=== PATIENT | male | born 1930 | race Caucasian/White ===

== ENCOUNTER → 2016-05-22 | Outpatient (CLI) | payer MEDICARE, OTHER ==
--- NOTE | 2016-05-22 13:07 | US ---
EXAMINATION TYPE: US kidneys/renal and bladder DATE OF EXAM: 05/22/2016 12:48 PM COMPARISON: 06/19/15 CLINICAL HISTORY: R31.9 Hematuria. Trauma and surgery to left kidney at age 18 per patient EXAM MEASUREMENTS: Right Kidney: 10.1 x 4.7 x 4.8 cm Left Kidney: 8.9 x 6.7 x 4.4 cm Post Void Residual Volume: 0.2 mL Findings: Right Kidney: couple of cortical cysts noted with larger at upper pole = 1.3 x 1.1 x 1.2cm; lower josafat e microcalcification is noted Left Kidney: possible hyperechoic scar area, oval shaped, noted upper medial cortex 2.0 x 1.4 x 0.8cm Bladder: not fully distended Bilateral Jets seen: yes Normal Post Void Residual: Yes IMPRESSION: 1. Right-sided renal cortical cysts and microcalcification. 2. Probable scarring left kidney.
== END | disposition home or self-care (01) ==
LOC: RADUSWWP 12:02
PROVIDERS: ATTEND Family Medicine
DX: N28.1 Cyst of kidney, acquired (principal); N28.89 Other specified disorders of kidney and ureter
CPT/HCPCS: 76770

== ENCOUNTER → 2016-06-14 | Outpatient (CLI) | payer MEDICARE, OTHER ==
--- NOTE | 2016-06-14 11:28 | MR ---
MR brain without contrast HISTORY: Dizzy, I 63.9, I 48.91, R25.1 Multiplanar multisequence imaging obtained through the brain. No comparisons There is no restricted diffusion. Cortical atrophy is likely age-related. There is no hemorrhage or h ydrocephalus. Periventricular white matter shows hyperintensity in confluent and scattered focal area s on inversion recovery and T2-weighted sequences. There are normal flow voids present. The orbits sh ow a symmetric appearance. Mild inflammatory change present within the maxillary sinus, ethmoid air c ells, some distortion of the turbinates on the left is noted, this may be congenital or represent old trauma and could be better evaluated with CT. Cerebellopontine angles, corpus callosum, pituitary, c ervical medullary junction are normal. IMPRESSION: Age-related changes of atrophy and probable chronic small vessel ischemia, sinus disease and additional findings above.
== END | disposition home or self-care (01) ==
LOC: RADMRIMAIN 07:00
PROVIDERS: ATTEND Psychiatry & Neurology Neurology
DX: G31.1 Senile degeneration of brain, not elsewhere classified (principal)
CPT/HCPCS: 70551

== ENCOUNTER 2016-07-15 10:51 | Inpatient (IN) | payer MEDICARE, OTHER ==
[2016-07-15] MEDS ORDERED: ASPIRIN 81 MG CHEW PO STA (11:23)
[2016-07-15] MEDS ORDERED: NITROGLYCERIN OINT 1 INCH/GM PACKET TOPICAL STA (11:23)
--- NOTE | 2016-07-15 11:27 | ED ---
General Adult HPI - General Chief complaint: Chest Pain Stated complaint: chest pain Time Seen by Provider: 07/15/16 11:00 Source: family, RN notes reviewed Mode of arrival: wheelchair Limitations: no limitations - History of Present Illness Initial comments: This is an 86-year-old male with past medical history significant for 2 cardiac stents as well as high cholesterol. Patient also has a history of atrial fibrillation he has been on flecainide but that caused him problems so they put him on a beta masoud as well as water pill. They recently took him off the water pill and a beta masoud. Patient was in today because his been having chest pain for a day and a half. Patient states the pain is intermittent lasting anywhere between 10 minutes and half an hour. Patient states also associated with some shortness of breath. Patient denies any palpitations. Patient denies abdominal pain patient denies nausea vomiting diarrhea. Patient denies any diaphoresis. Patient has not noticed anything that makes it better or worse. Patient denies headache patient denies numbness weakness. Patient denies lightheadedness dizziness or near syncopal episode. Patient was at the neurologists office yesterday and he called the comber tender's office they took him off his beta masoud and Lasix. But because his pain continues today he decided to come to the emergency department. - Related Data Home Medications Medication Instructions Recorded Confirmed Atorvastatin Calcium [Lipitor] 10 mg PO HS 04/14/16 07/15/16 Cholecalciferol [Vitamin D3] 1,000 unit PO DAILY 04/14/16 07/15/16 Carbidopa-Levodopa ER 25-100Mg 1 tab PO BID@0800,1300 07/15/16 07/15/16 [Sinemet ER 25-100] Spironolactone [Aldactone] 25 mg PO DAILY 07/15/16 07/15/16 Previous Rx's Medication Instructions Recorded Apixaban [Eliquis] 2.5 mg PO BID #60 tablet 04/16/16 Aspirin 81 mg PO DAILY #30 chew 04/16/16 Allergies Allergy/AdvReac Type Severity Reaction Status Date / Time flecainide Allergy Swelling Verified 07/15/16 12:08 steroids Allergy Rapid Uncoded 07/15/16 12:08 Heart Rate Review of Systems ROS Statement: Those systems with pertinent positive or pertinent negative responses have been documented in the HPI. ROS Other: All systems not noted in ROS Statement are negative. Past Medical History Past Medical History: Atrial Fibrillation, Hyperlipidemia, Myocardial Infarction (ND) Last Myocardial Infarction Date:: 2000 History of Any Multi-Drug Resistant Organisms: None Reported Past Surgical History: Heart Catheterization With Stent, Joint Replacement, Orthopedic Surgery Additional Past Surgical History / Comment(s): LEFT KNEE REPLACED Date of Last Stent Placement:: 2000 Past Psychological History: No Psychological Hx Reported Smoking Status: Never smoker Past Alcohol Use History: None Reported Past Drug Use History: None Reported General Exam - General Exam Comments Initial Comments: GENERAL: Patient is well-developed and well-nourished. Patient is nontoxic and well- hydrated and is in mild distress. ENT: Neck is soft and supple. No significant lymphadenopathy is noted. Oropharynx is clear. Moist mucous membranes. Neck has full range of motion without eliciting any pain. EYES: The sclera were anicteric and conjunctiva were pink and moist. Extraocular movements were intact and pupils were equal round and reactive to light. Eyelids were unremarkable. PULMONARY: Unlabored respirations. Good breath sounds bilaterally. No audible rales rhonchi or wheezing was noted. CARDIOVASCULAR: Patient has been irregular heartbeat. ABDOMEN: Soft and nontender with normal bowel sounds. No palpable organomegaly was noted. There is no palpable pulsatile mass. SKIN: Skin is clear with no lesions or rashes and otherwise unremarkable. NEUROLOGIC: Patient is alert and oriented x3. Cranial nerves II through XII are grossly intact. Motor and sensory are also intact. Normal speech, volume and content. Symmetrical smile. MUSCULOSKELETAL: Normal extremities with adequate strength and full range of motion. No lower extremity swelling or edema. No calf tenderness. LYMPHATICS: No significant lymphadenopathy is noted PSYCHIATRIC: Normal psychiatric evaluation. Normal interpersonal interactions appears functionally intact in deals appropriately with others. No signs of depression. No signs of anxiety. Limitations: no limitations Course Vital Signs 07/15/16 07/15/16 07/15/16 10:54 12:10 12:44 Temperature 97.4 F L Pulse Rate 80 94 100 Respiratory 18 20 16 Rate Blood Pressure 106/63 141/63 110/78 O2 Sat by Pulse 96 99 Oximetry 07/15/16 14:27 Temperature 101.1 F H Pulse Rate 96 Respiratory 18 Rate Blood Pressure 125/74 O2 Sat by Pulse 96 Oximetry Medical Decision Making - Medical Decision Making EKG showed atrial fibrillation at 92 bpm QRS is 82 QT interval 338 QTC is 417. Patient's EKG shows no ST segment elevation or depression or T-wave abdomen obese. Chest x-ray shows no acute abnormality. Patient will not be started on heparin because he is on eliquis. I spoke with Dr. Prado and I admitted the patient wrote admitting orders and consult cardiology. - Lab Data Result diagrams: 07/15/16 12:00 07/15/16 12:00 Lab Results 07/15/16 07/15/16 07/15/16 Range/Units 12:00 12:00 12:00 WBC 10.9 H (3.8-10.6) k/uL RBC 5.09 (4.30-5.90) m/uL Hgb 15.4 (13.0-17.5) gm/dL Hct 47.7 (39.0-53.0) % MCV 93.6 (80.0-100.0) fL MCH 30.2 (25.0-35.0) pg MCHC 32.3 (31.0-37.0) g/dL RDW 14.1 (11.5-15.5) % Plt Count 155 (150-450) k/uL Neutrophils % 77 % Lymphocytes % 12 % Monocytes % 8 % Eosinophils % 1 % Basophils % 0 % Neutrophils # 8.4 H (1.3-7.7) k/uL Lymphocytes # 1.3 (1.0-4.8) k/uL Monocytes # 0.9 (0-1.0) k/uL Eosinophils # 0.1 (0-0.7) k/uL Basophils # 0.0 (0-0.2) k/uL ESR 48 H (0-15) mm/hr PT (9.0-12.0) sec INR (<1.1) APTT (22.0-30.0) sec Sodium 142 (137-145) mmol/L Potassium 5.0 (3.5-5.1) mmol/L Chloride 101 (98-107) mmol/L Carbon Dioxide 28 (22-30) mmol/L Anion Gap 13 mmol/L BUN 45 H (9-20) mg/dL Creatinine 1.90 H (0.66-1.25) mg/dL Est GFR (MDRD) Af Amer 41 (>60 ml/min/1.73 sqM) Est GFR (MDRD) Non-Af 34 (>60 ml/min/1.73 sqM) Glucose 122 H (74-99) mg/dL Calcium 9.7 (8.4-10.2) mg/dL Magnesium 2.5 H (1.6-2.3) mg/dL Total Bilirubin 1.7 H (0.2-1.3) mg/dL AST 21 (17-59) U/L ALT 19 L (21-72) U/L Alkaline Phosphatase 85 (38-126) U/L Total Creatine Kinase 91 (55-170) U/L CK-MB (CK-2) 2.6 H* (0.0-2.4) ng/mL CK-MB (CK-2) Rel Index 2.9 Troponin I 0.056 H* (0.000-0.034) ng/mL NT-Pro-B Natriuret Pep pg/mL Total Protein 8.0 (6.3-8.2) g/dL Albumin 4.3 (3.5-5.0) g/dL Vitamin B12 pg/mL TSH 1.800 (0.465-4.680) mIU/L 07/15/16 07/15/16 07/15/16 Range/Units 12:00 12:00 12:00 WBC (3.8-10.6) k/uL RBC (4.30-5.90) m/uL Hgb (13.0-17.5) gm/dL Hct (39.0-53.0) % MCV (80.0-100.0) fL MCH (25.0-35.0) pg MCHC (31.0-37.0) g/dL RDW (11.5-15.5) % Plt Count (150-450) k/uL Neutrophils % % Lymphocytes % % Monocytes % % Eosinophils % % Basophils % % Neutrophils # (1.3-7.7) k/uL Lymphocytes # (1.0-4.8) k/uL Monocytes # (0-1.0) k/uL Eosinophils # (0-0.7) k/uL Basophils # (0-0.2) k/uL ESR (0-15) mm/hr PT 11.8 (9.0-12.0) sec INR 1.2 (<1.1) APTT 27.4 (22.0-30.0) sec Sodium (137-145) mmol/L Potassium (3.5-5.1) mmol/L Chloride (98-107) mmol/L Carbon Dioxide (22-30) mmol/L Anion Gap mmol/L BUN (9-20) mg/dL Creatinine (0.66-1.25) mg/dL Est GFR (MDRD) Af Amer (>60 ml/min/1.73 sqM) Est GFR (MDRD) Non-Af (>60 ml/min/1.73 sqM) Glucose (74-99) mg/dL Calcium (8.4-10.2) mg/dL Magnesium (1.6-2.3) mg/dL Total Bilirubin (0.2-1.3) mg/dL AST (17-59) U/L ALT (21-72) U/L Alkaline Phosphatase (38-126) U/L Total Creatine Kinase (55-170) U/L CK-MB (CK-2) (0.0-2.4) ng/mL CK-MB (CK-2) Rel Index Troponin I (0.000-0.034) ng/mL NT-Pro-B Natriuret Pep 6520 pg/mL Total Protein (6.3-8.2) g/dL Albumin (3.5-5.0) g/dL Vitamin B12 510 pg/mL TSH (0.465-4.680) mIU/L Critical Care Time Critical Care Time: Yes Total Critical Care Time: 35 Disposition Clinical Impression: Elevated troponin I level, Unstable angina pectoris, Pneumonia Disposition: ADMITTED IP TO THIS [facility] Time of Disposition: 14:05
[2016-07-15 12:21] LABS: Basophils % (A) 0 %; CH 31.1; CHCM 33.3; Eosinophils # (A) 0.1 k/uL (0-0.7); Eosinophils % (A) 1 %; HCT 47.7 % (39.0-53.0); HDW 2.26; HGB 15.4 gm/dL (13.0-17.5); Luc # (Auto) 0.23; Luc % (Auto) 2; Lymphocytes # (A) 1.3 k/uL (1.0-4.8); Lymphocytes % (A) 12 %; MCH 30.2 pg (25.0-35.0); MCHC 32.3 g/dL (31.0-37.0); MCV 93.6 fL (80.0-100.0); Mean Platelet Volume 7.5; Monocytes # (A) 0.9 k/uL (0-1.0); Monocytes % (A) 8 %; Neutrophils # (A) 8.4 k/uL (1.3-7.7); Neutrophils % (A) 77 %; RBC 5.09 m/uL (4.30-5.90); RDW 14.1 % (11.5-15.5); WBC 10.9 k/uL (3.8-10.6); WBC (Perox) 11.31
[2016-07-15 12:31] LABS: INR 1.2 (<1.1); Partial Thromboplastin Time 27.4 sec (22.0-30.0); Prothrombin Time 11.8 sec (9.0-12.0)
[2016-07-15 12:35] LABS: Calcium 9.7 mg/dL (8.4-10.2); Magnesium 2.5 mg/dL (1.6-2.3); Total Bilirubin 1.7 mg/dL (0.2-1.3)
--- NOTE | 2016-07-15 12:39 | XR ---
EXAMINATION TYPE: XR chest 2V DATE OF EXAM: 07/15/2016 12:25 PM COMPARISON: 04/14/2016 HISTORY: 86-year-old male with chest pain and shortness of breath TECHNIQUE: Frontal and lateral views FINDINGS: The heart is upper limits of normal in size. Atherosclerotic arch calcifications with similar mild el ongation of the thoracic aorta. There are some patchy peripheral left basilar opacity. No pleural eff usion. IMPRESSION: 1. Borderline cardiomegaly. 2. Some hypoventilatory changes. 3. Patchy peripheral left basilar opacity likely represents atelectasis.
[2016-07-15 13:13] LABS: Creatine Kinase MB 2.6 ng/mL (0.0-2.4); Troponin I 0.056 ng/mL (0.000-0.034)
[2016-07-15] MEDS ORDERED: HEPARIN SODIUM,PORCINE 5,000 UNIT/ML 1 ML VIAL IV ONE (14:03)
[2016-07-15] MEDS ORDERED: NITROGLYCERIN SL TABS 0.4 MG TAB SUBLINGUAL PRN (14:05)
[2016-07-15] MEDS ORDERED: HEPARIN SODIUM,PORCINE/D5W PMX 25,000 UNIT in DEXTROSE/WATER 1 500ML.BAG IV SCH (14:15)
[2016-07-15 14:17] LABS: Erythrocyte Sedimentation Rate 48 mm/hr (0-15)
[2016-07-15] MEDS ORDERED: IBUPROFEN 600 MG TAB PO STA (14:39)
[2016-07-15] MEDS ORDERED: ACETAMINOPHEN TAB 500 MG TAB PO STA (14:39)
[2016-07-15] MEDS ORDERED: LEVOFLOXACIN 750MG-D5W PMX 750 MG in DEXTROSE/WATER 1 150ML.BAG IVPB STA (14:39)
[2016-07-15] MEDS: NITROGLYCERIN OINT 1 INCH/GM PACKET TOPICAL SCH ×2 (17:09→23:40)
--- NOTE | 2016-07-15 18:12 | CONS ---
DATE OF CONSULTATION: Liudmila Lara is an 86-year-old gentleman with history of coronary artery disease, status post angioplasty of right coronary artery in 2000, hypertension, dyslipidemia, chronic diastolic heart failure, and paroxysmal atrial fibrillation who presented to the hospital having had episodes of chest pain. He describes it as intermittent episodes of precordial chest pressure mild to moderate intensity, came on at rest. Became worse. He also had discomfort involving shoulder area. Due to this, he came to hospital and his troponin was elevated at 0.05 for which he is admitted to hospital. He denies chest pain at the time of my evaluation. EKG shows atrial fibrillation. Past medical history is significant for coronary artery disease, status post angioplasty, hypertension, dyslipidemia, chronic atrial fibrillation, parkinsonism and possible TIA. Medications at home include: 1. Aldactone 25 mg daily. 2. Sinemet. 3. Vitamin D. 4. Lipitor. 5. Aspirin. 6. Eliquis. ALLERGIC TO FLECAINIDE AND STEROIDS. FAMILY HISTORY: Negative for premature coronary artery disease. SOCIAL HISTORY: Negative for smoking, ETOH abuse or drug abuse. REVIEW OF SYSTEMS: HEENT: Unremarkable. CARDIAC: As described above. RESPIRATORY: As described above. GI: Negative. GENITOURINARY: Negative. Allergy/immunology: Negative. SKIN: Negative. MUSCULOSKELETAL: Significant for arthritis. PSYCHOSOCIAL: Negative. ENDOCRINE: Negative. DERM: Negative. CONSTITUTIONAL: Negative. Oncological: Negative. The rest of the system review is not relevant. On exam, patient heart rate is 96 beats per minute, blood pressure 130/74, respiratory rate is 18. Chest exam reveals diminished air entry at the bases without any crackles or rhonchi. Heart exam reveals first and second heart sounds and a systolic murmur at the apex. ABDOMEN: Soft. Exam of the extremities did not reveal any edema. Peripheral pulses are diminished. ASSESSMENT: 1. Non-ST segment elevation myocardial infarction. 2. Chronic atrial fibrillation with controlled ventricular rate. 3. Coronary artery disease, status post angioplasty. 4. Hypertension. 5. Dyslipidemia. PLAN: Given the advanced age, possible recent transient ischemic attack, Parkinsonism and a questionable dementia, the plan at this stage is to treat him with optimal medical therapy and see how he does. I will obtain a 2-D echo to evaluate his LV function. Further changes to management based on how he progresses from here.
[2016-07-15 19:52] LABS: Creatine Kinase MB 2.7 ng/mL (0.0-2.4); Troponin I 0.079 ng/mL (0.000-0.034)
[2016-07-15] MEDS: APIXABAN 2.5 MG TABLET PO SCH (23:39)
[2016-07-15] MEDS: ATORVASTATIN 10 MG TAB PO SCH (23:39)
[2016-07-16 00:56] LABS: Creatine Kinase MB 2.2 ng/mL (0.0-2.4)
[2016-07-16 01:02] LABS: Troponin I 0.057 ng/mL (0.000-0.034)
[2016-07-16 03:15] LABS: Appearance,Urine Clear (Clear); Bacteria,Urine Rare /hpf; Bilirubin,Urine Negative (Negative); Glucose,Urine (UA) Negative (Negative); Ketones,Urine Negative (Negative); Leukocyte Esterase,Urine Negative (Negative); Nitrite,Urine Negative (Negative); Particle Count 624; Protein,Urine Negative (Negative); RBC,Urine 3 /hpf (0-5); Specific Gravity,Urine 1.005 (1.001-1.035); UA Billing (MACRO vs. MICRO) MICRO; Urobilinogen,Urine <2.0 mg/dL (<2.0); WBC,Urine <1 /hpf (0-5)
[2016-07-16] MEDS: NITROGLYCERIN OINT 1 INCH/GM PACKET TOPICAL SCH ×3 (06:22→17:04)
[2016-07-16 06:39] LABS: Basophils % (A) 0 %; CHCM 33.3; Eosinophils # (A) 0.2 k/uL (0-0.7); Eosinophils % (A) 2 %; HCT 41.1 % (39.0-53.0); HDW 2.26; HGB 13.2 gm/dL (13.0-17.5); Luc # (Auto) 0.28; Luc % (Auto) 3; Lymphocytes # (A) 1.2 k/uL (1.0-4.8); Lymphocytes % (A) 10 %; MCHC 32.2 g/dL (31.0-37.0); MCV 93.4 fL (80.0-100.0); Mean Platelet Volume 7.7; Monocytes # (A) 0.9 k/uL (0-1.0); Monocytes % (A) 8 %; Neutrophils # (A) 8.6 k/uL (1.3-7.7); Neutrophils % (A) 77 %; RBC 4.41 m/uL (4.30-5.90); RDW 14.1 % (11.5-15.5); WBC 11.1 k/uL (3.8-10.6); WBC (Perox) 11.45
[2016-07-16 06:49] LABS: Calcium 9.2 mg/dL (8.4-10.2)
--- NOTE | 2016-07-16 08:10 | HP ---
DATE OF ADMISSION: 07/15/2016 The chief complaint is chest pain. HISTORY OF PRESENT ILLNESS: This 86-year-old gentleman with the past medical history of multiple medical problems including atrial fibrillation, CAD, history of chest pain, history of hyperlipidemia, history of myocardial infarction, history of DJD, history of abdominal aortic aneurysm, history of CAD, stent, history of DJD, being followed by Dr. Lara in outpatient setting is complaining of chest pain. Chest pain is rather vague, felt in the anterior part of the chest and sometimes radiating up to the throat according to him. The patient was a flecainide for atrial fibrillation. The patient was recently off water pill and beta blockers according to him. The pain lasting nearly from 10 minutes to 1/2 hour associated with some shortness of breath. No history of palpitation or diaphoresis. Because of worsening pain, patient came to [facility], admitted for further evaluation and treatment. The troponins were found to be 0.050 and 0.019. The creatinine was elevated to 1.90. The EKG shows atrial fibrillation. The patient also had some short runs of V. tach also after admission. Cardiology evaluation in progress. There is no history of fever, rigors or chills. No history of headache, loss of consciousness or seizures at this time. PAST MEDICAL HISTORY: History of atrial fibrillation, history of CAD, history of hyperlipidemia, history of myocardial infarction, DJD, abdominal aortic aneurysm. Medications prior to admission include home medications: 1. Aldactone 25 mg p.o. daily. 2. Sinemet ER 25-100 one p.o. b.i.d. 3. Vitamin D3 one thousand units daily. 4. Lipitor 10 mg q.h.s. 5. Aspirin 81 mg daily. 6. Eliquis 2.5 mg p.o. b.i.d. Allergies are FLECAINIDE and STEROIDS. FAMILY HISTORY: History of pneumonia and heart problems. SOCIAL HISTORY: No history of smoking, no history of alcohol intake. REVIEW OF SYSTEMS: ENT: No diminished hearing or diminished vision. CARDIOVASCULAR: As mentioned earlier. RESPIRATORY: As mentioned earlier. GI: No nausea. : No dysuria. NERVOUS SYSTEM: No numbness or weakness. ALLERGY/IMMUNOLOGY: No asthma or hayfever. MUSCULOSKELETAL: As mentioned earlier. HEMATOLOGY/ONCOLOGY: No history of anemia. ENDOCRINE: No history of diabetes or hypothyroidism. CONSTITUTIONAL: As mentioned earlier. DERMATOLOGY: Negative. RHEUMATOLOGY: Negative. PSYCHIATRY: Negative. PHYSICAL EXAMINATION: Alert and oriented x2. Pulse 95, blood pressure 120/69, respirations 18, temperature is 97.6, T-max is 101.1, pulse ox 97% on 2 L. HEENT: Conjunctivae normal, oral mucosa moist. NECK: No jugular venous distension, no carotid bruit, no lymph node enlargement. CARDIOVASCULAR: S1, S2, muffled. No S3, no S4. RESPIRATORY: Breath sounds diminished in the bases. A few scattered rhonchi, no crackles. Abdomen is soft, nontender. No mass palpable. bs + EXTREMITIES: Legs no edema, no swelling. NERVOUS SYSTEM: Higher functions as mentioned, moves all 4 limbs, no focal motor deficits. LYMPHATICS: No lymph node enlargement in the neck. SKIN: No ulcer, rash or bleeding. LABS: WBC 10.9, INR 1.2, creatinine 1.90. Troponin noted. ASSESSMENT: 1. Chest pain, possible acute bti-RI-upxectb elevation myocardial infarction. 2. Atrial fibrillation. 3. Short-term soft nonsustained ventricular tachycardia. 4. Increased creatinine with chronic kidney disease stage III. 5. Increased total bilirubin. 6. Increased WBC, possibly reactive. 7. Fever for evaluation, possible viral syndrome. 8. History of atrial fibrillation. 9. History of coronary artery disease. 10. History of hyperlipidemia. 11. History of myocardial infarction. 12. History of DJD. 13. History of abdominal aortic aneurysm. 14. History of coronary artery disease, stent. 15. History of motion sickness. 16. FULL CODE. RECOMMENDATION: In this 86-year-old gentleman, who presented with multiple complex medical issues. Will monitor the patient closely. Continue with antiplatelet agents. The patient already on apixaban. Otherwise, empiric antibiotics have been given for the fever. We have obtained a Cardiology consultation. Continue to monitor. Will follow the cultures and monitor creatinine closely. Labs will be ordered. Home medication reconciliation will be done. Overall prognosis guarded because of multiple complex medical issues. Further recommendations to follow. A copy of this will be forwarded to Dr. Rusty Lara who is the primary physician. Will hold the Aldactone now that the potassium is at the upper limits of normal at 5. As mentioned earlier, will monitor the fluid closely. Chest x-ray was reviewed personally by me, discussed this with the patient. Further recommendations to follow. Prognosis guarded. MTDD
[2016-07-16] MEDS: ASPIRIN 325 MG TAB PO SCH (08:29)
[2016-07-16] MEDS: CARBIDOPA-LEVODOPA ER 25-100MG 1 EACH TABLET.ER PO SCH ×2 (08:29→12:22)
[2016-07-16] MEDS: APIXABAN 2.5 MG TABLET PO SCH ×2 (08:29→23:29)
[2016-07-16] MEDS: CHOLECALCIFEROL 1,000 UNIT TAB PO SCH (08:30)
[2016-07-16] MEDS ORDERED: ASPIRIN 81 MG CHEW PO SCH (09:00)
--- NOTE | 2016-07-16 10:31 | ECHOF ---
Referral Reason:Elevated trops MEASUREMENTS -------- HEIGHT: 167.6 cm WEIGHT: 75.8 kg BP: IVSd: 2.1 cm (0.6 - 1.1) LVIDd: 2.9 cm (3.9 - 5.3) LVPWd: 1.5 cm (0.6 - 1.1) IVSs: 2.0 cm LVIDs: 2.2 cm LVPWs: 2.2 cm Ao Diam: 3.5 cm (2.0 - 3.7) AV Cusp: 1.7 cm (1.5 - 2.6) LA Diam: 3.1 cm (2.7 - 3.8) MV EXCURSION: 14.577 mm (> 18.000) MV EF SLOPE: 89 mm/s (70 - 150) EPSS: 0.5 cm AR PHT: 359 ms RAP: 5.00 mmHg RVSP: 10.82 mmHg FINDINGS -------- Atrial fibrillation. This was a technically adequate study. The left ventricular size is normal. There is severe concentric left ventricular hypertrophy. Overall left ventricular systolic function is mildly impaired with, an EF between 45 - 50 %. Basal inferoseptal LV wall motion is hypokinetic. Inferior basal Hypokinesis The right ventricle is normal in size and function. The left atrium is normal in size. The right atrium is normal in size. There is mild aortic valve sclerosis. There is mild aortic regurgitation. Mild mitral annular calcification present. Mild mitral regurgitation is present. Mild tricuspid regurgitation present. The right ventricular systolic pressure, as measured by Doppler, is 10.82mmHg. There is no pulmonic regurgitation present. The aortic root size is normal. There is no pericardial effusion. CONCLUSIONS -------- 1. Atrial fibrillation. 2. Mild mitral annular calcification present. 3. Mild mitral regurgitation is present. 4. Mild tricuspid regurgitation present. 5. The right ventricular systolic pressure, as measured by Doppler, is 10.82mmHg. 6. There is no pulmonic regurgitation present. 7. The aortic root size is normal. 8. There is no pericardial effusion. 9. This was a technically adequate study. 10. There is severe concentric left ventricular hypertrophy. 11. Overall left ventricular systolic function is mildly impaired with, an EF between 45 - 50 %. 12. Basal inferoseptal LV wall motion is hypokinetic. 13. Inferior basal Hypokinesis 14. The left atrium is normal in size. 15. There is mild aortic valve sclerosis. 16. There is mild aortic regurgitation. [employer]: Angelica Rubio RDCS
--- NOTE | 2016-07-16 14:24 | P.PN ---
Subjective Principal diagnosis: Non-STEMI This is an 86-year-old gentleman with history of coronary artery disease and prior angioplasty, history of hypertension, hyperlipidemia, paroxysmal atrial fibrillation who presented to the hospital with non-Q-wave myocardial infarction. He was seen in consultation by Dr. Calderon and recommendation was given to maximize medical therapy. Echocardiogram with Doppler study was performed which revealed an ejection fraction of 45-50%. Basal inferior septal wall was hypokinetic. Blood pressure 124/64 heart rate in the 60s. WBC 11.1, hemoglobin 13.2, potassium 5.0, BUN 50, creatinine 2.1. Patient is currently on Eliquis for anticoagulation, we will decrease his aspirin to 81 mg daily. Discontinue Nitropaste. Start a low dose of beta masoud. Patient is not currently on an mary because of marginal blood pressure , we will monitor this daily and perhaps initiate an MARY inhibitor in the next couple of days if blood pressure tolerates. Objective - Vital Signs Vital signs: Vital Signs Temp 97.6 F 07/16/16 11:30 Pulse 64 07/16/16 11:30 Resp 18 07/16/16 11:30 BP 124/64 07/16/16 11:30 Pulse Ox 94 L 07/16/16 11:30 Intake & Output 07/15/16 07/16/16 07/16/16 18:59 06:59 18:59 Intake Total 240 500 120 Output Total 825 Balance 240 -325 120 Weight 77.111 kg 76 kg Intake: Oral 240 500 120 Output: Urine 825 Other: Voiding Method Urinal Urinal Urinal # Voids 1 1 # Bowel Movements 1 - Exam PHYSICAL EXAMINATION: HEENT: Head is atraumatic, normocephalic. Pupils equal, round. Neck is supple. There is no elevated jugular venous pressure. HEART EXAMINATION: R S1 and S2 1 systolic murmur is heard. CHEST EXAMINATION: Lungs are clear to auscultation and precussion. No chest wall tenderness is noted on palpation or with deep breathing. ABDOMEN: Soft, nontender. Bowel sounds are heard. No organomegaly noted. EXTREMITIES: 1+ peripheral pulses with no evidence of peripheral edema and no calf tenderness noted. NEUROLOGIC patient is awake, alert and oriented -2. . - Labs CBC & Chem 7: 07/16/16 05:44 07/16/16 05:44 Labs: Abnormal Lab Results - Last 24 Hours (Table) 07/15/16 07/16/16 07/16/16 Range/Units 18:43 00:02 03:00 WBC (3.8-10.6) k/uL Plt Count (150-450) k/uL Neutrophils # (1.3-7.7) k/uL BUN (9-20) mg/dL Creatinine (0.66-1.25) mg/dL Glucose (74-99) mg/dL CK-MB (CK-2) 2.7 H* (0.0-2.4) ng/mL Troponin I 0.079 H* 0.057 H* (0.000-0.034) ng/mL Urine Blood Moderate H (Negative) Urine Bacteria Rare H (None) /hpf 07/16/16 07/16/16 Range/Units 05:44 05:44 WBC 11.1 H (3.8-10.6) k/uL Plt Count 134 L (150-450) k/uL Neutrophils # 8.6 H (1.3-7.7) k/uL BUN 50 H (9-20) mg/dL Creatinine 2.13 H (0.66-1.25) mg/dL Glucose 122 H (74-99) mg/dL CK-MB (CK-2) (0.0-2.4) ng/mL Troponin I (0.000-0.034) ng/mL Urine Blood (Negative) Urine Bacteria (None) /hpf Microbiology - Last 24 Hours (Table) 07/16/16 03:00 Urine Culture - Preliminary Urine,Voided Assessment and Plan (1) NSTEMI (non-ST elevated myocardial infarction) Status: Acute (2) Chronic a-fib Status: Acute (3) CAD (coronary artery disease) Status: Acute (4) HTN (hypertension) Status: Acute (5) Hyperlipemia Status: Acute (6) Parkinson disease Status: Acute Plan: Cardiology's perspective we will decrease the aspirin to 81 mg daily, discontinue Nitropaste and add small dose of beta masoud. If the blood pressure tolerates consider the addition of an MARY inhibitor within 24-48 hours. DNP note has been reviewed, I agree with a documented findings and plan of care. Patient was seen and examined.
[2016-07-16 15:19] VITALS: BMI 27.0
[2016-07-16] MEDS ORDERED: LEVOFLOXACIN 750MG-D5W PMX 750 MG in DEXTROSE/WATER 1 150ML.BAG IVPB SCH (16:00)
[2016-07-16] MEDS: ATORVASTATIN 10 MG TAB PO SCH (23:25)
[2016-07-17] MEDS ORDERED: SODIUM CHLORIDE 0.9% 1,000 ML IV SCH (00:45)
[2016-07-17 06:29] LABS: Basophils % (A) 0 %; CHCM 33.1; Eosinophils # (A) 0.3 k/uL (0-0.7); Eosinophils % (A) 4 %; HCT 43.4 % (39.0-53.0); HDW 2.29; Luc # (Auto) 0.19; Luc % (Auto) 2; Lymphocytes # (A) 1.5 k/uL (1.0-4.8); Lymphocytes % (A) 16 %; MCH 30.3 pg (25.0-35.0); MCHC 32.3 g/dL (31.0-37.0); Mean Platelet Volume 7.5; Monocytes # (A) 0.5 k/uL (0-1.0); Monocytes % (A) 5 %; Neutrophils # (A) 6.9 k/uL (1.3-7.7); Neutrophils % (A) 73 %; RBC 4.62 m/uL (4.30-5.90); RDW 14.1 % (11.5-15.5); WBC 9.4 k/uL (3.8-10.6); WBC (Perox) 9.55
[2016-07-17] MEDS: NITROGLYCERIN OINT 1 INCH/GM PACKET TOPICAL SCH ×3 (06:36→07:57)
[2016-07-17 07:28] LABS: Calcium 9.8 mg/dL (8.4-10.2)
[2016-07-17] MEDS: ASPIRIN 325 MG TAB PO SCH (07:58)
[2016-07-17] MEDS: APIXABAN 2.5 MG TABLET PO SCH ×2 (07:58→20:22)
[2016-07-17] MEDS: CARBIDOPA-LEVODOPA ER 25-100MG 1 EACH TABLET.ER PO SCH ×2 (07:58→12:00)
[2016-07-17] MEDS: CHOLECALCIFEROL 1,000 UNIT TAB PO SCH (07:58)
--- NOTE | 2016-07-17 09:15 | PN ---
DATE OF SERVICE: 07/16/2016 This is an 86-year-old gentleman who was admitted with chest pain, possible acute non-ST elevation myocardial infarction, is being closely monitored. Patient's medical treatment, seen and evaluated the patient with the nurse practitioner. Please refer to nurse practitioner's notes and impression documented as ascribed for further information.
--- NOTE | 2016-07-17 09:53 | P.NPCON ---
History of Present Illness - Reason for Consult acute renal failure - History of Present Illness Reason for consultation: Acute kidney injury History of present illness: Patient is a 86-year-old male seen in renal consultation for acute kidney injury on chronic kidney disease. Patient has chronic kidney disease stage III with baseline creatinine near 1.4-1.5 secondary to cardiorenal syndrome. His creatinine this admission was elevated at 1.9 and was up to 2.1 yesterday. It is down to 1.9 again today. Patient presented with chest pain and dyspnea. He was subsequently diagnosed with non-ST elevated myocardial infarction. There is question for possible cardiac catheterization. He does have ejection fraction of 45-50%. He is currently resting in bed. Denies any active chest pain or shortness of breath. No vomiting or diarrhea. Urinalysis was noted to be benign. Denies lower extremity edema. He has been voiding without any gross hematuria. Denies use of NSAIDs at home. Denies any family history of renal disease. Vital signs are stable. General: The patient appeared well nourished and normally developed. HEENT: Head exam is unremarkable. Neck is without jugular venous distension. LUNGS: Lungs are clear to auscultation and percussion. Breath sounds decreased. HEART: Rate and Rhythm are regular. First and second heart sounds normal. No murmurs, rubs or gallops. ABDOMEN: Abdominal exam reveals normal bowel sounds. Non-tender and non- distended. No evidence of peritonitis. EXTREMITITES: No clubbing, cyanosis, or edema. Past Medical History Past Medical History: Atrial Fibrillation, Coronary Artery Disease (CAD), Chest Pain / Angina, Hyperlipidemia, Myocardial Infarction (IL), Osteoarthritis (OA) Additional Past Medical History / Comment(s): DJD, AAA-NOT SURE OF SIZE, "CYSTS ON EACH KIDNEY" Last Myocardial Infarction Date:: 2000 History of Any Multi-Drug Resistant Organisms: None Reported Past Surgical History: Heart Catheterization With Stent, Joint Replacement, Orthopedic Surgery Additional Past Surgical History / Comment(s): LEFT KNEE REPLACED, YOSELIN CATARACTS , CARDIAC STENTS X2, "LT KIDNEY BX-NEG" Past Anesthesia/Blood Transfusion Reactions: Motion Sickness Date of Last Stent Placement:: 2000 Past Psychological History: No Psychological Hx Reported Additional Psychological History / Comment(s): PT LIVES WITH HIS IN A SINGLE LEVEL HOME THAT HAS 3 STEPS TO GET INTO HOME.NO PETS. NO RECENT TRAVEL. USES A CANE OR WALKER WHEN UP. NO OTHER MEDICAL EQUIPMENT IN HOME. NO OUTSIDE SERVICES. 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 Smoking Status: Never smoker Past Alcohol Use History: None Reported Past Drug Use History: None Reported - Past Family History Mother Additional Family Medical History / Comment(s): "HEART PROBLEMS" Father Family Medical History: Pneumonia Medications and Allergies Home Medications Medication Instructions Recorded Confirmed Type Atorvastatin Calcium [Lipitor] 10 mg PO HS 04/14/16 07/15/16 History Cholecalciferol [Vitamin D3] 1,000 unit PO DAILY 04/14/16 07/15/16 History Carbidopa-Levodopa ER 25-100Mg 1 tab PO BID@0800,1300 07/15/16 07/15/16 History [Sinemet ER 25-100] Spironolactone [Aldactone] 25 mg PO DAILY 07/15/16 07/15/16 History Allergies Allergy/AdvReac Type Severity Reaction Status Date / Time flecainide Allergy Swelling Verified 07/15/16 12:08 steroids Allergy Rapid Uncoded 07/15/16 12:08 Heart Rate Physical Exam Vitals: Vital Signs Temp Pulse Resp BP BP BP Pulse Ox 07/17/16 08:00 95 18 07/17/16 07:56 98.9 F 95 18 141/75 95 07/17/16 04:00 97.5 F L 94 18 125/77 96 07/17/16 00:00 98.1 F 95 18 143/92 97 07/16/16 20:00 97.6 F 58 L 18 175/94 99 07/16/16 16:00 67 18 07/16/16 15:44 97.6 F 67 18 110/67 95 07/16/16 12:00 97.8 F 68 16 122/81 95 07/16/16 11:30 97.6 F 64 18 124/64 94 L 07/16/16 10:39 119/74 126/67 07/16/16 10:18 86 18 Pulse Ox Pulse Ox 07/17/16 08:00 07/17/16 07:56 07/17/16 04:00 07/17/16 00:00 07/16/16 20:00 07/16/16 16:00 07/16/16 15:44 07/16/16 12:00 07/16/16 11:30 07/16/16 10:39 96 95 07/16/16 10:18 Intake and Output 07/16/16 07/17/16 07/17/16 22:59 06:59 14:59 Intake Total 360 120 Output Total 1425 Balance 360 -1425 120 Intake: Oral 360 120 Output: Urine 1425 Other: Voiding Method Urinal Urinal Urinal # Voids 1 1 Weight 76 kg 76.2 kg Results - Lab Results Most recent lab results Calcium 9.8 mg/dL (8.4-10.2) 07/17/16 06:07 Magnesium 2.5 mg/dL (1.6-2.3) H 07/15/16 12:00 07/17/16 06:07 07/17/16 06:07 Assessment and Plan Plan: Assessment: #1. Nonoliguric acute kidney injury secondary to ATN secondary to hemodynamic instability/NSTEMI. Renal function stable with creatinine at 1.9 today. Urinalysis noted to be benign. #2. Non-ST elevated myocardial infarction. #3. Systolic CHF with ejection fraction of 45-50%. #4. Chronic kidney disease stage III secondary to cardiorenal syndrome with baseline creatinine near 1.4-1.6. Plan: Continue normal saline to be run at 50 mL an hour. Check renal ultrasound. Patient is cleared for cardiac catheterization from nephrology standpoint. I did discuss the risk of developing contrast-induced nephropathy especially when he has underlying chronic kidney disease. He understands. If he is to go for cardiac catheterization, I will increase the fluids to 75 mL an hour. Thank you for the consultation. I will continue to follow the patient with you during his hospital stay.
[2016-07-17] MEDS: METOPROLOL TARTRATE 12.5 MG TAB PO SCH ×2 (12:00→20:21)
[2016-07-17] MEDS: SODIUM CHLORIDE 0.9% 1,000 ML IV SCH (12:00)
--- NOTE | 2016-07-17 12:35 | P.PN ---
Subjective Date of service 07/16/2016. Progress note being dictated for Dr. Mackey. Interval history: This is an 86-year-old gentleman admitted with chest pain, possible acute non-STEMI, acute on chronic renal failure and multiple other medical issues. Evaluated by cardiology and cardiac catheterization being discussed. EF 45-50%. Renal function continues to slowly worsen. Afebrile, preliminary cultures negative Denies any chest pain, palpitations or increased shortness of breath. Objective - Vital Signs Vital signs: Vital Signs Temp 97.6 F 07/16/16 15:44 Pulse 67 07/16/16 16:00 Resp 18 07/16/16 16:00 BP 110/67 07/16/16 15:44 Pulse Ox 95 07/16/16 15:44 Intake & Output 07/16/16 07/16/16 07/17/16 06:59 18:59 06:59 Intake Total 500 600 Output Total 825 Balance -325 600 Weight 76 kg 76 kg Intake: Oral 500 600 Output: Urine 825 Other: Voiding Method Urinal Urinal # Voids 1 1 # Bowel Movements 1 - Exam PHYSICAL EXAM: VITAL SIGNS: As above GENERAL: [Sitting up in bed, no acute distress] HEENT: [Pupils equal conjunctiva normal.] NECK: [Supple, no JVD] RESPIRATORY EFFORT:[Normal] LUNGS: [Diminished, no crackles wheezes or rhonchi] CARDIOVASCULAR[regular S1 and S2, no murmurs rubs or gallops, no edema] GI: [Abdomen soft, nontender, positive bowel sounds.] PSYCH: [Alert and oriented -3, mood and affect normal.] NEURO: No focal deficits, moves all 4 extremities, strength and sensation intact. - Labs CBC & Chem 7: 07/17/16 06:07 07/17/16 06:07 Labs: Abnormal Lab Results - Last 24 Hours (Table) 07/16/16 07/16/16 07/16/16 Range/Units 00:02 03:00 05:44 WBC (3.8-10.6) k/uL Plt Count (150-450) k/uL Neutrophils # (1.3-7.7) k/uL BUN 50 H (9-20) mg/dL Creatinine 2.13 H (0.66-1.25) mg/dL Glucose 122 H (74-99) mg/dL Troponin I 0.057 H* (0.000-0.034) ng/mL Urine Blood Moderate H (Negative) Urine Bacteria Rare H (None) /hpf 07/16/16 Range/Units 05:44 WBC 11.1 H (3.8-10.6) k/uL Plt Count 134 L (150-450) k/uL Neutrophils # 8.6 H (1.3-7.7) k/uL BUN (9-20) mg/dL Creatinine (0.66-1.25) mg/dL Glucose (74-99) mg/dL Troponin I (0.000-0.034) ng/mL Urine Blood (Negative) Urine Bacteria (None) /hpf Microbiology - Last 24 Hours (Table) 07/15/16 14:40 Blood Culture - Preliminary Blood No Growth after 24 hours 07/16/16 03:00 Urine Culture - Preliminary Urine,Voided Assessment and Plan Plan: 1. Chest pain, possible acute non-STEMI. 2. [Persistent chronic atrial fibrillation, controlled ventricular rate]. 3. [Short-term nonsustained V. tach]. 4. [Acute on chronic kidney disease stage III]. 5. [Increased total bili]. 6. [Leukocytosis, suspect reactive]. 7. [Fever for evaluation, possibly viral syndrome, subsided, preliminary cultures negative,]. 8. Left basilar atelectasis 9. CAD, history of IL and previous stent 10. Hyperlipidemia 11. DJD 12. Abdominal aortic aneurysm 13. History of motion sickness Plan: Continue on current medication regime ,monitoring and symptomatic treatment. Gentle IV fluid hydration initiated for her worsening renal function. Close monitoring of renal function and electrolytes with repeat labs ordered for a.m. As cardiac catheterization being discussed, nephrology consult initiated. Updated and patient at bedside on plan of care. Patient's awaiting to further talk to Dr. Miller, who is her 's OP cane piler, tomorrow regarding options and recommendations. Further recommendations to follow. The impression and plan of care has been dictated as directed. : I performed a H&P examination of this patient and discussed the same with the dictator. I agree with the dictator's note. Any additional findings/opinions/ etc. will be noted.
--- NOTE | 2016-07-17 12:59 | US ---
EXAMINATION TYPE: US kidneys/renal and bladder DATE OF EXAM: 07/17/2016 12:38 PM COMPARISON: Renal ultrasound May 22, 2016. CLINICAL HISTORY: mine. EXAM MEASUREMENTS: Right Kidney: 9.5 x 5.0 x 4.4 cm Left Kidney: 9.0 x 8.9 x 4.7 cm Right Kidney: 2 cysts noted 1.) 1.7 x 1.5 x 1.4cm, 2.) 0.8 x 0.9 x 0.7cm Left Kidney: probable scarring as seen previously Bladder: not fully distended There is no evidence for hydronephrosis at this point in time. Some cortical thinning in both kidneys is redemonstrated. There are 2 simple appearing cysts in right kidney redemonstrated. No worrisome n ew lesions are seen. The urinary bladder is suboptimally evaluated as is not greatly distended. No w orrisome intraluminal mass is seen. Bilateral ureteral jets are seen. IMPRESSION: No hydronephrosis is evident bilaterally. No significant change from prior study is seen.
--- NOTE | 2016-07-17 14:22 | PN ---
Consultation requested by Dr. Prado. Patient is well known to me and follows with me for a long time. Patient had an angioplasty stenting of the right coronary done in 2000. Since that time patient has been doing very well. Patient is having some atypical chest pains and some dizzy spells which appears to be orthostatic related. May need to consider putting him on some medications for orthostasis. The patient admitted to the hospital with chest pains but troponins borderline with a creatinine of 1.9 and 20.0. In view of atypical not classical anginal symptoms and elevated creatinine, will do a Lexiscan. If the Lexiscan is abnormal, will consider cardiac catheterization and if Lexiscan is normal, will continue medical therapy along with nitroglycerin sublingually p.r.n. for chest pain. Chronic atrial fibrillation on anticoagulation. Hypertension, hyperlipidemia. Vital signs are stable. Patient does have some mild orthostatic hypotension, drop of approximately 20 mmHg. Dropped from 143 to 122. Looking into medications we may end up adding. Patient also has Parkinson's disease, some of the orthostatics may be related to his Parkinson's medications. Will add a small dose of Florinef 0.1 mg p.o. daily. VITAL SIGNS: Blood pressure 125/77 with a pulse rate of 94 irregularly irregular, respirations of 18. HEAD: Normocephalic. HEENT unremarkable. Neck is supple. No thyroid enlargement. CARDIAC: Regular rate and rhythm. S1 and S2. Lungs are clinically to auscultation. ABDOMEN: Soft, no organomegaly. ASSESSMENT: 1. Borderline troponin elevations with recurrent chest pains, but atypical. 2. Atherosclerotic heart disease, status post angioplasty and stenting of the right coronary artery done in 2000. 3. Hypertension. 4. Hyperlipidemia. 5. Parkinson disease. 6. Orthostatic changes related to probably Parkinson's disease. Will add some Florinef 0.1 mg p.o. daily and schedule him for a Lexiscan. If the Lexiscan is abnormal, will consider cardiac catheterization. If the Lexiscan is normal, will continue medical therapy with nitroglycerin. If the nitroglycerin relieves his symptoms consistently we will consider cardiac catheterization in spite of elevated creatinine and BUN.
[2016-07-17] MEDS ORDERED: LEVOFLOXACIN 750MG-D5W PMX 750 MG in DEXTROSE/WATER 1 150ML.BAG IVPB SCH (16:00)
[2016-07-17] MEDS ORDERED: ATORVASTATIN 40 MG TAB PO SCH (21:00)
[2016-07-18] MEDS ORDERED: LORazepam 2 MG/ML SYRINGE IV ONE (02:40)
[2016-07-18] MEDS ORDERED: REGADENOSON 0.4 MG/5 ML SYRINGE IV ONE (05:00)
[2016-07-18 06:56] LABS: Basophils % (A) 0 %; CH 31.2; CHCM 33.4; Eosinophils # (A) 0.4 k/uL (0-0.7); Eosinophils % (A) 4 %; HDW 2.37; HGB 13.1 gm/dL (13.0-17.5); Luc # (Auto) 0.23; Luc % (Auto) 3; Lymphocytes # (A) 1.4 k/uL (1.0-4.8); Lymphocytes % (A) 16 %; MCH 30.6 pg (25.0-35.0); MCHC 32.7 g/dL (31.0-37.0); MCV 93.7 fL (80.0-100.0); Monocytes # (A) 0.5 k/uL (0-1.0); Monocytes % (A) 6 %; Neutrophils # (A) 6.5 k/uL (1.3-7.7); Neutrophils % (A) 72 %; RBC 4.27 m/uL (4.30-5.90); RDW 14.1 % (11.5-15.5); WBC (Perox) 9.11
[2016-07-18 07:05] LABS: Calcium 9.5 mg/dL (8.4-10.2); Potassium 4.9 mmol/L (3.5-5.1)
[2016-07-18 07:57] VITALS: RESP 18
--- NOTE | 2016-07-18 08:17 | P.PN ---
Subjective Patient is seen in follow-up for acute kidney injury on chronic kidney disease. Patient has chronic kidney disease stage III secondary to cardiorenal syndrome with baseline creatinine near 1.4-1.6. He was elevated at 2.1 on admission and has been gradually improving. It is down to 1.72 today. Fluids were discontinued last night as he was quite anxious and there was concern that he will pull out his IV. His appetite has been good. Denies any chest pain or shortness of breath. He is currently admitted for non-ST elevated myocardial infarction and is scheduled to undergo stress test today. Vital signs are stable. General: The patient appeared well nourished and normally developed. HEENT: Head exam is unremarkable. Neck is without jugular venous distension. LUNGS: Lungs are clear to auscultation and percussion. Breath sounds decreased. HEART: Rate and Rhythm are regular. First and second heart sounds normal. No murmurs, rubs or gallops. ABDOMEN: Abdominal exam reveals normal bowel sounds. Non-tender and non- distended. No evidence of peritonitis. EXTREMITITES: No clubbing, cyanosis, or edema. Objective - Vital Signs Vital signs: Vital Signs Temp 97.1 F L 07/18/16 07:55 Pulse 91 07/18/16 07:55 Resp 18 07/18/16 07:55 BP 156/82 07/18/16 07:55 Pulse Ox 98 07/18/16 07:55 Intake & Output 07/17/16 07/18/16 07/18/16 18:59 06:59 18:59 Intake Total 660 20 Output Total 125 Balance 535 20 Intake: IV 20 Sodium Chloride 0.9% 1, 20 000 ml @ 20 mls/hr IV . Q24H REPLACED BY [facility] Rx#:[id number] Oral 660 Output: Urine 125 Other: Voiding Method Urinal # Voids 1 1 - Labs CBC & Chem 7: 07/18/16 06:24 07/18/16 06:24 Labs: Abnormal Lab Results - Last 24 Hours (Table) 07/18/16 07/18/16 Range/Units 06:24 06:24 RBC 4.27 L (4.30-5.90) m/uL Chloride 109 H (98-107) mmol/L BUN 44 H (9-20) mg/dL Creatinine 1.72 H (0.66-1.25) mg/dL Glucose 105 H (74-99) mg/dL Microbiology - Last 24 Hours (Table) 07/15/16 14:40 Blood Culture - Preliminary Blood No Growth after 48 hours 07/16/16 03:00 Urine Culture - Final Urine,Voided Assessment and Plan Plan: Assessment: #1. Nonoliguric acute kidney injury secondary to ATN secondary to hemodynamic instability/NSTEMI. Renal function improving with creatinine down to 1.7 to today. Urinalysis noted to be benign. No hydronephrosis noted on renal ultrasound. #2. Non-ST elevated myocardial infarction. #3. Systolic CHF with ejection fraction of 45-50%. #4. Chronic kidney disease stage III secondary to cardiorenal syndrome with baseline creatinine near 1.4-1.6. Plan: Patient is cleared for cardiac catheterization from nephrology standpoint. I did discuss the risk of developing contrast-induced nephropathy especially when he has underlying chronic kidney disease. Patient and the family understand. If he is to go for cardiac catheterization, I will start normal saline to be run at 75 mL an hour and continue for at least 12 hours post cardiac catheterization. Encourage oral intake. Continue to monitor renal function and urine output. Scheduled for stress test today.
[2016-07-18] MEDS: METOPROLOL TARTRATE 12.5 MG TAB PO SCH (08:28)
[2016-07-18] MEDS: APIXABAN 2.5 MG TABLET PO SCH (08:30)
[2016-07-18] MEDS: CARBIDOPA-LEVODOPA ER 25-100MG 1 EACH TABLET.ER PO SCH ×2 (08:30→12:10)
--- NOTE | 2016-07-18 08:48 | PN ---
DATE OF SERVICE: 07/17/2016 This 86-year-old gentleman who was admitted with chest pain, possible acute non-ST elevation myocardial infarction is scheduled for stress test tomorrow by Cardiology. No fever. No cough. Nephrology consultation underway. PHYSICAL EXAMINATION: Alert and oriented x3. Pulse is 92, blood pressure 140/66, respirations 16, temperature 98 degrees, no orthostatic changes. Pulse ox 95% in room air. HEENT: Conjunctivae normal. NECK: No jugular venous distention. CARDIOVASCULAR: S1 and S2, muffled. RESPIRATORY: Breath sounds diminished at the bases. No rhonchi, no crackles. ABDOMEN: Soft, nontender. LEGS: No edema, no swelling. NERVOUS SYSTEM: No focal deficits. LABS: CBC within normal limits. Creatinine is 1.90. ASSESSMENT: 1. Chest pain, possible acute non-ST elevation myocardial infarction. 2. Persistent chronic atrial fibrillation with controlled ventricular rate. 3. Nonsustained ventricular tachycardia. 4. Acute on chronic kidney disease stage III. 5. Increased total bilirubin. 6. Leukocytosis, possibly reactive. 7. Fever, possibly viral syndrome, subsided. Cultures negative. 8. Left basilar atelectasis. 9. Coronary artery disease, history of myocardial infarction on previous stent. 10. Hyperlipidemia. 11. Degenerative joint disease. 12. Abdominal aortic aneurysm history. 13. History of motion sickness. 14. FULL CODE. RECOMMENDATIONS AND DISCUSSION: In this 86-year-old gentleman who presented with multiple complex medical issues, we will monitor the patient closely. Follow closely with Cardiology, stress test. Closely follow with Nephrology. Guarded prognosis. Further recommendations to follow.
--- NOTE | 2016-07-18 08:52 | P.PN ---
Subjective Date of service 07/17/2016. Progress note being dictated for Dr. Mackey. Interval history: This is an 86-year-old gentleman admitted with chest pain, possible acute non-STEMI, acute on chronic renal failure and multiple other medical issues. Scheduled for stress test today. Yesterday gentle IV fluid hydration initiated for her worsening renal function with improvement noted this morning, creatinine 1.9. Evaluated by nephrology, renal ultrasound ordered , IV fluids increased. Afebrile, preliminary cultures negative Denies any chest pain, palpitations or increased shortness of breath. Objective - Vital Signs Vital signs: Vital Signs Temp 98 F 07/17/16 15:28 Pulse 92 07/17/16 15:28 Resp 18 07/17/16 15:28 BP 144/68 07/17/16 15:28 Pulse Ox 95 07/17/16 15:28 Intake & Output 07/16/16 07/17/16 07/17/16 18:59 06:59 18:59 Intake Total 600 300 Output Total 1425 125 Balance 600 -1425 175 Weight 76 kg 76.2 kg Intake: Oral 600 300 Output: Urine 1425 125 Other: Voiding Method Urinal Urinal Urinal # Voids 1 1 1 - Exam PHYSICAL EXAM: VITAL SIGNS: As above GENERAL: [Sitting up in bed, no acute distress] HEENT: [Pupils equal conjunctiva normal.] NECK: [Supple, no JVD] RESPIRATORY EFFORT:[Normal] LUNGS: Essentially clear, bilateral bases diminished,, no crackles wheezes or rhonchi] CARDIOVASCULAR[regular S1 and S2, no murmurs rubs or gallops, no edema] GI: [Abdomen soft, nontender, positive bowel sounds. No organomegaly.] PSYCH: [Alert and oriented -3, mood and affect normal.] NEURO: No focal deficits, moves all 4 extremities, strength and sensation intact. - Labs CBC & Chem 7: 07/18/16 06:24 07/18/16 06:24 Labs: Abnormal Lab Results - Last 24 Hours (Table) 07/17/16 Range/Units 06:07 BUN 49 H (9-20) mg/dL Creatinine 1.90 H (0.66-1.25) mg/dL Glucose 124 H (74-99) mg/dL Microbiology - Last 24 Hours (Table) 07/15/16 14:40 Blood Culture - Preliminary Blood No Growth after 48 hours 07/16/16 03:00 Urine Culture - Final Urine,Voided Assessment and Plan Plan: 1. Chest pain, possible acute non-STEMI. 2. [Persistent chronic atrial fibrillation, controlled ventricular rate]. 3. [Short-term nonsustained V. tach]. 4. [Acute on chronic kidney disease stage III, acute secondary to ATN, related to possible NSTEMI, chronic secondary to cardiorenal syndrome.]. 5. [Increased total bili]. 6. [Leukocytosis, suspect reactive]. 7. [Fever for evaluation, possibly viral syndrome, subsided, preliminary cultures negative,]. 8. Left basilar atelectasis 9. CAD, history of [place] and previous stent of RCA in 2000 10. Hyperlipidemia 11. DJD 12. Abdominal aortic aneurysm 13. History of motion sickness Plan: Continue on current medication regime ,monitoring and symptomatic treatment. Continue with IV fluid hydration. Close monitoring of renal function and electrolytes with repeat labs ordered for a.m. awaiting stress test. Follow closely with both cardiology and nephrology. Further recommendations to follow The impression and plan of care has been dictated as directed. : I performed a H&P examination of this patient and discussed the same with the dictator. I agree with the dictator's note. Any additional findings/opinions/ etc. will be noted.
[2016-07-18] MEDS ORDERED: ASPIRIN 81 MG CHEW PO SCH (09:00)
[2016-07-18] MEDS ORDERED: AMINOPHYLLINE 500 MG/20 ML VIAL IV PRN (09:00)
[2016-07-18] MEDS ORDERED: FLUDROCORTISONE 0.1 MG TAB PO SCH (09:00)
--- NOTE | 2016-07-18 11:52 | NM ---
EXAMINATION TYPE: NM stress Lexiscan cardiolite DATE OF EXAM: 07/18/2016 11:45 AM COMPARISON: NONE HISTORY: Chest pain TECHNIQUE: After the intravenous administration of 9.71 mCi Tc 99m Sestamibi - Cardiolite resting SP ECT images acquired 45 minutes post injection. The patient received 0.4mg Lexiscan, 26.9 mCi Tc 99m Sestamibi - Stress images obtained [address] injection FINDINGS: Review of stress and rest SPECT images demonstrates no distinct perfusion abnormality. Gated analysi s shows decreased wall motion with an estimated left ventricular ejection fraction of 40 %. IMPRESSION: 1. GLOBAL HYPOKINESIA. 2. I DO NOT SEE CONVINCING EVIDENCE OF INDUCIBLE ISCHEMIC CHANGE AT THIS TIME.
[2016-07-18] MEDS: CHOLECALCIFEROL 1,000 UNIT TAB PO SCH (12:08)
[2016-07-18] MEDS: SODIUM CHLORIDE 0.9% 1,000 ML IV SCH (12:08)
--- NOTE | 2016-07-18 12:20 | P.PN ---
Subjective Principal diagnosis: Non-STEMI This is an 86-year-old gentleman with history of coronary artery disease and prior angioplasty, history of hypertension, hyperlipidemia, paroxysmal atrial fibrillation who presented to the hospital with non-Q-wave myocardial infarction. He was seen in consultation by Dr. Calderon and recommendation was given to maximize medical therapy. Echocardiogram with Doppler study was performed which revealed an ejection fraction of 45-50%. Basal inferior septal wall was hypokinetic. Patient underwent a Lexiscan stress test today which was negative for reversible ischemia.BUN 44 today, creatinine 1.7, potassium 4.9. Objective - Vital Signs Vital signs: Vital Signs Temp 98.2 F 07/18/16 08:00 Pulse 91 07/18/16 08:00 Resp 18 07/18/16 09:00 BP 156/82 07/18/16 08:00 Pulse Ox 95 07/18/16 08:00 Intake & Output 07/17/16 07/18/16 07/18/16 18:59 06:59 18:59 Intake Total 660 20 120 Output Total 125 125 Balance 535 20 -5 Weight 76.2 kg 76.2 kg Intake: IV 20 20 Sodium Chloride 0.9% 1, 20 20 000 ml @ 20 mls/hr IV . Q24H [facility] Rx#:[id number] Oral 660 100 Output: Urine 125 125 Other: Voiding Method Urinal Urinal # Voids 1 1 1 - Exam PHYSICAL EXAMINATION: HEENT: Head is atraumatic, normocephalic. Pupils equal, round. Neck is supple. There is no elevated jugular venous pressure. HEART EXAMINATION: R S1 and S2 1 systolic murmur is heard. CHEST EXAMINATION: Lungs are clear to auscultation and precussion. No chest wall tenderness is noted on palpation or with deep breathing. ABDOMEN: Soft, nontender. Bowel sounds are heard. No organomegaly noted. EXTREMITIES: 1+ peripheral pulses with no evidence of peripheral edema and no calf tenderness noted. NEUROLOGIC patient is awake, alert and oriented -2. . - Labs CBC & Chem 7: 07/18/16 06:24 07/18/16 06:24 Labs: Abnormal Lab Results - Last 24 Hours (Table) 07/18/16 07/18/16 Range/Units 06:24 06:24 RBC 4.27 L (4.30-5.90) m/uL Chloride 109 H (98-107) mmol/L BUN 44 H (9-20) mg/dL Creatinine 1.72 H (0.66-1.25) mg/dL Glucose 105 H (74-99) mg/dL Microbiology - Last 24 Hours (Table) 07/15/16 14:40 Blood Culture - Preliminary Blood No Growth after 48 hours 07/16/16 03:00 Urine Culture - Final Urine,Voided Assessment and Plan (1) NSTEMI (non-ST elevated myocardial infarction) Status: Acute (2) Chronic a-fib Status: Acute (3) CAD (coronary artery disease) Status: Acute (4) HTN (hypertension) Status: Acute (5) Hyperlipemia Status: Acute (6) Parkinson disease Status: Acute Plan: Cardiology's perspective , we will increase metoprolol to 25 mg one tablet by mouth twice a day. Patient is not currently on an MARY inhibitor because of elevated potassium level. We will reevaluate this as an outpatient. From our perspective he may be able to be discharged home today to follow-up with Dr. Miller in the office post discharge. DNP note has been reviewed, I agree with a documented findings and plan of care. Patient was seen and examined.
[2016-07-18 12:38] VITALS: BP 132/79; PULSE 80; TEMP 96.2
--- NOTE | 2016-07-18 13:16 | EST ---
DATE OF SERVICE: 07/18/16. AGE: 86Y SEX: M HT: 66" WT: 167 lbs. Protocol Hernandez: Other: X Stage: Dur. of Exercise: *Heart Rate Blood Pressure *Rest: 83 Rest: 120/81 * *Max. Achieved: 118 Maximum BP: 148/( 8)5% PMHR: 116 100% PMHR: 136 *METS: INDICATIONS: MEDICATIONS: Baseline rhythm is atrial fibrillation, rate of 83, occasional PVCs, nonspecific ST-T wave changes. Baseline blood pressure 120/81 mmHg. The patient received injection of Lexiscan. Electrocardiograph monitoring revealed no evidence of diagnostic ischemic ST deviation. Cardiolite was injected per protocol. CONCLUSION: 1. Nondiagnostic electrocardiograph stress testing. 2. Nuclear images will be reported separately.
--- NOTE | 2016-07-19 13:07 | DS ---
DATE OF ADMISSION: 07/15/2016 DATE OF DISCHARGE: 07/18/2016 FINAL DIAGNOSES: 1. Chest pain, possible unstable angina. 2. Troponin 0.05, indeterminate. 3. Stress test showing global hypokinesia but no convincing evidence of inducible ischemic changes. 4. Persistent chronic atrial fibrillation controlled ventricular rate. 5. nonsustained ventricular tachycardia. 6. Acute on chronic kidney disease stage III possibly secondary to acute tubular necrosis related to possible cardiorenal syndrome. 7. Increased total bilirubin. 8. Leukocytosis suspected reactive. 9. Fever, possible acute viral syndrome subsided, culture is negative. 10. Left basilar atelectasis. 11. Coronary artery disease. 12. History of myocardial infarction. 13. Previous stenting of the RCA. 14. Hyperlipidemia. 15. History of degenerative joint disease. 16. History of abdominal aortic aneurysm. 17. History of motion sickness. DISCHARGE DISPOSITION: The patient will be discharged in stable condition with guarded prognosis. Total time taken is 35 minutes. Discharge cleared by cardiology. HISTORY OF PRESENT ILLNESS: This 86-year-old gentleman admitted to the hospital with multiple complex medical issues, the patient was treated conservatively with cardiology and nephrology. The patient had a stress test, which showed no inducible ischemia otherwise was treated medically. The patient improved significantly. Please note the patient has been followed by Dr. Rusty Lara in the outpatient setting. On exam, vitals are stable. CARDIOVASCULAR SYSTEM: S1, S2 muffled. ABDOMEN: Soft. CENTRAL NERVOUS SYSTEM: No focal deficits. Creatinine stabilized at 1.72. Troponins indeterminate as mentioned earlier. HOME was negative. Cultures were also negative. White count improved to 9. The patient is being discharged in stable condition with the following advice and medications: 1. Diet is cardiac. 2. Activity limited until follow. 3. Follow-up with Dr. Rusty Lara in 2 to 3 days. 4. Follow with Dr. James Samuels as advised. 5. Follow-up with Dr. Painter as advised. 6. CBC, BMP as an outpatient. 7. Continued follow-up. The medications on which the patient is being sent home includes: 1. Carbidopa/L-dopa 25/100 one p.o. b.i.d. 2. Vitamin D3 1000 daily. 3. Aspirin 81 mg daily. 4. Eliquis 2.5 mg b.i.d. 5. Nitrostat. 6. Lopressor 25 mg b.i.d. 7. Levaquin 500 mg daily. 8. Florinef 0.05 mg p.o. daily. 9. Lipitor 40 mg q.h.s. Once again, again, the patient will be discharged in a stable condition with guarded prognosis. MTDD
== END 2016-07-18 14:18 | disposition home or self-care (01) | DRG 302 ==
LOC: EC 10:51 → 6SEL 14:05
PROVIDERS: ADMIT Internal Medicine; ATTEND Internal Medicine
DX: I25.110 Atherosclerotic heart disease of native coronary artery with unstable angina pectoris (principal); N17.0 Acute kidney failure with tubular necrosis; I47.2 Ventricular tachycardia; I13.0 Hypertensive heart and chronic kidney disease with heart failure and stage 1 through stage 4 chronic kidney disease, or unspecified chronic kidney disease; I48.1 Persistent atrial fibrillation; I50.42 Chronic combined systolic (congestive) and diastolic (congestive) heart failure; J98.11 Atelectasis; G20 Parkinson's disease; E78.5 Hyperlipidemia, unspecified; Z95.5 Presence of coronary angioplasty implant and graft; I95.1 Orthostatic hypotension; E78.00 Pure hypercholesterolemia, unspecified; N18.3 Chronic kidney disease, stage 3 (moderate); I25.2 Old myocardial infarction; M19.91 Primary osteoarthritis, unspecified site; Z86.79 Personal history of other diseases of the circulatory system; Z87.01 Personal history of pneumonia (recurrent); Z79.01 Long term (current) use of anticoagulants; Z79.82 Long term (current) use of aspirin; Z79.899 Other long term (current) drug therapy
CPT/HCPCS: 36415; 71020; 76770; 78452; 80048; 80053; 80061; 81001; 82550; 82553; 82607; 83605; 83735; 83880; 84443; 84484; 85025; 85610; 85652; 85730; 86038; 86618; 86780; 87040; 87086; 87502; 93005; 93017; 93306; 99291

== ENCOUNTER → 2016-08-13 | Outpatient (CLI) | payer MEDICARE, OTHER ==
[2016-08-13 10:29] LABS: CHCM 33.7; HCT 42.7 % (39.0-53.0); HGB 14.4 gm/dL (13.0-17.5); MCH 31.2 pg (25.0-35.0); MCHC 33.8 g/dL (31.0-37.0); MCV 92.3 fL (80.0-100.0); Mean Platelet Volume 7.2; RBC 4.63 m/uL (4.30-5.90); RDW 14.5 % (11.5-15.5)
[2016-08-13 10:36] LABS: Appearance,Urine Clear (Clear); Bilirubin,Urine Negative (Negative); Glucose,Urine (UA) Negative (Negative); Ketones,Urine Negative (Negative); Leukocyte Esterase,Urine Negative (Negative); Nitrite,Urine Negative (Negative); Particle Count 755; Protein,Urine Negative (Negative); RBC,Urine 17 /hpf (0-5); Specific Gravity,Urine 1.008 (1.001-1.035); UA Billing (MACRO vs. MICRO) MICRO; Urobilinogen,Urine <2.0 mg/dL (<2.0)
[2016-08-13 13:55] LABS: Calcium 9.8 mg/dL (8.4-10.2); Magnesium 2.1 mg/dL (1.6-2.3); Phosphorous 4.5 mg/dL (2.5-4.5); Potassium 5.2 mmol/L (3.5-5.1); Uric Acid 8.5 mg/dL (3.5-8.5)
== END | disposition home or self-care (01) ==
LOC: LABWHC1 09:43
PROVIDERS: ATTEND Nurse Practitioner Family
DX: N17.9 Acute kidney failure, unspecified (principal); I50.9 Heart failure, unspecified; D64.9 Anemia, unspecified; N39.0 Urinary tract infection, site not specified; M10.9 Gout, unspecified
CPT/HCPCS: 36415; 80048; 81001; 82728; 83540; 83550; 83735; 84100; 84550; 85027

== ENCOUNTER → 2016-10-15 | Outpatient (CLI) | payer MEDICARE, OTHER ==
[2016-10-15 08:43] LABS: CH 31.7; CHCM 33.2; HCT 43.1 % (39.0-53.0); HDW 2.44; MCH 31.2 pg (25.0-35.0); MCHC 32.5 g/dL (31.0-37.0); MCV 95.8 fL (80.0-100.0); RDW 14.3 % (11.5-15.5); WBC 8.8 k/uL (3.8-10.6)
[2016-10-15 08:44] LABS: Amorphous Sediment,Urine Rare /hpf; Appearance,Urine Clear (Clear); Bilirubin,Urine Negative (Negative); Glucose,Urine (UA) Negative (Negative); Ketones,Urine Negative (Negative); Leukocyte Esterase,Urine Negative (Negative); Mucus,Urine Rare /hpf; Nitrite,Urine Negative (Negative); PH, Urine 6.5 (5.0-8.0); Particle Count 1097; Protein,Urine Negative (Negative); RBC,Urine 17 /hpf (0-5); Specific Gravity,Urine 1.012 (1.001-1.035); UA Billing (MACRO vs. MICRO) MICRO; Urobilinogen,Urine <2.0 mg/dL (<2.0); WBC,Urine 1 /hpf (0-5)
[2016-10-15 10:55] LABS: Calcium 9.5 mg/dL (8.4-10.2); Magnesium 2.1 mg/dL (1.6-2.3); Phosphorous 3.5 mg/dL (2.5-4.5); Potassium 4.9 mmol/L (3.5-5.1); Uric Acid 10.6 mg/dL (3.5-8.5)
[2016-10-15 11:05] LABS: % Iron Saturation 24.2 % (20-50)
== END | disposition home or self-care (01) ==
LOC: LABWHC1 08:18
PROVIDERS: ATTEND Nurse Practitioner Family
DX: N17.9 Acute kidney failure, unspecified (principal); I50.9 Heart failure, unspecified; D64.9 Anemia, unspecified; N39.0 Urinary tract infection, site not specified; M10.9 Gout, unspecified
CPT/HCPCS: 36415; 80048; 81001; 82728; 83540; 83550; 83735; 84100; 84550; 85027

== ENCOUNTER → 2017-01-28 | Outpatient (CLI) | payer MEDICARE, OTHER ==
[2017-01-28 11:16] LABS: CH 32.5; CHCM 33.2; HCT 40.2 % (39.0-53.0); HDW 2.51; HGB 12.8 gm/dL (13.0-17.5); MCH 31.4 pg (25.0-35.0); MCHC 31.9 g/dL (31.0-37.0); MCV 98.7 fL (80.0-100.0); Macrocytosis Slight; Mean Platelet Volume 8.2; RBC 4.07 m/uL (4.30-5.90); RDW 15.8 % (11.5-15.5); WBC 8.6 k/uL (3.8-10.6)
[2017-01-28 11:33] LABS: Calcium 9.4 mg/dL (8.4-10.2); Magnesium 2.5 mg/dL (1.6-2.3); Phosphorus 3.5 mg/dL (2.5-4.5); Potassium 4.4 mmol/L (3.5-5.1); Uric Acid 7.3 mg/dL (3.5-8.5)
[2017-01-28 12:19] LABS: Appearance,Urine Clear (Clear); Bilirubin,Urine Negative (Negative); Glucose,Urine (UA) Negative (Negative); Ketones,Urine Negative (Negative); Leukocyte Esterase,Urine Negative (Negative); Nitrite,Urine Negative (Negative); Particle Count 354; Protein,Urine Negative (Negative); RBC,Urine 2 /hpf (0-5); Specific Gravity,Urine 1.005 (1.001-1.035); UA Billing (MACRO vs. MICRO) MICRO; Urobilinogen,Urine <2.0 mg/dL (<2.0); WBC,Urine <1 /hpf (0-5)
[2017-01-28 15:17] LABS: Iron Saturation 24.47 (15.00-50.00)
== END | disposition home or self-care (01) ==
LOC: LABWHC1 10:36
PROVIDERS: ATTEND Nurse Practitioner Family
DX: N17.9 Acute kidney failure, unspecified (principal); N39.0 Urinary tract infection, site not specified; M10.9 Gout, unspecified; D50.9 Iron deficiency anemia, unspecified; E55.9 Vitamin D deficiency, unspecified; N25.81 Secondary hyperparathyroidism of renal origin
CPT/HCPCS: 36415; 80048; 81001; 82306; 82728; 83540; 83550; 83735; 83970; 84100; 84550; 85027

== ENCOUNTER → 2017-03-23 | Outpatient (CLI) | payer MEDICARE, BC ==
[2017-03-23 11:16] LABS: CH 31.8; CHCM 32.9; HCT 40.9 % (39.0-53.0); HGB 13.1 gm/dL (13.0-17.5); MCH 31.1 pg (25.0-35.0); MCHC 32.1 g/dL (31.0-37.0); MCV 96.9 fL (80.0-100.0); Mean Platelet Volume 7.5; RBC 4.22 m/uL (4.30-5.90); RDW 14.3 % (11.5-15.5); WBC 7.8 k/uL (3.8-10.6)
[2017-03-23 11:33] LABS: Potassium 4.4 mmol/L (3.5-5.1)
== END | disposition home or self-care (01) ==
LOC: LABPAT 10:45
PROVIDERS: ATTEND Internal Medicine Interventional Cardiology
DX: Z01.812 Encounter for preprocedural laboratory examination (principal); I25.10 Atherosclerotic heart disease of native coronary artery without angina pectoris
CPT/HCPCS: 36415; 80051; 82565; 84520; 85027

== ENCOUNTER → 2017-04-30 | Outpatient (CLI) | payer MEDICARE, OTHER ==
[2017-04-30 14:44] LABS: Appearance,Urine Clear (Clear); Bilirubin,Urine Negative (Negative); Blood,Urine Small (Negative); Color,Urine Yellow; Glucose,Urine (UA) Negative (Negative); Hyaline Casts,Urine 4 /lpf (0-2); Ketones,Urine Negative (Negative); Leukocyte Esterase,Urine Negative (Negative); Mucus,Urine Rare /hpf; Nitrite,Urine Negative (Negative); PH, Urine 6.5 (5.0-8.0); Protein,Urine Negative (Negative); RBC,Urine 15 /hpf (0-5); Specific Gravity,Urine 1.009 (1.001-1.035); WBC,Urine 1 /hpf (0-5)
[2017-04-30 14:45] LABS: Calcium 9.4 mg/dL (8.4-10.2); Magnesium 1.9 mg/dL (1.6-2.3); Phosphorus 3.5 mg/dL (2.5-4.5); Potassium 4.4 mmol/L (3.5-5.1); Uric Acid 7.1 mg/dL (3.5-8.5)
[2017-04-30 14:54] LABS: Anisocytosis Slight; Basophils % (A) 1 %; Eosinophils # (A) 0.3 k/uL (0-0.7); Eosinophils % (A) 4 %; HCT 38.2 % (39.0-53.0); HGB 11.7 gm/dL (13.0-17.5); Hypochromasia Slight; Lymphocytes # (A) 1.2 k/uL (1.0-4.8); Lymphocytes % (A) 18 %; MCH 30.9 pg (25.0-35.0); MCHC 30.5 g/dL (31.0-37.0); Macrocytosis Slight; Mean Platelet Volume 8.5; Monocytes # (A) 0.5 k/uL (0-1.0); Monocytes % (A) 8 %; Neutrophils # (A) 4.6 k/uL (1.3-7.7); Neutrophils % (A) 67 %; Platelet Count 140 k/uL (150-450); RBC 3.77 m/uL (4.30-5.90); RDW 16.3 % (11.5-15.5); WBC 6.8 k/uL (3.8-10.6)
[2017-04-30 14:57] LABS: MCV 101.3 fL (80.0-100.0)
[2017-04-30 18:49] LABS: Iron Saturation 13.2 (15.00-50.00)
[2017-04-30 18:57] LABS: Vitamin D 25 Hydroxy 33.3 ng/mL (30.0-100.0)
[2017-04-30 21:43] LABS: Parathyroid Hormone Intact 170.6 pg/mL (14.0-72.0)
== END | disposition home or self-care (01) ==
LOC: LABWHC1 13:51
PROVIDERS: ATTEND Internal Medicine Nephrology
DX: N18.3 Chronic kidney disease, stage 3 (moderate) (principal); M10.9 Gout, unspecified; D64.9 Anemia, unspecified; E55.9 Vitamin D deficiency, unspecified; E21.3 Hyperparathyroidism, unspecified; N39.0 Urinary tract infection, site not specified
CPT/HCPCS: 36415; 80048; 81001; 82306; 82728; 83540; 83550; 83735; 83970; 84100; 84550; 85025

== ENCOUNTER 2017-06-24 09:50 | Emergency (ER) | payer MEDICARE, OTHER ==
--- NOTE | 2017-06-24 10:15 | ED ---
General Adult HPI - General Chief complaint: Dental/Oral Stated complaint: Sent by PCP blood in mouth Time Seen by Provider: 06/24/17 10:03 Source: patient, family, RN notes reviewed Mode of arrival: ambulatory Limitations: no limitations - History of Present Illness Initial comments: This 86-year-old male presents emergency Department chief complaint of bleeding from his mouth. Patient states last 2 mornings woke up with blood noted coming out of his mouth and blister. He states that the first morning his woke him up and is blood all way down history. Patient states that he has no idea where this is coming from. He states that it's only coming out of his mouth though. Patient denies any trauma. Patient states he does take Xarelto though he called his ferry boat captain yesterday who advised him to hold it for the next 3- 4 days. Patient had an episode today follow-up with PCP was sent him here for evaluation. Patient does add that he has recently been receiving iron infusions he states he does not know why he is trying to physician or anemic. Patient states that his received 2 of these. Patient also states that he occasionally has difficulty swallowing food and liquids he states it feels like it stuck in his chest. He's had no prior EGD's. Patient did have a recent urinalysis which showed some hematuria. Patient states that he did notice some dark stools recently also. - Related Data Home Medications Medication Instructions Recorded Confirmed Allopurinol [Zyloprim] 100 mg PO DAILY 03/27/17 06/24/17 Hydrochlorothiazide 12.5 mg PO DAILY 03/27/17 06/24/17 Midodrine [ProAmatine] 2.5 mg PO BID 03/27/17 06/24/17 Calcitriol 0.25 mcg PO Q7D 06/24/17 06/24/17 Previous Rx's Medication Instructions Recorded Atorvastatin [Lipitor] 40 mg PO HS #30 tab 07/18/16 Fludrocortisone [Florinef] 0.05 mg PO DAILY #30 tab 07/18/16 Metoprolol Tartrate [Lopressor] 25 mg PO BID #60 tablet 07/18/16 Nitroglycerin Sl Tabs [Nitrostat] 0.4 mg SUBLINGUAL Q5M PRN #100 tab 07/18/16 Clopidogrel [Plavix] 75 mg PO DAILY #90 tab 04/01/17 Rivaroxaban [Xarelto] 15 mg PO W/SUPPER #90 tab 04/01/17 Allergies Allergy/AdvReac Type Severity Reaction Status Date / Time flecainide Allergy Swelling Verified 06/24/17 10:16 steroids Allergy Rapid Uncoded 06/11/17 11:07 Heart Rate Review of Systems ROS Statement: Those systems with pertinent positive or pertinent negative responses have been documented in the HPI. ROS Other: All systems not noted in ROS Statement are negative. 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 Low blood pressure. Does get confused @ times. Last Myocardial Infarction Date:: 2000 History of Any Multi-Drug Resistant Organisms: None Reported Past Surgical History: Heart Catheterization With Stent, Joint Replacement, Orthopedic Surgery Additional Past Surgical History / Comment(s): LEFT KNEE REPLACED, YOSELIN CATARACTS , CARDIAC STENTS X2, 3rd stent placed 03/31/2017"LT KIDNEY BX-NEG", colonoscopy. Past Anesthesia/Blood Transfusion Reactions: Motion Sickness Date of Last Stent Placement:: 2016 Past Psychological History: No Psychological Hx Reported Smoking Status: Never smoker Past Alcohol Use History: None Reported Past Drug Use History: None Reported - Past Family History Mother Additional Family Medical History / Comment(s): "HEART PROBLEMS" Father Family Medical History: Pneumonia General Exam Limitations: no limitations General appearance: alert, in no apparent distress Head exam: Present: atraumatic, normocephalic, normal inspection Eye exam: Present: normal appearance, PERRL, EOMI. Absent: scleral icterus, conjunctival injection, periorbital swelling ENT exam: Present: normal exam, normal oropharynx, mucous membranes moist, TM's normal bilaterally, normal external ear exam Neck exam: Present: normal inspection, full ROM. Absent: tenderness, meningismus, lymphadenopathy Respiratory exam: Present: normal lung sounds bilaterally. Absent: respiratory distress, wheezes, rales, rhonchi, stridor Cardiovascular Exam: Present: regular rate, normal rhythm, normal heart sounds. Absent: systolic murmur, diastolic murmur, rubs, gallop, clicks GI/Abdominal exam: Present: soft, normal bowel sounds. Absent: distended, tenderness, guarding, rebound, rigid Skin exam: Present: warm, dry, intact, normal color. Absent: rash Course Vital Signs 06/24/17 09:53 Temperature 98.1 F Pulse Rate 60 Respiratory 20 Rate Blood Pressure 126/73 O2 Sat by Pulse 98 Oximetry Medical Decision Making - Medical Decision Making 86-year-old male present emergency department for complaints of bleeding orally. His symptoms have resolved for the past 2 days after he notices it without treatment. Patient presented with no active bleeding he did have some complaints of some difficult swallowing and recent iron transfusions. Patient had full workup including lab work, CT rule out any sort of mass or areas of concern of bleeding. The CT was negative at this time. Dr. muñoz I did discuss the case with Dr. Lara wants the patient to hold his xarelto, follow-up with him in office in on-call ENT he is return for any bleeding for reevaluation. - Lab Data Result diagrams: 06/24/17 10:30 06/24/17 10:30 Lab Results 06/24/17 06/24/17 06/24/17 Range/Units 10:30 10:30 10:30 WBC 9.3 (3.8-10.6) k/uL RBC 4.05 L (4.30-5.90) m/uL Hgb 12.5 L (13.0-17.5) gm/dL Hct 37.6 L (39.0-53.0) % MCV 92.8 D (80.0-100.0) fL MCH 30.8 (25.0-35.0) pg MCHC 33.2 (31.0-37.0) g/dL RDW 14.9 (11.5-15.5) % Plt Count 128 L (150-450) k/uL Neutrophils % 74 % Lymphocytes % 13 % Monocytes % 8 % Eosinophils % 4 % Basophils % 0 % Neutrophils # 6.9 (1.3-7.7) k/uL Lymphocytes # 1.2 (1.0-4.8) k/uL Monocytes # 0.7 (0-1.0) k/uL Eosinophils # 0.4 (0-0.7) k/uL Basophils # 0.0 (0-0.2) k/uL PT (9.0-12.0) sec INR (<1.2) APTT (22.0-30.0) sec Sodium 140 (137-145) mmol/L Potassium 4.0 (3.5-5.1) mmol/L Chloride 101 (98-107) mmol/L Carbon Dioxide 29 (22-30) mmol/L Anion Gap 10 mmol/L BUN 36 H (9-20) mg/dL Creatinine 1.32 H (0.66-1.25) mg/dL Est GFR (MDRD) Af Amer >60 (>60 ml/min/1.73 sqM) Est GFR (MDRD) Non-Af 52 (>60 ml/min/1.73 sqM) Glucose 88 (74-99) mg/dL Calcium 9.5 (8.4-10.2) mg/dL Magnesium 1.8 (1.6-2.3) mg/dL Total Bilirubin 0.8 (0.2-1.3) mg/dL AST 23 (17-59) U/L ALT 34 (21-72) U/L Alkaline Phosphatase 117 (38-126) U/L Total Protein 6.8 (6.3-8.2) g/dL Albumin 3.7 (3.5-5.0) g/dL Blood Type O Positive Blood Type Recheck No Antibody Screen NEGATIVE Spec Expiration Date 06/27/2017 - 232906/24/17 Range/Units 10:30 WBC (3.8-10.6) k/uL RBC (4.30-5.90) m/uL Hgb (13.0-17.5) gm/dL Hct (39.0-53.0) % MCV (80.0-100.0) fL MCH (25.0-35.0) pg MCHC (31.0-37.0) g/dL RDW (11.5-15.5) % Plt Count (150-450) k/uL Neutrophils % % Lymphocytes % % Monocytes % % Eosinophils % % Basophils % % Neutrophils # (1.3-7.7) k/uL Lymphocytes # (1.0-4.8) k/uL Monocytes # (0-1.0) k/uL Eosinophils # (0-0.7) k/uL Basophils # (0-0.2) k/uL PT 11.6 (9.0-12.0) sec INR 1.2 H (<1.2) APTT 24.5 (22.0-30.0) sec Sodium (137-145) mmol/L Potassium (3.5-5.1) mmol/L Chloride (98-107) mmol/L Carbon Dioxide (22-30) mmol/L Anion Gap mmol/L BUN (9-20) mg/dL Creatinine (0.66-1.25) mg/dL Est GFR (MDRD) Af Amer (>60 ml/min/1.73 sqM) Est GFR (MDRD) Non-Af (>60 ml/min/1.73 sqM) Glucose (74-99) mg/dL Calcium (8.4-10.2) mg/dL Magnesium (1.6-2.3) mg/dL Total Bilirubin (0.2-1.3) mg/dL AST (17-59) U/L ALT (21-72) U/L Alkaline Phosphatase (38-126) U/L Total Protein (6.3-8.2) g/dL Albumin (3.5-5.0) g/dL Blood Type Blood Type Recheck Antibody Screen Spec Expiration Date Disposition Clinical Impression: Oral bleeding, Anemia Disposition: HOME SELF-CARE Condition: Stable Additional Instructions: Return to emergency department immediately for any bleeding. Follow-up with your PCP and ENT as directed.Please return to the Emergency Department if symptoms worsen or any other concerns. Referrals: Rusty Lara MD [Primary Care Provider] - 1-2 days Chandu Harrison DO [Doctor of Osteopathic Medicine] - 1-2 days Time of Disposition: 12:37
[2017-06-24] MEDS ORDERED: RX INFO: IV CONTRAST WAS GIVEN 1 EACH MISC MISCELLANE PRN (10:20)
[2017-06-24 11:01] LABS: INR 1.2 (<1.2); Partial Thromboplastin Time 24.5 sec (22.0-30.0); Prothrombin Time 11.6 sec (9.0-12.0)
[2017-06-24 11:04] LABS: Basophils % (A) 0 %; Eosinophils # (A) 0.4 k/uL (0-0.7); Eosinophils % (A) 4 %; HCT 37.6 % (39.0-53.0); HGB 12.5 gm/dL (13.0-17.5); Lymphocytes # (A) 1.2 k/uL (1.0-4.8); Lymphocytes % (A) 13 %; MCH 30.8 pg (25.0-35.0); MCHC 33.2 g/dL (31.0-37.0); Mean Platelet Volume 8.4; Monocytes # (A) 0.7 k/uL (0-1.0); Monocytes % (A) 8 %; Neutrophils # (A) 6.9 k/uL (1.3-7.7); Neutrophils % (A) 74 %; Platelet Count 128 k/uL (150-450); RBC 4.05 m/uL (4.30-5.90); RDW 14.9 % (11.5-15.5); WBC 9.3 k/uL (3.8-10.6)
[2017-06-24 11:05] LABS: MCV 92.8 fL (80.0-100.0)
[2017-06-24 11:07] LABS: ALT 34 U/L (21-72); AST 23 U/L (17-59); Albumin 3.7 g/dL (3.5-5.0); Alkaline Phosphatase 117 U/L (38-126); Anion Gap 10 mmol/L; Blood Urea Nitrogen 36 mg/dL (9-20); Calcium 9.5 mg/dL (8.4-10.2); Carbon Dioxide 29 mmol/L (22-30); Chloride 101 mmol/L (98-107); Glucose 88 mg/dL (74-99); Sodium 140 mmol/L (137-145); Total Bilirubin 0.8 mg/dL (0.2-1.3); Total Protein 6.8 g/dL (6.3-8.2)
--- NOTE | 2017-06-24 12:15 | CT ---
EXAMINATION TYPE: CT neck chest w con DATE OF EXAM: 06/24/2017 12:04 PM COMPARISON: NONE HISTORY: bleeding from mouth CT DLP: 1233 mGycm Automated exposure control for dose reduction was used. CONTRAST: CT scan of the neck is performed following with IV Contrast, patient injected with 80 mL of Visipaque 320. Axial images are obtained, coronal and sagittal reformatted images are reviewed. FINDINGS: Airway: No gross abnormality seen. Parotid/submandibular glands: No inflammatory change surrounding the parotid or submandibular glands . There is symmetric fatty atrophy of both the parotid and submandibular glands related to age. Carotid/Vascular Structures: Limited without the utilization of intravenous contrast, however there a ppears to be nonhemodynamically significant (less than 30% stenosis of the carotid bulbs bilaterally. Osseous Structures: Moderate multilevel degenerative changes of the cervical spine are seen with mild right neural foraminal narrowing at C2-C3, moderate right and mild left neuroforaminal narrowing at C3-C4, mild bilateral neural foraminal narrowing at C4-C5 and C5-C6, and moderate right neural forami nal narrowing at C6-C7. No significant spinal canal stenosis. Scant mucosal thickening within the rig ht maxillary sinus and hypoplastic left maxillary sinus are incidentally noted. There is mild leftwar d nasal septal deviation and a leftward nasal septal spur. Remainder the paranasal sinuses and mastoi d air cells are well aerated. Multiple dental fillings creates spray artifact and partially obscure s urrounding visualization. No distinct periapical abscess/dentigerous abscess is seen. Other: Scattered subsegmental atelectasis is seen within the lung bases. IMPRESSION: 1. No evidence for oropharyngeal mass or abscess. Airways patent. 2. Moderate multilevel degenerative changes of the cervical spine resulting in multilevel variable de grees of neural foraminal stenosis as described above.
[2017-06-24 12:49] VITALS: BP 161/94; PULSE 81; RESP 16; TEMP 96.3
== END 2017-06-24 12:49 | disposition home or self-care (01) ==
LOC: EC 09:50
DX: K06.8 Other specified disorders of gingiva and edentulous alveolar ridge (principal); D64.9 Anemia, unspecified; R13.10 Dysphagia, unspecified; I48.91 Unspecified atrial fibrillation; I25.119 Atherosclerotic heart disease of native coronary artery with unspecified angina pectoris; I25.2 Old myocardial infarction; N28.9 Disorder of kidney and ureter, unspecified; Z79.01 Long term (current) use of anticoagulants; Z79.899 Other long term (current) drug therapy; Z88.8 Allergy status to other drugs, medicaments and biological substances
CPT/HCPCS: 36415; 86900; 86901; 80053; 83735; 85025; 85610; 85730; 86850; 70491; 71260; 99284; Q9967

== ENCOUNTER → 2017-08-12 | Outpatient (CLI) | payer MEDICARE, OTHER ==
[2017-08-12 09:38] LABS: Basophils % (A) 0 %; Eosinophils # (A) 0.3 k/uL (0-0.7); Eosinophils % (A) 4 %; HCT 41.6 % (39.0-53.0); HGB 13.5 gm/dL (13.0-17.5); Lymphocytes # (A) 1.3 k/uL (1.0-4.8); Lymphocytes % (A) 17 %; MCH 31.1 pg (25.0-35.0); MCHC 32.5 g/dL (31.0-37.0); MCV 95.9 fL (80.0-100.0); Mean Platelet Volume 8.2; Monocytes # (A) 0.6 k/uL (0-1.0); Monocytes % (A) 7 %; Neutrophils # (A) 5.5 k/uL (1.3-7.7); Neutrophils % (A) 70 %; Platelet Count 145 k/uL (150-450); RBC 4.34 m/uL (4.30-5.90); WBC 7.8 k/uL (3.8-10.6)
[2017-08-12 09:43] LABS: Appearance,Urine Clear (Clear); Bilirubin,Urine Negative (Negative); Blood,Urine Moderate (Negative); Color,Urine Yellow; Glucose,Urine (UA) Negative (Negative); Hyaline Casts,Urine 24 /lpf (0-2); Ketones,Urine Negative (Negative); Leukocyte Esterase,Urine Negative (Negative); Mucus,Urine Rare /hpf; Nitrite,Urine Negative (Negative); Protein,Urine Trace (Negative); RBC,Urine 39 /hpf (0-5); Specific Gravity,Urine 1.017 (1.001-1.035); WBC,Urine <1 /hpf (0-5)
[2017-08-12 09:51] LABS: Calcium 9.4 mg/dL (8.4-10.2); Phosphorus 3.2 mg/dL (2.5-4.5); Potassium 4.3 mmol/L (3.5-5.1); Uric Acid 6.9 mg/dL (3.5-8.5)
[2017-08-12 17:49] LABS: Parathyroid Hormone Intact 100.3 pg/mL (14.0-72.0)
[2017-08-12 18:09] LABS: Iron Saturation 30.26 (15.00-50.00)
[2017-08-12 18:17] LABS: Vitamin D 25 Hydroxy 35.9 ng/mL (30.0-100.0)
== END | disposition home or self-care (01) ==
LOC: LABWHC1 08:41
PROVIDERS: ATTEND Nurse Practitioner Family
DX: N39.0 Urinary tract infection, site not specified (principal); N18.3 Chronic kidney disease, stage 3 (moderate); E21.3 Hyperparathyroidism, unspecified; D50.9 Iron deficiency anemia, unspecified; M10.9 Gout, unspecified
CPT/HCPCS: 36415; 80048; 81001; 82306; 82728; 83540; 83550; 83735; 83970; 84100; 84550; 85025

== ENCOUNTER → 2017-11-10 | Outpatient (CLI) | payer MEDICARE, OTHER ==
[2017-11-10 13:15] LABS: Basophils % (A) 1 %; Eosinophils # (A) 0.5 k/uL (0-0.7); Eosinophils % (A) 7 %; HCT 43.1 % (39.0-53.0); HGB 14.4 gm/dL (13.0-17.5); Lymphocytes # (A) 1.5 k/uL (1.0-4.8); Lymphocytes % (A) 21 %; MCHC 33.5 g/dL (31.0-37.0); MCV 95.4 fL (80.0-100.0); Mean Platelet Volume 8.1; Monocytes # (A) 0.5 k/uL (0-1.0); Monocytes % (A) 8 %; Neutrophils # (A) 4.5 k/uL (1.3-7.7); Neutrophils % (A) 63 %; Platelet Count 124 k/uL (150-450); RBC 4.51 m/uL (4.30-5.90); RDW 14.1 % (11.5-15.5); WBC 7.2 k/uL (3.8-10.6)
[2017-11-10 13:48] LABS: Calcium 9.3 mg/dL (8.4-10.2); Magnesium 1.8 mg/dL (1.6-2.3); Phosphorus 3.4 mg/dL (2.5-4.5); Potassium 3.9 mmol/L (3.5-5.1); Uric Acid 6.9 mg/dL (3.5-8.5)
[2017-11-10 14:10] LABS: Appearance,Urine Clear (Clear); Bilirubin,Urine Negative (Negative); Blood,Urine Moderate (Negative); Color,Urine Yellow; Glucose,Urine (UA) Negative (Negative); Ketones,Urine Negative (Negative); Leukocyte Esterase,Urine Negative (Negative); Mucus,Urine Rare /hpf; Nitrite,Urine Negative (Negative); PH, Urine 6.5 (5.0-8.0); Protein,Urine Negative (Negative); RBC,Urine 7 /hpf (0-5); Urobilinogen,Urine <2.0 mg/dL (<2.0); WBC,Urine 1 /hpf (0-5)
[2017-11-10 14:35] LABS: Creatinine,Urine Random 71.3 mg/dL
[2017-11-10 15:00] LABS: Collection Time,Urine 24 hrs; Total Volume 24 Hour,Urine 1500 mls (250-2400)
[2017-11-10 15:31] LABS: Total Protein 24 Hour,Urine 165 mg/24hr (42.0-225.0)
[2017-11-10 17:52] LABS: Vitamin D 25 Hydroxy 37.6 ng/mL (30.0-100.0)
[2017-11-10 17:59] LABS: Parathyroid Hormone Intact 123.7 pg/mL (14.0-72.0)
[2017-11-10 19:17] LABS: DNA Double-Stranded NEGATIVE (NEGATIVE)
[2017-11-11 13:36] LABS: C-ANCA <1:20 Titer (<1:20); P-ANCA <1:20 Titer (<1:20)
== END | disposition home or self-care (01) ==
LOC: LABWHC1 12:37
PROVIDERS: ATTEND Nurse Practitioner Family
DX: N39.0 Urinary tract infection, site not specified (principal); N18.3 Chronic kidney disease, stage 3 (moderate); M10.9 Gout, unspecified; E21.3 Hyperparathyroidism, unspecified; D50.9 Iron deficiency anemia, unspecified; R80.9 Proteinuria, unspecified
CPT/HCPCS: 36415; 80048; 81001; 81050; 82306; 82570; 82728; 83516; 83540; 83550; 83735; 83883; 83970; 84100; 84156; 84166; 84550; 85025; 86038; 86225; 86255; 86334

== ENCOUNTER → 2018-03-09 | Outpatient (CLI) | payer MEDICARE, OTHER ==
[2018-03-09 11:10] LABS: Basophils % (A) 0 %; Eosinophils # (A) 0.4 k/uL (0-0.7); Eosinophils % (A) 5 %; HCT 42.6 % (39.0-53.0); HGB 13.4 gm/dL (13.0-17.5); Lymphocytes # (A) 1.4 k/uL (1.0-4.8); Lymphocytes % (A) 16 %; MCH 31.2 pg (25.0-35.0); MCHC 31.3 g/dL (31.0-37.0); MCV 99.6 fL (80.0-100.0); Macrocytosis Slight; Mean Platelet Volume 8.3; Monocytes # (A) 0.7 k/uL (0-1.0); Monocytes % (A) 8 %; Neutrophils # (A) 5.6 k/uL (1.3-7.7); Neutrophils % (A) 68 %; Platelet Count 128 k/uL (150-450); RBC 4.28 m/uL (4.30-5.90); RDW 14.4 % (11.5-15.5); WBC 8.2 k/uL (3.8-10.6)
[2018-03-09 11:21] LABS: Appearance,Urine Clear (Clear); Bilirubin,Urine Negative (Negative); Blood,Urine Small (Negative); Color,Urine Yellow; Glucose,Urine (UA) Negative (Negative); Hyaline Casts,Urine 36 /lpf (0-2); Ketones,Urine Negative (Negative); Leukocyte Esterase,Urine Negative (Negative); Mucus,Urine Rare /hpf; Nitrite,Urine Negative (Negative); Protein,Urine Trace (Negative); RBC,Urine 19 /hpf (0-5); Specific Gravity,Urine 1.015 (1.001-1.035); Squamous Epithelial Cell,Urine <1 /hpf (0-4); WBC,Urine 1 /hpf (0-5)
[2018-03-09 17:17] LABS: Parathyroid Hormone Intact 134.7 pg/mL (14.0-72.0)
[2018-03-09 17:24] LABS: Anion Gap 7.6 mmol/L (4.00-12.00); Carbon Dioxide 27.4 mmol/L (21.6-31.8); Magnesium 2.1 mg/dL (1.5-2.4); Phosphorus 3.1 mg/dL (2.4-5.1); Potassium 4.2 mmol/L (3.5-5.5); Uric Acid 6.4 mg/dL (3.7-8.7)
[2018-03-09 18:36] LABS: Iron Saturation 31.2 (15.00-50.00)
[2018-03-09 18:45] LABS: Vitamin D 25 Hydroxy 37.4 ng/mL (30.0-100.0)
== END ==
LOC: LABWHC1 10:37
PROVIDERS: ATTEND Nurse Practitioner Family
DX: N18.3 Chronic kidney disease, stage 3 (moderate) (principal); M10.9 Gout, unspecified; E21.3 Hyperparathyroidism, unspecified; D50.9 Iron deficiency anemia, unspecified; R80.9 Proteinuria, unspecified; N39.0 Urinary tract infection, site not specified
CPT/HCPCS: 36415; 80048; 81001; 82306; 82728; 83540; 83550; 83735; 83970; 84100; 84550; 85025; 86160; 86162

== ENCOUNTER → 2018-07-07 | Outpatient (CLI) | payer MEDICARE, OTHER ==
[2018-07-07 11:28] LABS: Basophils % (A) 0 %; Eosinophils # (A) 0.3 k/uL (0-0.7); Eosinophils % (A) 4 %; HCT 40.7 % (39.0-53.0); Lymphocytes % (A) 13 %; MCH 30.9 pg (25.0-35.0); MCHC 31.9 g/dL (31.0-37.0); MCV 96.8 fL (80.0-100.0); Mean Platelet Volume 7.4; Monocytes # (A) 0.5 k/uL (0-1.0); Monocytes % (A) 6 %; Neutrophils % (A) 76 %; Platelet Count 159 k/uL (150-450); WBC 7.9 k/uL (3.8-10.6)
[2018-07-07 11:33] LABS: Appearance,Urine Clear (Clear); Bilirubin,Urine Negative (Negative); Blood,Urine Moderate (Negative); Color,Urine Yellow; Glucose,Urine (UA) Negative (Negative); Hyaline Casts,Urine 16 /lpf (0-2); Ketones,Urine Negative (Negative); Leukocyte Esterase,Urine Negative (Negative); Mucus,Urine Rare /hpf; Nitrite,Urine Negative (Negative); Protein,Urine Trace (Negative); RBC,Urine 22 /hpf (0-5); Specific Gravity,Urine 1.018 (1.001-1.035); Squamous Epithelial Cell,Urine <1 /hpf (0-4); WBC,Urine <1 /hpf (0-5)
[2018-07-07 17:31] LABS: Anion Gap 7.1 mmol/L (4.00-12.00); Calcium 9.5 mg/dL (8.7-10.3); Carbon Dioxide 31.9 mmol/L (21.6-31.8); Magnesium 1.8 mg/dL (1.5-2.4); Phosphorus 3.2 mg/dL (2.4-5.1); Potassium 3.6 mmol/L (3.5-5.5); Uric Acid 5.9 mg/dL (3.7-8.7)
[2018-07-07 18:36] LABS: Iron Saturation 22.08 (15.00-50.00)
[2018-07-07 18:40] LABS: Vitamin D 25 Hydroxy 50.8 ng/mL (30.0-100.0)
== END ==
LOC: LABWHC1 10:30
PROVIDERS: ATTEND Nurse Practitioner Family
DX: N18.3 Chronic kidney disease, stage 3 (moderate) (principal); M10.9 Gout, unspecified; E21.3 Hyperparathyroidism, unspecified; D50.9 Iron deficiency anemia, unspecified; R80.9 Proteinuria, unspecified; N39.0 Urinary tract infection, site not specified
CPT/HCPCS: 36415; 80048; 81001; 82306; 82728; 83540; 83550; 83735; 83970; 84100; 84550; 85025; 86160; 86162

== ENCOUNTER → 2018-09-24 | Outpatient (CLI) | payer MEDICARE, OTHER | END | disposition home or self-care (01) | LOC: RADECHMAIN 11:55 | PROVIDERS: ATTEND Family Medicine | DX: I48.91 Unspecified atrial fibrillation (principal); I49.3 Ventricular premature depolarization | CPT/HCPCS: 93270 ==

== ENCOUNTER → 2018-10-14 | Outpatient (CLI) | payer MEDICARE, OTHER ==
[2018-10-14 13:41] LABS: Basophils % (A) 0 %; Eosinophils # (A) 0.3 k/uL (0-0.7); Eosinophils % (A) 4 %; HCT 40.4 % (39.0-53.0); HGB 12.9 gm/dL (13.0-17.5); Lymphocytes # (A) 1.4 k/uL (1.0-4.8); Lymphocytes % (A) 16 %; MCH 30.3 pg (25.0-35.0); MCHC 31.8 g/dL (31.0-37.0); MCV 95.2 fL (80.0-100.0); Mean Platelet Volume 8.2; Monocytes # (A) 0.5 k/uL (0-1.0); Monocytes % (A) 5 %; Neutrophils # (A) 6.4 k/uL (1.3-7.7); Neutrophils % (A) 72 %; Platelet Count 170 k/uL (150-450); RBC 4.25 m/uL (4.30-5.90); RDW 15.6 % (11.5-15.5); WBC 8.8 k/uL (3.8-10.6)
[2018-10-14 13:48] LABS: Appearance,Urine Clear (Clear); Bilirubin,Urine Negative (Negative); Blood,Urine Small (Negative); Color,Urine Yellow; Glucose,Urine (UA) Negative (Negative); Hyaline Casts,Urine 19 /lpf (0-2); Ketones,Urine Negative (Negative); Leukocyte Esterase,Urine Negative (Negative); Mucus,Urine Rare /hpf; Nitrite,Urine Negative (Negative); Protein,Urine Trace (Negative); RBC,Urine 16 /hpf (0-5); Specific Gravity,Urine 1.019 (1.001-1.035); WBC,Urine <1 /hpf (0-5)
[2018-10-14 18:37] LABS: Iron Saturation 19.93 (15.00-50.00)
[2018-10-14 18:44] LABS: Vitamin D 25 Hydroxy 43.7 ng/mL (30.0-100.0)
[2018-10-14 18:54] LABS: Parathyroid Hormone Intact 74.9 pg/mL (14.0-72.0)
[2018-10-14 18:56] LABS: African American GFR (CKD) 38.6 (60.0-200.0); Albumin 3.8 g/dL (3.80-4.90); Anion Gap 9.5 mmol/L (4.00-12.00); BUN/Creat Ratio 24.44 Ratio (12.00-20.00); Calcium 9.5 mg/dL (8.7-10.3); Carbon Dioxide 29.5 mmol/L (21.6-31.8); Magnesium 1.9 mg/dL (1.5-2.4); Phosphorus 3.9 mg/dL (2.4-5.1); Potassium 4.4 mmol/L (3.5-5.5); Uric Acid 6.1 mg/dL (3.7-8.7)
[2018-10-14 19:29] LABS: Creatinine,Urine Random 122.7 mg/dL
== END | disposition home or self-care (01) ==
LOC: LABWHC1 12:47
PROVIDERS: ATTEND Internal Medicine Nephrology
DX: E21.3 Hyperparathyroidism, unspecified (principal); M10.9 Gout, unspecified; N39.0 Urinary tract infection, site not specified; N18.3 Chronic kidney disease, stage 3 (moderate); D63.1 Anemia in chronic kidney disease
CPT/HCPCS: 36415; 80048; 81001; 82040; 82306; 82570; 82728; 83540; 83550; 83735; 83970; 84100; 84156; 84550; 85025

== ENCOUNTER 2018-10-25 18:56 | Emergency (ER) | payer MEDICARE, OTHER ==
[2018-10-25 20:09] LABS: Basophils % (A) 0 %; Eosinophils # (A) 0.4 k/uL (0-0.7); Eosinophils % (A) 4 %; HCT 43.5 % (39.0-53.0); Lymphocytes # (A) 1.6 k/uL (1.0-4.8); Lymphocytes % (A) 16 %; MCH 30.7 pg (25.0-35.0); MCHC 32.3 g/dL (31.0-37.0); Mean Platelet Volume 8.2; Monocytes # (A) 0.7 k/uL (0-1.0); Monocytes % (A) 7 %; Neutrophils # (A) 7.2 k/uL (1.3-7.7); Neutrophils % (A) 72 %; Platelet Count 149 k/uL (150-450); RBC 4.58 m/uL (4.30-5.90); RDW 15.2 % (11.5-15.5); WBC 10.1 k/uL (3.8-10.6)
[2018-10-25 20:21] LABS: Calcium 9.8 mg/dL (8.4-10.2); Potassium 4.4 mmol/L (3.5-5.1)
--- NOTE | 2018-10-25 20:25 | XR ---
EXAMINATION TYPE: XR pelvis AP view DATE OF EXAM: 10/25/2018 COMPARISON: 09/22/2014 HISTORY: Fall. Pain. TECHNIQUE: Single view FINDINGS: Pelvic ring is intact. Proximal femurs and hip joints are intact. Sacroiliac joints appear normal. IMPRESSION: No acute abnormality of the pelvis.
--- NOTE | 2018-10-25 20:26 | XR ---
EXAMINATION TYPE: XR chest 2V DATE OF EXAM: 10/25/2018 COMPARISON: 07/15/2016 HISTORY: Fall. Chest pain TECHNIQUE: Frontal and lateral views of the chest are obtained. FINDINGS: Heart is slightly enlarged. There is no heart failure. Lungs are clear of consolidation. T here is no pleural effusion or pneumothorax. Thoracic aorta is atheromatous. There are chest leads. B carlos a thorax appears intact. IMPRESSION: No active cardiopulmonary disease. There is improved inspiration compared to old exam.
[2018-10-25 20:28] LABS: INR 1.2 (<1.2); Prothrombin Time 12.4 sec (9.0-12.0)
--- NOTE | 2018-10-25 20:30 | CT ---
EXAMINATION TYPE: CT brain rock olivarez DATE OF EXAM: 10/25/2018 COMPARISON: None HISTORY: Fall today. Injury to top of head. Dizziness. CT DLP: 1354.6 mGycm Automated exposure control for dose reduction was used. TECHNIQUE: CT scan of the head and cervical spine are performed without contrast. FINDINGS: There is cerebral cortical atrophy. There is no mass effect nor midline shift. There is n o sign of intracranial hemorrhage. No barium is intact. Cervical vertebra have fairly normal alignment. There is some degenerative disc space narrowing from C3 to C7 with spurring of the endplates. There is multilevel hypertrophic facet arthropathy. There is a few millimeter anterior subluxation of C3 in relation to C4 and also at C7 in relation to T1. IMPRESSION: Cerebral atrophy. No acute intracranial abnormality. Spondylotic changes in the cervical spine. Minimal degenerative subluxation at C3-4 and C7-T1. No fra cture in the cervical spine.
--- NOTE | 2018-10-25 20:40 | ED ---
General Adult HPI - General Chief complaint: Fall Stated complaint: fall/head lac Time Seen by Provider: 10/25/18 19:38 Source: patient, family Mode of arrival: wheelchair Limitations: no limitations - History of Present Illness Initial comments: Dictation was produced using [employer] dictation software. please excuse any grammatical, word or spelling errors. Chief Complaint: 88-year-old male with past nuchal history of A. fib, coronary artery disease dementia and syncope presents with head trauma after fall. History of Present Illness: His 88-year-old male with history of syncope. He is having his sink be managed outpatient by his primary care physician. Patient was sitting in bed when all of a sudden he lost balance and fell to the side striking his head. He states he didn't lose consciousness. Patient was found on the ground after loud thud was heard by the . Patient was assisted back to his seat and was brought to the emergency department. Patient feels at baseline at this time. Patient is noted to have a laceration to the top of his head that had difficulty controlling hemorrhage. He has a history of syncope. He just completed a Holter monitor approximately one month. He is awaiting results and follow-up with cardiology. The ROS documented in this emergency department record has been reviewed and confirmed by me. Those systems with pertinent positive or negative responses have been documented in the HPI. All other systems are other negative and/or noncontributory. PHYSICAL EXAM: General Impression: Alert and oriented x3, not in acute distress HEENT: Small one similar laceration to the vertex of the head with surrounding superficial abrasions, extra-ocular movements intact, pupils equal and reactive to light bilaterally, mucous membranes moist. Cardiovascular: Heart regular rate and rhythm, S1&S2 audible, no murmurs, rubs or gallops Chest: Lungs clear to auscultation bilaterally, no rhonchi, no wheeze, no rales Abdomen: Bowel sounds present, abdomen soft, non-tender, non-distended, no organomegaly Musculoskeletal: Pulses present and equal in all extremities, no peripheral edema Motor: no focal deficits noted Neurological: CN II-XII grossly intact, no focal motor or sensory deficits noted Skin: Intact with no visualized rashes Psych: Normal affect and mood ED course: 88yol male past medical history of multiple comorbidities presents after fall. Patient currently being worked up by primary care physician for syncope. Upon arrival are within acceptable limits. She isn't is on anticoagulation for atrial fibrillation. Return evaluation obtained. CBC, coag panel unremarkable. Metabolic panel shows creatinine of 1.9, be on a 51, troponin 0.072. Patient has a history of elevated troponin this appears to be at baseline. Patient does not have any ch est complaints. Patient's elevated troponin is likely secondary to chronic kidney disease. Laceration was repaired at bedside. Imaging studies are unremarkable. Patient clear for discharge. Family is questionable patient's syncope that seems to be frequent. They state that they're not worried about that. They do not want to be admitted for syncope workup. They requested to be discharge and follow-up with primary care physician. She is stable at bedside. He is able 3 at baseline. He does have good social situation under the care of his . Return parameters discussed. EKG interpretation: Ventricular rate 85, atrial fibrillation, QS 82, QTC 487. No OH prolongation, no QTC prolongation, no ST or T-wave changes noted. . Overall, this EKG is unremarkable - Related Data Home Medications Medication Instructions Recorded Confirmed Allopurinol [Zyloprim] 100 mg PO DAILY 03/27/17 10/25/18 Bumetanide [BUMEX] 0.5 mg PO DAILY 10/25/18 10/25/18 Calcitriol 0.25 mcg PO TUTHSA 10/25/18 10/25/18 Cholecalciferol [Vitamin D3 (25 1,000 unit PO DAILY 10/25/18 10/25/18 Mcg = 1000 Iu)] Donepezil [Aricept] 10 mg PO DAILY 10/25/18 10/25/18 Metoprolol Tartrate [Lopressor] 12.5 mg PO BID 10/25/18 10/25/18 Midodrine HCl [ProAmantine] 2.5 mg PO TID 10/25/18 10/25/18 Pregabalin [Lyrica] 50 mg PO DAILY 10/25/18 10/25/18 Previous Rx's Medication Instructions Recorded Atorvastatin [Lipitor] 40 mg PO HS #30 tab 07/18/16 Nitroglycerin Sl Tabs [Nitrostat] 0.4 mg SUBLINGUAL Q5M PRN #100 tab 07/18/16 Clopidogrel [Plavix] 75 mg PO DAILY #90 tab 04/01/17 Rivaroxaban [Xarelto] 15 mg PO W/SUPPER #90 tab 04/01/17 Allergies Allergy/AdvReac Type Severity Reaction Status Date / Time flecainide Allergy Swelling Verified 10/25/18 19:06 steroids Allergy Rapid Uncoded 10/25/18 19:06 Heart Rate Review of Systems ROS Statement: Those systems with pertinent positive or pertinent negative responses have been documented in the HPI. ROS Other: All systems not noted in ROS Statement are negative. 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 Low blood pressure. Does get confused @ times. Last Myocardial Infarction Date:: 2000 History of Any Multi-Drug Resistant Organisms: None Reported Past Surgical History: Heart Catheterization With Stent, Joint Replacement, Orthopedic Surgery Additional Past Surgical History / Comment(s): LEFT KNEE REPLACED, YOSELIN CATARACTS, CARDIAC STENTS X2, 3rd stent placed 03/31/2017"LT KIDNEY BX-NEG", colonoscopy. Past Anesthesia/Blood Transfusion Reactions: Motion Sickness Date of Last Stent Placement:: 2016 Past Psychological History: No Psychological Hx Reported Smoking Status: Never smoker Past Alcohol Use History: None Reported Past Drug Use History: None Reported - Past Family History Mother Additional Family Medical History / Comment(s): "HEART PROBLEMS" Father Family Medical History: Pneumonia General Exam Limitations: no limitations Course Vital Signs 10/25/18 19:01 Temperature 97.6 F Pulse Rate 65 Respiratory 18 Rate Blood Pressure 135/82 O2 Sat by Pulse 95 Oximetry Procedures - Laceration Laceration #1 Consent Obtained: verbal consent Indication: laceration Site: scalp Size (cm): 2 Description: stellate Anesthetic Used: lidocaine 1%, with epi Anesthesia Technique: local infiltration Pre-repair: wound explored Type of Sutures: nylon Size of Sutures: 5-0 Technique: simple, interrupted Patient Tolerated Procedure: well Medical Decision Making - Lab Data Result diagrams: 10/25/18 19:43 10/25/18 19:43 Lab Results 10/25/18 10/25/18 10/25/18 Range/Units 19:43 19:43 19:43 WBC 10.1 (3.8-10.6) k/uL RBC 4.58 (4.30-5.90) m/uL Hgb 14.0 (13.0-17.5) gm/dL Hct 43.5 (39.0-53.0) % MCV 95.0 (80.0-100.0) fL MCH 30.7 (25.0-35.0) pg MCHC 32.3 (31.0-37.0) g/dL RDW 15.2 (11.5-15.5) % Plt Count 149 L (150-450) k/uL Neutrophils % 72 % Lymphocytes % 16 % Monocytes % 7 % Eosinophils % 4 % Basophils % 0 % Neutrophils # 7.2 (1.3-7.7) k/uL Lymphocytes # 1.6 (1.0-4.8) k/uL Monocytes # 0.7 (0-1.0) k/uL Eosinophils # 0.4 (0-0.7) k/uL Basophils # 0.0 (0-0.2) k/uL PT 12.4 H (9.0-12.0) sec INR 1.2 H (<1.2) Sodium 141 (137-145) mmol/L Potassium 4.4 (3.5-5.1) mmol/L Chloride 101 (98-107) mmol/L Carbon Dioxide 29 (22-30) mmol/L Anion Gap 11 mmol/L BUN 51 H (9-20) mg/dL Creatinine 1.90 H (0.66-1.25) mg/dL Est GFR (CKD-EPI)AfAm 36 (>60 ml/min/1.73 sqM) Est GFR (CKD-EPI)NonAf 31 (>60 ml/min/1.73 sqM) Glucose 116 H (74-99) mg/dL Calcium 9.8 (8.4-10.2) mg/dL Magnesium 2.0 (1.6-2.3) mg/dL Troponin I (0.000-0.034) ng/mL 10/25/18 Range/Units 19:43 WBC (3.8-10.6) k/uL RBC (4.30-5.90) m/uL Hgb (13.0-17.5) gm/dL Hct (39.0-53.0) % MCV (80.0-100.0) fL MCH (25.0-35.0) pg MCHC (31.0-37.0) g/dL RDW (11.5-15.5) % Plt Count (150-450) k/uL Neutrophils % % Lymphocytes % % Monocytes % % Eosinophils % % Basophils % % Neutrophils # (1.3-7.7) k/uL Lymphocytes # (1.0-4.8) k/uL Monocytes # (0-1.0) k/uL Eosinophils # (0-0.7) k/uL Basophils # (0-0.2) k/uL PT (9.0-12.0) sec INR (<1.2) Sodium (137-145) mmol/L Potassium (3.5-5.1) mmol/L Chloride (98-107) mmol/L Carbon Dioxide (22-30) mmol/L Anion Gap mmol/L BUN (9-20) mg/dL Creatinine (0.66-1.25) mg/dL Est GFR (CKD-EPI)AfAm (>60 ml/min/1.73 sqM) Est GFR (CKD-EPI)NonAf (>60 ml/min/1.73 sqM) Glucose (74-99) mg/dL Calcium (8.4-10.2) mg/dL Magnesium (1.6-2.3) mg/dL Troponin I 0.072 H* (0.000-0.034) ng/mL Disposition Clinical Impression: Laceration, Syncope, Fall Disposition: HOME SELF-CARE Condition: Good Instructions (If sedation given, give patient instructions): Fall Prevention for Older Adults (ED) Is patient prescribed a controlled substance at d/c from ED?: No Referrals: Rusty Lara MD [Primary Care Provider] - 1-2 days Time of Disposition: 21:33
[2018-10-25] MEDS ORDERED: LIDOCAINE 1%-EPI 1:100,000 20 ML VIAL SQ STA (20:43)
[2018-10-25 22:08] VITALS: BP 112/80; PULSE 87; RESP 19; TEMP 98
== END 2018-10-25 21:53 | disposition home or self-care (01) ==
LOC: EC 18:56
DX: S01.01XA Laceration without foreign body of scalp, initial encounter (principal); R55 Syncope and collapse; R79.89 Other specified abnormal findings of blood chemistry; I48.91 Unspecified atrial fibrillation; I25.10 Atherosclerotic heart disease of native coronary artery without angina pectoris; F03.90 Unspecified dementia, unspecified severity, without behavioral disturbance, psychotic disturbance, mood disturbance, and anxiety; I25.2 Old myocardial infarction; M19.90 Unspecified osteoarthritis, unspecified site; Z95.5 Presence of coronary angioplasty implant and graft; Z96.652 Presence of left artificial knee joint; Z79.899 Other long term (current) drug therapy; Z88.8 Allergy status to other drugs, medicaments and biological substances; W06.XXXA Fall from bed, initial encounter
CPT/HCPCS: 12001; 36415; 70450; 71046; 72125; 72170; 80048; 83735; 84484; 85025; 85610; 93005; 99284

== ENCOUNTER → 2019-01-12 | Outpatient (CLI) | payer MEDICARE, OTHER, BC ==
[2019-01-12 12:10] LABS: Basophils # (A) 0.1 k/uL (0-0.2); Basophils % (A) 1 %; Eosinophils # (A) 0.3 k/uL (0-0.7); Eosinophils % (A) 4 %; HCT 40.6 % (39.0-53.0); HGB 13.2 gm/dL (13.0-17.5); Lymphocytes % (A) 12 %; MCH 31.4 pg (25.0-35.0); MCHC 32.5 g/dL (31.0-37.0); MCV 96.7 fL (80.0-100.0); Mean Platelet Volume 7.7; Monocytes # (A) 0.4 k/uL (0-1.0); Monocytes % (A) 5 %; Neutrophils # (A) 6.4 k/uL (1.3-7.7); Neutrophils % (A) 77 %; Platelet Count 178 k/uL (150-450); RDW 14.7 % (11.5-15.5); WBC 8.3 k/uL (3.8-10.6)
[2019-01-12 12:23] LABS: Appearance,Urine Cloudy (Clear); Bacteria,Urine Rare /hpf; Bilirubin,Urine 1+ (Negative); Blood,Urine Moderate (Negative); Color,Urine Yellow; Glucose,Urine (UA) Negative (Negative); Hyaline Casts,Urine 78 /lpf (0-2); Ketones,Urine Negative (Negative); Leukocyte Esterase,Urine Negative (Negative); Mucus,Urine Many /hpf; Nitrite,Urine Negative (Negative); PH, Urine 5.5 (5.0-8.0); Protein,Urine 1+ (Negative); RBC,Urine 7 /hpf (0-5); Specific Gravity,Urine 1.028 (1.001-1.035); Squamous Epithelial Cell,Urine <1 /hpf (0-4); WBC,Urine 3 /hpf (0-5)
[2019-01-12 16:48] LABS: Iron Saturation 27.76 (15.00-50.00)
[2019-01-12 16:55] LABS: Vitamin D 25 Hydroxy 49.1 ng/mL (30.0-100.0)
[2019-01-12 17:00] LABS: Anion Gap 8.6 mmol/L (4.00-12.00); Calcium 9.5 mg/dL (8.7-10.3); Carbon Dioxide 27.4 mmol/L (21.6-31.8); Magnesium 2.2 mg/dL (1.5-2.4); Phosphorus 3.4 mg/dL (2.4-5.1); Potassium 4.5 mmol/L (3.5-5.5); Uric Acid 6.3 mg/dL (3.7-8.7)
[2019-01-12 19:09] LABS: Creatinine,Urine Random 325.4 mg/dL
[2019-01-12 19:24] LABS: Total Protein,Urine Random 75.4 mg/dL (0.0-13.5)
== END | disposition home or self-care (01) ==
LOC: LABWHC1 10:52
PROVIDERS: ATTEND Internal Medicine Nephrology
DX: M10.9 Gout, unspecified (principal); N39.0 Urinary tract infection, site not specified; E21.3 Hyperparathyroidism, unspecified; D63.1 Anemia in chronic kidney disease; N18.3 Chronic kidney disease, stage 3 (moderate); R80.9 Proteinuria, unspecified
CPT/HCPCS: 36415; 80048; 81001; 82040; 82306; 82570; 82728; 83540; 83550; 83735; 83970; 84100; 84156; 84550; 85025

== ENCOUNTER → 2019-02-23 | Outpatient (CLI) | payer MEDICARE, BC ==
[2019-02-23 10:56] LABS: Appearance,Urine Clear (Clear); Bacteria,Urine Rare /hpf; Bilirubin,Urine Negative (Negative); Blood,Urine Small (Negative); Color,Urine Yellow; Glucose,Urine (UA) Negative (Negative); Hyaline Casts,Urine 51 /lpf (0-2); Ketones,Urine Negative (Negative); Leukocyte Esterase,Urine Trace (Negative); Mucus,Urine Rare /hpf; Nitrite,Urine Negative (Negative); PH, Urine 5.5 (5.0-8.0); Protein,Urine Trace (Negative); RBC,Urine 15 /hpf (0-5); Specific Gravity,Urine 1.015 (1.001-1.035); Urobilinogen,Urine <2.0 mg/dL (<2.0); WBC,Urine 8 /hpf (0-5)
[2019-02-23 11:17] LABS: Basophils # (A) 0.1 k/uL (0-0.2); Basophils % (A) 1 %; Eosinophils # (A) 0.3 k/uL (0-0.7); Eosinophils % (A) 3 %; HCT 42.7 % (39.0-53.0); HGB 13.7 gm/dL (13.0-17.5); Lymphocytes # (A) 1.3 k/uL (1.0-4.8); Lymphocytes % (A) 14 %; MCH 31.4 pg (25.0-35.0); MCV 98.3 fL (80.0-100.0); Mean Platelet Volume 8.2; Monocytes # (A) 0.5 k/uL (0-1.0); Monocytes % (A) 6 %; Neutrophils # (A) 7.1 k/uL (1.3-7.7); Neutrophils % (A) 75 %; Platelet Count 183 k/uL (150-450); RBC 4.34 m/uL (4.30-5.90); RDW 14.7 % (11.5-15.5); WBC 9.4 k/uL (3.8-10.6)
[2019-02-23 16:46] LABS: % Iron Saturation 23.26 (15.00-50.00); African American GFR (CKD) 36.2 (60.0-200.0); BUN/Creat Ratio 22.63 Ratio (12.00-20.00); Calcium 9.6 mg/dL (8.7-10.3); Magnesium 2.1 mg/dL (1.5-2.4); Phosphorus 3.1 mg/dL (2.4-5.1); Potassium 4.2 mmol/L (3.5-5.5); Uric Acid 6.1 mg/dL (3.7-8.7)
[2019-02-23 16:55] LABS: Ferritin 197.7 ng/mL (22.0-322.0)
[2019-02-23 18:16] LABS: Creatinine,Urine Random 92.4 mg/dL
[2019-02-23 20:29] LABS: Total Protein,Urine Random 24.6 mg/dL (0.0-13.5)
== END | disposition home or self-care (01) ==
LOC: LABWHC1 09:22
PROVIDERS: ATTEND Nurse Practitioner Family
DX: N39.0 Urinary tract infection, site not specified (principal); M10.9 Gout, unspecified; E21.3 Hyperparathyroidism, unspecified; D63.1 Anemia in chronic kidney disease; N18.3 Chronic kidney disease, stage 3 (moderate); R80.9 Proteinuria, unspecified
CPT/HCPCS: 36415; 80048; 81001; 82040; 82306; 82570; 82728; 83540; 83550; 83735; 83970; 84100; 84156; 84550; 85025; 87086

== ENCOUNTER 2019-05-30 12:08 | Inpatient (IN) | payer MEDICARE, BC ==
[2019-05-30] MEDS ORDERED: SODIUM CHLORIDE 0.9% 1,000 ML IV STA (12:32)
[2019-05-30] MEDS ORDERED: SODIUM CHLORIDE 0.9% 500 ML 500 ML IV STA (12:32)
--- NOTE | 2019-05-30 12:35 | ED ---
General Adult HPI - General Chief complaint: Syncope Stated complaint: syncope Time Seen by Provider: 05/30/19 12:23 Source: patient, family, RN notes reviewed Mode of arrival: wheelchair Limitations: no limitations - History of Present Illness Initial comments: Patient is a pleasant 88-year-old male presenting to the emergency department following syncopal episode. Episode occurred yesterday morning. Patient is a somewhat poor historian and majority of history is taken from . Patient had a single episode yesterday morning. Patient did lose consciousness while using his walker. No injury. Patient states he believes he did have some chest discomfort yesterday. Patient has had some chest discomfort over the past week or so. Patient has been somewhat more fatigued. There were 2 other episodes were patient may have passed out as well. No headache. No isolated area of weakness or confusion. No dyspnea. No abdominal or back pain. Patient currently is symptom-free. - Related Data Home Medications Medication Instructions Recorded Confirmed Allopurinol [Zyloprim] 100 mg PO DAILY 03/27/17 10/25/18 Bumetanide [BUMEX] 0.5 mg PO DAILY 10/25/18 10/25/18 Calcitriol 0.25 mcg PO TUTHSA 10/25/18 10/25/18 Cholecalciferol [Vitamin D3 (25 1,000 unit PO DAILY 10/25/18 10/25/18 Mcg = 1000 Iu)] Donepezil [Aricept] 10 mg PO DAILY 10/25/18 10/25/18 Metoprolol Tartrate [Lopressor] 12.5 mg PO BID 10/25/18 10/25/18 Midodrine HCl [ProAmantine] 2.5 mg PO TID 10/25/18 10/25/18 Pregabalin [Lyrica] 50 mg PO DAILY 10/25/18 10/25/18 Previous Rx's Medication Instructions Recorded Atorvastatin [Lipitor] 40 mg PO HS #30 tab 07/18/16 Nitroglycerin Sl Tabs [Nitrostat] 0.4 mg SUBLINGUAL Q5M PRN #100 tab 07/18/16 Clopidogrel [Plavix] 75 mg PO DAILY #90 tab 04/01/17 Rivaroxaban [Xarelto] 15 mg PO W/SUPPER #90 tab 04/01/17 Allergies Allergy/AdvReac Type Severity Reaction Status Date / Time flecainide Allergy Swelling Verified 05/30/19 12:18 steroids Allergy Rapid Uncoded 05/30/19 12:18 Heart Rate Review of Systems ROS Statement: Those systems with pertinent positive or pertinent negative responses have been documented in the HPI. ROS Other: All systems not noted in ROS Statement are negative. Constitutional: Denies: fever Eyes: Denies: eye pain ENT: Denies: ear pain Respiratory: Denies: cough, dyspnea Cardiovascular: Reports: chest pain Endocrine: Denies: fatigue Gastrointestinal: Denies: abdominal pain Genitourinary: Denies: dysuria Musculoskeletal: Denies: back pain Skin: Denies: rash Neurological: Denies: weakness Past Medical History Past Medical History: Atrial Fibrillation, Coronary Artery Disease (CAD), Chest Pain / Angina, Dementia, Hearing Disorder / Deafness, Hyperlipidemia, Myocardial Infarction ([place]), Osteoarthritis (OA), Renal Disease, Syncope Additional Past Medical History / Comment(s): DJD, AAA-NOT SURE OF SIZE, "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 Low blood pressure. Does get confused @ times. Last Myocardial Infarction Date:: 2000 History of Any Multi-Drug Resistant Organisms: None Reported Past Surgical History: Heart Catheterization With Stent, Joint Replacement, Orthopedic Surgery Additional Past Surgical History / Comment(s): LEFT KNEE REPLACED, YOSELIN CATARACTS, CARDIAC STENTS X2, 3rd stent placed 03/31/2017"LT KIDNEY BX-NEG", colonoscopy. Past Anesthesia/Blood Transfusion Reactions: Motion Sickness Date of Last Stent Placement:: 2016 Past Psychological History: No Psychological Hx Reported Smoking Status: Never smoker Past Alcohol Use History: None Reported Past Drug Use History: None Reported - Past Family History Mother Additional Family Medical History / Comment(s): "HEART PROBLEMS" Father Family Medical History: Pneumonia General Exam Limitations: no limitations General appearance: alert, in no apparent distress Head exam: Present: normocephalic Eye exam: Present: normal appearance, PERRL, EOMI ENT exam: Present: normal oropharynx Neck exam: Present: normal inspection. Absent: tenderness Respiratory exam: Present: normal lung sounds bilaterally Cardiovascular Exam: Present: irregular rhythm GI/Abdominal exam: Present: soft. Absent: tenderness Extremities exam: Present: normal inspection Neurological exam: Present: alert, CN II-XII intact Expanded Motor strength exam: RUE: 5, LUE: 5, RLE: 5, LLE: 5 Eye Response: (4) open spontaneously Motor Response: (6) obeys commands Verbal Response: (5) oriented Psychiatric exam: Present: normal affect, normal mood Skin exam: Present: normal color Course Vital Signs 05/30/19 05/30/19 12:18 14:39 Temperature 97.4 F L Pulse Rate 64 53 L Respiratory 18 18 Rate Blood Pressure 79/53 143/93 O2 Sat by Pulse 97 96 Oximetry EKG Findings - EKG Comments: EKG Findings:: A. fib with rate of 61. QRS 98. QT 444. QTC 446. Right axis. Normal QRS. Nonspecific ST-T. Medical Decision Making - Medical Decision Making Patient reevaluated and updated. Case was discussed with Dr. Lara who did come see his patient and will admit. He is agreeable to cardiology consult. He also requests neurology consult. Heparin will be held at this time pending cardiology evaluation. Patient is currently on Xarelto. - Lab Data Result diagrams: 05/30/19 12:48 05/30/19 12:48 Lab Results 05/30/19 05/30/19 05/30/19 Range/Units 12:48 12:48 12:48 WBC 7.4 (3.8-10.6) k/uL RBC 4.06 L (4.30-5.90) m/uL Hgb 11.8 L (13.0-17.5) gm/dL Hct 38.6 L (39.0-53.0) % MCV 95.0 (80.0-100.0) fL MCH 29.1 (25.0-35.0) pg MCHC 30.7 L (31.0-37.0) g/dL RDW 16.0 H (11.5-15.5) % Plt Count 157 (150-450) k/uL Neutrophils % 74 % Lymphocytes % 12 % Monocytes % 7 % Eosinophils % 5 % Basophils % 1 % Neutrophils # 5.5 (1.3-7.7) k/uL Lymphocytes # 0.9 L (1.0-4.8) k/uL Monocytes # 0.5 (0-1.0) k/uL Eosinophils # 0.4 (0-0.7) k/uL Basophils # 0.1 (0-0.2) k/uL Hypochromasia Slight PT 14.1 H (9.0-12.0) sec INR 1.4 H (<1.2) APTT 33.9 H (22.0-30.0) sec D-Dimer 0.30 (<0.60) mg/L FEU Sodium 140 (137-145) mmol/L Potassium 4.4 (3.5-5.1) mmol/L Chloride 106 (98-107) mmol/L Carbon Dioxide 27 (22-30) mmol/L Anion Gap 7 mmol/L BUN 44 H (9-20) mg/dL Creatinine 1.87 H (0.66-1.25) mg/dL Est GFR (CKD-EPI)AfAm 37 (>60 ml/min/1.73 sqM) Est GFR (CKD-EPI)NonAf 32 (>60 ml/min/1.73 sqM) Glucose 148 H (74-99) mg/dL Calcium 9.7 (8.4-10.2) mg/dL Magnesium 2.2 (1.6-2.3) mg/dL Total Bilirubin 0.7 (0.2-1.3) mg/dL AST 44 (17-59) U/L ALT 34 (4-49) U/L Alkaline Phosphatase 146 H (38-126) U/L Troponin I (0.000-0.034) ng/mL Total Protein 7.0 (6.3-8.2) g/dL Albumin 3.6 (3.5-5.0) g/dL 05/30/19 Range/Units 12:48 WBC (3.8-10.6) k/uL RBC (4.30-5.90) m/uL Hgb (13.0-17.5) gm/dL Hct (39.0-53.0) % MCV (80.0-100.0) fL MCH (25.0-35.0) pg MCHC (31.0-37.0) g/dL RDW (11.5-15.5) % Plt Count (150-450) k/uL Neutrophils % % Lymphocytes % % Monocytes % % Eosinophils % % Basophils % % Neutrophils # (1.3-7.7) k/uL Lymphocytes # (1.0-4.8) k/uL Monocytes # (0-1.0) k/uL Eosinophils # (0-0.7) k/uL Basophils # (0-0.2) k/uL Hypochromasia PT (9.0-12.0) sec INR (<1.2) APTT (22.0-30.0) sec D-Dimer (<0.60) mg/L FEU Sodium (137-145) mmol/L Potassium (3.5-5.1) mmol/L Chloride (98-107) mmol/L Carbon Dioxide (22-30) mmol/L Anion Gap mmol/L BUN (9-20) mg/dL Creatinine (0.66-1.25) mg/dL Est GFR (CKD-EPI)AfAm (>60 ml/min/1.73 sqM) Est GFR (CKD-EPI)NonAf (>60 ml/min/1.73 sqM) Glucose (74-99) mg/dL Calcium (8.4-10.2) mg/dL Magnesium (1.6-2.3) mg/dL Total Bilirubin (0.2-1.3) mg/dL AST (17-59) U/L ALT (4-49) U/L Alkaline Phosphatase (38-126) U/L Troponin I 0.107 H* (0.000-0.034) ng/mL Total Protein (6.3-8.2) g/dL Albumin (3.5-5.0) g/dL - Radiology Data Radiology results: image reviewed (Chest x-ray shows no acute process) Disposition Clinical Impression: Syncope Disposition: ADMITTED IP TO THIS HOSP Is patient prescribed a controlled substance at d/c from ED?: No Referrals: Rusty Lara MD [Primary Care Provider] - 1-2 days Decision Time: 15:07
[2019-05-30 13:10] LABS: Basophils # (A) 0.1 k/uL (0-0.2); Basophils % (A) 1 %; Eosinophils # (A) 0.4 k/uL (0-0.7); Eosinophils % (A) 5 %; HCT 38.6 % (39.0-53.0); HGB 11.8 gm/dL (13.0-17.5); Hypochromasia Slight; Lymphocytes # (A) 0.9 k/uL (1.0-4.8); Lymphocytes % (A) 12 %; MCH 29.1 pg (25.0-35.0); MCHC 30.7 g/dL (31.0-37.0); Mean Platelet Volume 8.8; Monocytes # (A) 0.5 k/uL (0-1.0); Monocytes % (A) 7 %; Neutrophils # (A) 5.5 k/uL (1.3-7.7); Neutrophils % (A) 74 %; Platelet Count 157 k/uL (150-450); RBC 4.06 m/uL (4.30-5.90); WBC 7.4 k/uL (3.8-10.6)
[2019-05-30 13:18] LABS: D-Dimer 0.3 mg/L FEU (<0.60); INR 1.4 (<1.2); Partial Thromboplastin Time 33.9 sec (22.0-30.0); Prothrombin Time 14.1 sec (9.0-12.0)
[2019-05-30 13:20] LABS: Albumin 3.6 g/dL (3.5-5.0); Calcium 9.7 mg/dL (8.4-10.2); Magnesium 2.2 mg/dL (1.6-2.3); Potassium 4.4 mmol/L (3.5-5.1); Total Bilirubin 0.7 mg/dL (0.2-1.3)
--- NOTE | 2019-05-30 13:27 | XR ---
EXAMINATION TYPE: XR chest 2V DATE OF EXAM: 05/30/2019 COMPARISON: 10/25/2018 HISTORY: Syncope and hypotension TECHNIQUE: Frontal and lateral views of the chest are obtained. FINDINGS: There is no focal air space opacity, pleural effusion, or pneumothorax seen. The cardiac silhouette size is enlarged. The osseous structures are intact. Mild multilevel degenerative change of the spine. There is diffuse osseous demineralization. Sequela of chronic rotator cuff repair is s een bilaterally with elevation of the humeral heads. IMPRESSION: No acute cardiopulmonary process. Similar enlarged cardiac mediastinal silhouette.
[2019-05-30] MEDS ORDERED: NALOXONE 0.4 MG/ML 1 ML VIAL IV PRN (15:08)
[2019-05-30 15:22] LABS: Appearance,Urine Clear (Clear); Bilirubin,Urine Negative (Negative); Blood,Urine Small (Negative); Color,Urine Light Yellow; Glucose,Urine (UA) Negative (Negative); Hyaline Casts,Urine 1 /lpf (0-2); Ketones,Urine Negative (Negative); Leukocyte Esterase,Urine Negative (Negative); Mucus,Urine Rare /hpf; Nitrite,Urine Negative (Negative); PH, Urine 5.5 (5.0-8.0); Protein,Urine Negative (Negative); RBC,Urine 4 /hpf (0-5); Urobilinogen,Urine <2.0 mg/dL (<2.0)
[2019-05-30] MEDS: SODIUM CHLORIDE 0.9% 1,000 ML IV SCH (16:40)
[2019-05-30] MEDS ORDERED: NITROGLYCERIN SL TABS 0.4 MG TAB SUBLINGUAL PRN (17:07)
--- NOTE | 2019-05-30 17:13 | P.HPIM ---
History of Present Illness 88-year-old male was brought to the emergency room after episode of syncope yesterday. states patient was sitting at the table and his had dropped into the food. His blood pressure at that time was 60/40. Patient has a histo ry of atrial fibrillation persistent coronary artery disease with [place] and stents. Patient also has dementia. Patient has chronic renal disease stage III sees Dr. Treviño. 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 Low blood pressure. Does get confused @ times. Last Myocardial Infarction Date:: 2000 History of Any Multi-Drug Resistant Organisms: None Reported Past Surgical History: Heart Catheterization With Stent, Joint Replacement, Orthopedic Surgery Additional Past Surgical History / Comment(s): LEFT KNEE REPLACED, YOSELIN CATARACTS, CARDIAC STENTS X2, 3rd stent placed 03/31/2017"LT KIDNEY BX-NEG", colonoscopy. Past Anesthesia/Blood Transfusion Reactions: Motion Sickness Date of Last Stent Placement:: 2016 Past Psychological History: No Psychological Hx Reported Smoking Status: Never smoker Past Alcohol Use History: None Reported Past Drug Use History: None Reported - Past Family History Mother Additional Family Medical History / Comment(s): "HEART PROBLEMS" Father Family Medical History: Pneumonia Medications and Allergies Home Medications Medication Instructions Recorded Confirmed Type Nitroglycerin Sl Tabs [Nitrostat] 0.4 mg SUBLINGUAL Q5M PRN #100 tab 07/18/16 05/30/19 Rx Allopurinol [Zyloprim] 100 mg PO DAILY 03/27/17 05/30/19 History Rivaroxaban [Xarelto] 15 mg PO W/SUPPER #90 tab 04/01/17 05/30/19 Rx Bumetanide [BUMEX] 0.25 mg PO DAILY 10/25/18 05/30/19 History Cholecalciferol [Vitamin D3 (25 1,000 unit PO DAILY 10/25/18 05/30/19 History Mcg = 1000 Iu)] Donepezil [Aricept] 10 mg PO HS 10/25/18 05/30/19 History Amiodarone [Cordarone] 100 mg PO DAILY 05/30/19 05/30/19 History Aspirin EC [Ecotrin Low Dose] 81 mg PO HS 05/30/19 05/30/19 History Calcitriol [Rocaltrol] 0.25 mcg PO TUTHSA 05/30/19 05/30/19 History Midodrine [ProAmatine] 5 mg PO TID 05/30/19 05/30/19 History Allergies Allergy/AdvReac Type Severity Reaction Status Date / Time flecainide Allergy Swelling Verified 05/30/19 16:55 steroids Allergy Rapid Uncoded 05/30/19 12:18 Heart Rate Physical Exam Vitals: Vital Signs Temp Pulse Resp BP Pulse Ox 05/30/19 14:39 53 L 18 143/93 96 05/30/19 12:18 97.4 F L 64 18 79/53 97 Intake and Output 05/30/19 05/30/19 05/30/19 06:59 14:59 22:59 Other: Weight 78.471 kg - Constitutional General appearance: mild distress - EENT Eyes: PERRLA Ears: bilateral: normal - Neck Neck: normal ROM - Respiratory Respiratory: bilateral: CTA - Cardiovascular Rhythm: irregularly irregular Abnormal Heart Sounds: systolic murmur - Gastrointestinal General gastrointestinal: soft - Integumentary Integumentary: normal - Neurologic Neurologic: CNII-XII intact - Musculoskeletal Musculoskeletal: generalized weakness - Psychiatric Patient awake and alert talkative Results CBC & Chem 7: 05/30/19 12:48 05/30/19 12:48 Labs: Abnormal Lab Results - Last 24 Hours (Table) 05/30/19 05/30/19 05/30/19 Range/Units 12:48 12:48 12:48 RBC 4.06 L (4.30-5.90) m/uL Hgb 11.8 L (13.0-17.5) gm/dL Hct 38.6 L (39.0-53.0) % MCHC 30.7 L (31.0-37.0) g/dL RDW 16.0 H (11.5-15.5) % Lymphocytes # 0.9 L (1.0-4.8) k/uL PT 14.1 H (9.0-12.0) sec INR 1.4 H (<1.2) APTT 33.9 H (22.0-30.0) sec BUN 44 H (9-20) mg/dL Creatinine 1.87 H (0.66-1.25) mg/dL Glucose 148 H (74-99) mg/dL Alkaline Phosphatase 146 H (38-126) U/L Troponin I (0.000-0.034) ng/mL Urine Blood (Negative) Urine Mucus (None) /hpf 05/30/19 05/30/19 Range/Units 12:48 15:15 RBC (4.30-5.90) m/uL Hgb (13.0-17.5) gm/dL Hct (39.0-53.0) % MCHC (31.0-37.0) g/dL RDW (11.5-15.5) % Lymphocytes # (1.0-4.8) k/uL PT (9.0-12.0) sec INR (<1.2) APTT (22.0-30.0) sec BUN (9-20) mg/dL Creatinine (0.66-1.25) mg/dL Glucose (74-99) mg/dL Alkaline Phosphatase (38-126) U/L Troponin I 0.107 H* (0.000-0.034) ng/mL Urine Blood Small H (Negative) Urine Mucus Rare H (None) /hpf Chest x-ray: report reviewed Assessment and Plan Plan: Assessment Syncope Hypotension 60/40 at home Tremor Chest pain Atrial fibrillation persistent Coronary artery disease with ME and stents Dementia Heart of hearing Hyperlipidemia Osteoarthritis Chronic kidney disease stage III Dr. Treviño Plan Cardiology and neurology consultation
[2019-05-30] MEDS ORDERED: RIVAROXABAN 15 MG TAB PO SCH (17:30)
[2019-05-30] MEDS: MIDODRINE 5 MG TAB PO SCH (17:50)
[2019-05-30] MEDS: ASPIRIN 81 MG PO SCH (22:53)
[2019-05-30] MEDS: DONEPEZIL 10 MG TAB PO SCH (22:53)
[2019-05-31 06:28] LABS: Basophils % (A) 1 %; Eosinophils # (A) 0.4 k/uL (0-0.7); Eosinophils % (A) 7 %; HCT 36.6 % (39.0-53.0); HGB 11.3 gm/dL (13.0-17.5); Hypochromasia Slight; Lymphocytes # (A) 1.2 k/uL (1.0-4.8); Lymphocytes % (A) 23 %; MCH 29.2 pg (25.0-35.0); MCHC 30.8 g/dL (31.0-37.0); MCV 94.6 fL (80.0-100.0); Monocytes # (A) 0.4 k/uL (0-1.0); Monocytes % (A) 7 %; Neutrophils # (A) 3.2 k/uL (1.3-7.7); Neutrophils % (A) 61 %; Platelet Count 154 k/uL (150-450); RBC 3.87 m/uL (4.30-5.90); RDW 15.9 % (11.5-15.5); WBC 5.3 k/uL (3.8-10.6)
[2019-05-31 06:39] LABS: Calcium 9.1 mg/dL (8.4-10.2); Potassium 4.3 mmol/L (3.5-5.1)
[2019-05-31] MEDS: MIDODRINE 5 MG TAB PO SCH ×3 (08:29→17:10)
[2019-05-31] MEDS: SODIUM CHLORIDE 0.9% 1,000 ML IV SCH ×2 (08:29→17:14)
[2019-05-31] MEDS ORDERED: AMIODARONE 100 MG TAB PO SCH (09:00)
--- NOTE | 2019-05-31 09:40 | CONS ---
CONSULTATION CHIEF COMPLAINT: Syncope. Liudmila is an 88-year-old gentleman with history of atrial fibrillation, dementia, prior history of syncope, degenerative joint disease, atrial fibrillation, abdominal aortic aneurysm, who presented to the hospital having had an episode of syncope at home. The patient was sitting at a table and then suddenly dropped into his food. His blood pressure was low at 60/40 and he eventually regained consciousness. Came to the emergency room and has done well since. He did not have any episodes of chest pain. He denies difficulty in breathing, leg edema, PND or orthopnea. Patient has chronic renal insufficiency. At the time of my evaluation this morning, he appears comfortable at rest. The patient has had labs hemoglobin is 11.3. Troponins are mildly elevated at 0.1, 0.09 and 0.09. BUN and creatinine are elevated at 38 and 1.7. EKG shows atrial fibrillation with nonspecific ST-T wave changes. Patient has known history of syncope and is currently on midodrine for the same. PAST MEDICAL HISTORY: Significant for coronary artery disease, status post angioplasty, persistent atrial fibrillation, dementia. CURRENT MEDICATIONS: Current medications at home include Xarelto, midodrine, Aricept, Bumex, aspirin, amiodarone, Zyloprim. ALLERGIES: Allergic to FLECAINIDE and STEROIDS. FAMILY HISTORY: Negative for premature coronary artery disease. SOCIAL HISTORY: Denies smoking, ETOH abuse or drug abuse. REVIEW OF SYSTEMS: HEENT is unremarkable. CARDIAC: As described above. RESPIRATORY: As described above. GI: Negative. GENITOURINARY: Negative. ALLERGY/IMMUNOLOGY: Negative. MUSCULOSKELETAL: Significant for arthritis. PSYCHOSOCIAL: Negative. ENDOCRINE: Negative. DERM: Negative. CONSTITUTIONAL: Negative. ONCOLOGICAL: Negative. VIDEOGRAPHER: Significant for syncope. PHYSICAL EXAMINATION: On exam, patient appears comfortable at rest. Heart rate is 60 beats per minute. Blood pressure is 101/61. Respirations 18. Chest exam reveals good air entry bilaterally. Heart exam reveals first and second heart sounds, irregular rhythm and a systolic murmur at the left lower sternal border. Abdomen is soft. Exam of extremities reveals trace edema. Peripheral pulses are felt. LABS: Labs are as described above. ASSESSMENT: 1. Syncope secondary to hypotension. 2. Coronary artery disease, status post angioplasty. 3. Elevated troponin secondary to renal insufficiency. 4. Chronic renal insufficiency. PLAN: I will obtain a 2D echo on the patient to evaluate his LV function. Continue on current medical therapy and adjust therapies as needed. MMODL / IJN: [id number] /
[2019-05-31] MEDS: BUMETANIDE 0.5 MG TABLET PO SCH (09:48)
[2019-05-31] MEDS: CHOLECALCIFEROL 1,000 UNIT TAB PO SCH (09:53)
[2019-05-31] MEDS: CALCITRIOL 0.25 MCG CAP PO SCH (09:53)
[2019-05-31] MEDS: ALLOPURINOL 100 MG TAB PO SCH (09:53)
--- NOTE | 2019-05-31 10:40 | P.NPCON ---
History of Present Illness - Reason for Consult acute renal failure, chronic renal failure - History of Present Illness Reason for consultation: Acute kidney injury on chronic kidney disease History of present illness: Patient is a 88-year-old male seen in consultation for acute kidney injury on chronic kidney disease. Patient has chronic kidney disease stage III with baseline creatinine in the range of 1.3-1.6 secondary to nephrosclerosis. Patient presented to the hospital due to syncopal episode. According to the family, the patient fell 3 times in the last 10 days. His most recent fall was on Thursday when he was having breakfast and collapsed on the table. Patient lost consciousness for about 2 minutes. According to family his blood pressure was in the systolic 60s when it was checked after his fall. Patient's blood pressure yesterday was as low as 79/53. Patient's Bumex was held and he is receiving IV fluids. Creatinine was 1.87 on admission and is 1.7 today. Patient's orthostatic vitals checked yesterday were negative. He is currently resting in bed. No vomiting or diarrhea. Denies use of nonsteroidals. No history of diabetes. No cough. No fever or chills. He's also had pauses in his heart rate. Patient's been somewhat bradycardic with his heart rate staying in the 50s and low 60s. Vital signs are stable. General: The patient appeared well nourished and normally developed. HEENT: Head exam is unremarkable. Neck is without jugular venous distension. LUNGS: Lungs are clear to auscultation and percussion. Breath sounds decreased. HEART: Rate and Rhythm are regular. First and second heart sounds normal. No murmurs, rubs or gallops. ABDOMEN: Abdominal exam reveals normal bowel sounds. Non-tender and non- distended. No evidence of peritonitis. EXTREMITITES: No clubbing, cyanosis, or edema. Past Medical History Past Medical History: Atrial Fibrillation, Coronary Artery Disease (CAD), Chest Pain / Angina, Dementia, Hearing Disorder / Deafness, Hyperlipidemia, Myocardial Infarction ([place]), Osteoarthritis (OA), Renal Disease, Syncope Additional Past Medical History / Comment(s): DJD, AAA-NOT SURE OF SIZE, "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 Low blood pressure. Does get confused @ times. Last Myocardial Infarction Date:: 2000 History of Any Multi-Drug Resistant Organisms: None Reported Past Surgical History: Heart Catheterization With Stent, Joint Replacement, Orthopedic Surgery Additional Past Surgical History / Comment(s): LEFT KNEE REPLACED, YOSELIN CATARACTS, CARDIAC STENTS X2, 3rd stent placed 03/31/2017"LT KIDNEY BX-NEG", colonoscopy. Past Anesthesia/Blood Transfusion Reactions: Motion Sickness Date of Last Stent Placement:: 2016 Past Psychological History: No Psychological Hx Reported Smoking Status: Never smoker Past Alcohol Use History: None Reported Past Drug Use History: None Reported - Past Family History Mother Additional Family Medical History / Comment(s): "HEART PROBLEMS" Father Family Medical History: Pneumonia Medications and Allergies Home Medications Medication Instructions Recorded Confirmed Type Nitroglycerin Sl Tabs [Nitrostat] 0.4 mg SUBLINGUAL Q5M PRN #100 tab 07/18/16 05/30/19 Rx Allopurinol [Zyloprim] 100 mg PO DAILY 03/27/17 05/30/19 History Rivaroxaban [Xarelto] 15 mg PO W/SUPPER #90 tab 04/01/17 05/30/19 Rx Bumetanide [BUMEX] 0.25 mg PO DAILY 10/25/18 05/30/19 History Cholecalciferol [Vitamin D3 (25 1,000 unit PO DAILY 10/25/18 05/30/19 History Mcg = 1000 Iu)] Donepezil [Aricept] 10 mg PO HS 10/25/18 05/30/19 History Amiodarone [Cordarone] 100 mg PO DAILY 05/30/19 05/30/19 History Aspirin EC [Ecotrin Low Dose] 81 mg PO HS 05/30/19 05/30/19 History Calcitriol [Rocaltrol] 0.25 mcg PO TUTHSA 05/30/19 05/30/19 History Midodrine [ProAmatine] 5 mg PO TID 05/30/19 05/30/19 History Allergies Allergy/AdvReac Type Severity Reaction Status Date / Time flecainide Allergy Swelling Verified 05/30/19 16:55 steroids Allergy Rapid Uncoded 05/30/19 12:18 Heart Rate Physical Exam Vitals: Vital Signs Temp Pulse Pulse Pulse Resp BP BP 05/31/19 08:00 97.5 F L 57 L 16 101/61 05/31/19 04:00 97.3 F L 57 L 18 135/88 05/31/19 00:00 98.5 F 61 18 137/86 05/30/19 20:00 97.3 F L 57 L 57 L 18 154/87 05/30/19 16:00 97.5 F L 66 16 159/74 05/30/19 14:39 53 L 18 143/93 05/30/19 12:18 97.4 F L 64 18 79/53 BP BP Pulse Ox 05/31/19 08:00 96 05/31/19 04:00 97 05/31/19 00:00 98 05/30/19 20:00 97 05/30/19 16:00 152/69 176/92 98 05/30/19 14:39 96 05/30/19 12:18 97 Intake and Output 05/30/19 05/31/19 05/31/19 22:59 06:59 14:59 Intake Total 120 240 Output Total 210 Balance 120 -210 240 Intake: Oral 120 240 Output: Urine 210 Other: # Voids 0 1 1 Weight 78.471 kg 75.8 kg Results - Lab Results Most recent lab results Calcium 9.1 mg/dL (8.4-10.2) 05/31/19 05:52 Magnesium 2.2 mg/dL (1.6-2.3) 05/30/19 12:48 05/31/19 05:52 05/31/19 05:52 Assessment and Plan Plan: Assessment: 1. Acute kidney injury mostly prerenal secondary to bradycardia and diuresis. Creatinine 1.87 on admission and is 1.7 today. 2. Chronic kidney disease stage III Baseline creatinine in the range of 1.3-1.6 secondary to nephrosclerosis. 3. Syncopal episode. Possibly related to bradycardia vs hypotension. 4. Chronic hypotension maintained on midodrine. 5. Chronic kidney disease mineral bone disease maintained on calcitriol. 6. Chronic systolic CHF with ejection fraction of 45 with 50%. Plan: Decreased rate of normal saline to 50 mL an hour. Hold Bumex. Repeat orthostatics today. Avoid nephrotoxins. Continue to monitor renal function and urine output. Follow-up echocardiogram. Thank you for the consultation. I will continue to follow the patient with you during his hospital stay.
--- NOTE | 2019-05-31 12:09 | P.PN ---
Subjective Patient being interviewed by neurology. Patient had assessment by cardiology 2- D echo ordered. Patient evaluated by nephrology at baseline Objective - Vital Signs Vital signs: Vital Signs Temp 97.3 F L 05/31/19 11:20 Pulse 59 L 05/31/19 11:28 Resp 16 05/31/19 11:20 BP 132/80 05/31/19 11:20 Pulse Ox 97 05/31/19 11:20 Intake & Output 05/30/19 05/31/19 05/31/19 18:59 06:59 18:59 Intake Total 120 240 Output Total 210 50 Balance 120 -210 190 Weight 78.471 kg 75.8 kg Intake: Oral 120 240 Output: Urine 210 50 Other: Voiding Method Urinal Diaper # Voids 0 1 1 - Constitutional General appearance: Present: mild distress - EENT Eyes: Present: PERRLA Ears: bilateral: normal - Neck Neck: Present: normal ROM - Respiratory Respiratory: bilateral: CTA - Cardiovascular Rhythm: irregularly irregular - Gastrointestinal General gastrointestinal: Present: soft - Integumentary Integumentary: Present: normal - Neurologic Neurologic: Present: CNII-XII intact - Musculoskeletal Musculoskeletal: Present: generalized weakness - Psychiatric Psychiatric: Present: A&O x's 3 - Labs CBC & Chem 7: 05/31/19 05:52 05/31/19 05:52 Labs: Abnormal Lab Results - Last 24 Hours (Table) 05/30/19 05/30/19 05/30/19 Range/Units 12:48 12:48 12:48 RBC 4.06 L (4.30-5.90) m/uL Hgb 11.8 L (13.0-17.5) gm/dL Hct 38.6 L (39.0-53.0) % MCHC 30.7 L (31.0-37.0) g/dL RDW 16.0 H (11.5-15.5) % Lymphocytes # 0.9 L (1.0-4.8) k/uL PT 14.1 H (9.0-12.0) sec INR 1.4 H (<1.2) APTT 33.9 H (22.0-30.0) sec BUN 44 H (9-20) mg/dL Creatinine 1.87 H (0.66-1.25) mg/dL Glucose 148 H (74-99) mg/dL Alkaline Phosphatase 146 H (38-126) U/L Troponin I (0.000-0.034) ng/mL Urine Blood (Negative) Urine Mucus (None) /hpf 05/30/19 05/30/19 05/30/19 Range/Units 12:48 15:15 18:43 RBC (4.30-5.90) m/uL Hgb (13.0-17.5) gm/dL Hct (39.0-53.0) % MCHC (31.0-37.0) g/dL RDW (11.5-15.5) % Lymphocytes # (1.0-4.8) k/uL PT (9.0-12.0) sec INR (<1.2) APTT (22.0-30.0) sec BUN (9-20) mg/dL Creatinine (0.66-1.25) mg/dL Glucose (74-99) mg/dL Alkaline Phosphatase (38-126) U/L Troponin I 0.107 H* 0.092 H* (0.000-0.034) ng/mL Urine Blood Small H (Negative) Urine Mucus Rare H (None) /hpf 05/31/19 05/31/19 05/31/19 Range/Units 00:24 05:52 05:52 RBC 3.87 L (4.30-5.90) m/uL Hgb 11.3 L (13.0-17.5) gm/dL Hct 36.6 L (39.0-53.0) % MCHC 30.8 L (31.0-37.0) g/dL RDW 15.9 H (11.5-15.5) % Lymphocytes # (1.0-4.8) k/uL PT (9.0-12.0) sec INR (<1.2) APTT (22.0-30.0) sec BUN 38 H (9-20) mg/dL Creatinine 1.70 H (0.66-1.25) mg/dL Glucose (74-99) mg/dL Alkaline Phosphatase (38-126) U/L Troponin I 0.099 H* (0.000-0.034) ng/mL Urine Blood (Negative) Urine Mucus (None) /hpf Assessment and Plan Plan: Assessment Syncope 3 Chest pain with elevated troponin cardiology reports from renal insufficiency Hypertension Atrial fibrillation persistent Dementia Coronary artery disease with DC and stents Heart of hearing Hyperlipidemia Osteoarthritis Chronic renal disease stage III Plan 2-D echo ordered Continue consultation with cardiology neurology and nephrology
[2019-05-31] MEDS ORDERED: HEPARIN SODIUM,PORCINE 5,000 UNIT/ML 1 ML VIAL IV PRN (15:07)
[2019-05-31 15:50] LABS: Basophils # (A) 0.1 k/uL (0-0.2); Basophils % (A) 1 %; Eosinophils # (A) 0.4 k/uL (0-0.7); Eosinophils % (A) 6 %; HCT 36.9 % (39.0-53.0); HGB 11.2 gm/dL (13.0-17.5); Hypochromasia Moderate; Lymphocytes # (A) 1.1 k/uL (1.0-4.8); Lymphocytes % (A) 16 %; MCH 28.7 pg (25.0-35.0); MCHC 30.3 g/dL (31.0-37.0); MCV 94.9 fL (80.0-100.0); Mean Platelet Volume 9.4; Monocytes # (A) 0.4 k/uL (0-1.0); Monocytes % (A) 6 %; Neutrophils # (A) 4.5 k/uL (1.3-7.7); Neutrophils % (A) 69 %; Platelet Count 149 k/uL (150-450); RBC 3.88 m/uL (4.30-5.90); RDW 15.9 % (11.5-15.5); WBC 6.5 k/uL (3.8-10.6)
[2019-05-31 15:58] LABS: INR 1.4 (<1.2); Partial Thromboplastin Time 34.4 sec (22.0-30.0); Prothrombin Time 13.7 sec (9.0-12.0)
--- NOTE | 2019-05-31 17:50 | P.CRDCN ---
History of Present Illness History of present illness: This is Melissa Uribe PA-C dictating an EP consult on this patient The patient was interviewed and examined by me as well as by Dr. Kyle Case discussed with Dr. Kyle and he agrees with the plan of care HPI Patient is an 88-year-old male with a past medical history significant for persistent atrial fibrillation, abdominal aortic aneurysm, and CAD status post stenting who presented after syncopal episode. He is a patient of Dr. De Leon. The patient is somewhat poor historian and his history was obtained from his who is at the bedside as well as from the chart. Patient's states he has had several syncopal episodes over the last few months. It was believed to be due to low blood pressure and he is being treated with Midodrine. He has had also had a history of pauses and bradycardia and therefore his metoprolol was stopped some time ago. He continued to have syncopal episodes despite this. He has had 3 syncopal episodes within the last week. Two of them occurred shortly after he stood up and he was walking with his walker. Those episodes were very brief and he regained consciousness within seconds. They usually occur in the morning. Per his he is dizzy all the time but denies any other preceding symptoms such as palpitations, chest pain, shortness of breath. The most recent episode occurred while he was sitting. He was sitting at the kitchen table, waiting for breakfast. He had not eaten yet. He told his that his "head felt funny" and then his head dropped. His reports he was out for several minutes. When he regained consciousness he complained of a headache that felt like a tight band across his forehead. Upon arrival to the emergency department his blood pressure was 79/53 and his pulse was 64. EKG showed atrial fibrillation with nonspecific ST changes, rate 61 bpm. Labs showed hemoglobin 11.8, potassium 4.4, BUN 44, creatinine 1.87. His amiodarone was stopped and he was admitted for further evaluation. We have been asked to see him because he had some episodes of bradycardia in the 30s and pauses on telemetry. Patient seen and examined resting in bed. Currently denies any chest pain, shortness of breath, dizziness, palpitations. ROS: No fevers, chills or rigors, no cough, phlegm or expectoration, no nausea, vomiting or diarrhea, no hematuria, dysuria, no musculoskeletal complaints, no strokes or seizures, no skin lesions. EXAMINATION: Patient is afebrile, pulse in the 60s, respirations 16, blood pressure in the 150s over 70s, oxygen saturation 98% on room air Orthostatic vital signs have been positive with a 20 mmHg systolic drop from supine to standing Patient seen and examined resting in bed, no acute distress Lungs are clear to auscultation bilaterally, no wheezing rhonchi or crackles Heart is irregular, no audible murmurs rubs or gallops. 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, and the second is sudden bradycardia and pauses, which is likely what caused his most recent episode of syncope that occurred while he was sitting Persistent atrial fibrillation, anticoagulated with Xarelto History of CAD status post stenting Abdominal aortic aneurysm PLAN: check TSH Detailed discussion with the patient and his regarding treatment options Discussed the treatment for dysautonomia and how Midodrine should be taken, recommend taking it as soon as the patient wakes up and lay down for half an hour before trying to get up in order to allow the medication time to work, educated the patient and his that it lasts for about 4-5 hours and should be taken only at times when the patient is active and trying to stand and walk around, he should not take it before bed Recommend a normal salt diet and normal fluid intake Minimize use of Bumex Stop amiodarone completely We would also recommend implantation of a permanent pacemaker to prevent sudden bradycardia and pauses, we will obtain and review all of his records from the office to see if he is truly in persistent atrial fibrillation or if he has paroxysmal atrial fibrillation, if he does we would likely implant a dual- chamber pacemaker Detailed discussion with the patient and his about the risks and potential complications of the procedure including cardiac puncture and lung puncture as well as infection We also discussed with the patient and his that the pacemaker will not help solve the problems with his blood pressure Past Medical History Past Medical History: Atrial Fibrillation, Coronary Artery Disease (CAD), Chest Pain / Angina, Dementia, Hearing Disorder / Deafness, Hyperlipidemia, Myocardial Infarction ([place]), Osteoarthritis (OA), Renal Disease, Syncope Additional Past Medical History / Comment(s): DJD, AAA-NOT SURE OF SIZE, "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 Low blood pressure. Does get confused @ times. Last Myocardial Infarction Date:: 2000 History of Any Multi-Drug Resistant Organisms: None Reported Past Surgical History: Heart Catheterization With Stent, Joint Replacement, Orthopedic Surgery Additional Past Surgical History / Comment(s): LEFT KNEE REPLACED, YOSELIN CATARACTS, CARDIAC STENTS X2, 3rd stent placed 03/31/2017"LT KIDNEY BX-NEG", colonoscopy. Past Anesthesia/Blood Transfusion Reactions: Motion Sickness Date of Last Stent Placement:: 2016 Past Psychological History: No Psychological Hx Reported Smoking Status: Never smoker Past Alcohol Use History: None Reported Past Drug Use History: None Reported - Past Family History Mother Additional Family Medical History / Comment(s): "HEART PROBLEMS" Father Family Medical History: Pneumonia Medications and Allergies Home Medications Medication Instructions Recorded Confirmed Type Nitroglycerin Sl Tabs [Nitrostat] 0.4 mg SUBLINGUAL Q5M PRN #100 tab 07/18/16 05/30/19 Rx Allopurinol [Zyloprim] 100 mg PO DAILY 03/27/17 05/30/19 History Rivaroxaban [Xarelto] 15 mg PO W/SUPPER #90 tab 04/01/17 05/30/19 Rx Bumetanide [BUMEX] 0.25 mg PO DAILY 10/25/18 05/30/19 History Cholecalciferol [Vitamin D3 (25 1,000 unit PO DAILY 10/25/18 05/30/19 History Mcg = 1000 Iu)] Donepezil [Aricept] 10 mg PO HS 10/25/18 05/30/19 History Amiodarone [Cordarone] 100 mg PO DAILY 05/30/19 05/30/19 History Aspirin EC [Ecotrin Low Dose] 81 mg PO HS 05/30/19 05/30/19 History Calcitriol [Rocaltrol] 0.25 mcg PO TUTHSA 05/30/19 05/30/19 History Midodrine [ProAmatine] 5 mg PO TID 05/30/19 05/30/19 History Allergies Allergy/AdvReac Type Severity Reaction Status Date / Time flecainide Allergy Swelling Verified 05/30/19 16:55 steroids Allergy Rapid Uncoded 05/30/19 12:18 Heart Rate Physical Exam Vitals: Vital Signs Temp Pulse Pulse Resp BP BP BP 05/31/19 15:41 58 L 05/31/19 15:39 97.5 F L 58 L 16 153/77 05/31/19 11:28 59 L 05/31/19 11:20 97.3 F L 59 L 16 132/80 05/31/19 10:37 113/69 119/63 149/89 05/31/19 08:55 57 L 18 05/31/19 08:00 97.5 F L 57 L 16 101/61 05/31/19 04:00 97.3 F L 57 L 18 135/88 05/31/19 00:00 98.5 F 61 18 137/86 05/30/19 20:00 97.3 F L 57 L 57 L 18 154/87 Pulse Ox 05/31/19 15:41 05/31/19 15:39 95 05/31/19 11:28 05/31/19 11:20 97 05/31/19 10:37 05/31/19 08:55 05/31/19 08:00 96 05/31/19 04:00 97 05/31/19 00:00 98 05/30/19 20:00 97 Intake and Output 05/31/19 05/31/19 05/31/19 06:59 14:59 22:59 Intake Total 490 240 Output Total 210 50 325 Balance -210 440 -85 Intake: Oral 490 240 Output: Urine 210 50 325 Other: Voiding Method Urinal Diaper # Voids 1 1 Weight 75.8 kg Results 05/31/19 15:27 05/31/19 05:52 Cardiac Enzymes 05/30/19 05/31/19 Range/Units 18:43 00:24 Troponin I 0.092 H* 0.099 H* (0.000-0.034) ng/mL Coagulation 05/31/19 Range/Units 15:27 PT 13.7 H (9.0-12.0) sec APTT 34.4 H (22.0-30.0) sec CBC 05/31/19 05/31/19 Range/Units 05:52 15:27 WBC 5.3 6.5 (3.8-10.6) k/uL RBC 3.87 L 3.88 L (4.30-5.90) m/uL Hgb 11.3 L 11.2 L (13.0-17.5) gm/dL Hct 36.6 L 36.9 L (39.0-53.0) % Plt Count 154 149 L (150-450) k/uL Comprehensive Metabolic Panel 05/31/19 Range/Units 05:52 Sodium 140 (137-145) mmol/L Potassium 4.3 (3.5-5.1) mmol/L Chloride 105 (98-107) mmol/L Carbon Dioxide 29 (22-30) mmol/L BUN 38 H (9-20) mg/dL Creatinine 1.70 H (0.66-1.25) mg/dL Glucose 76 (74-99) mg/dL Calcium 9.1 (8.4-10.2) mg/dL Current Medications Generic Name Dose Route Start Last Admin Trade Name Freq PRN Reason Stop Dose Admin Allopurinol 100 mg 05/31/19 09:00 05/31/19 09:53 Zyloprim PO 100 mg DAILY MYNOR Administration Aspirin 81 mg 05/30/19 21:00 05/30/19 22:53 Aspirin PO 81 mg HS MYNOR Administration Bumetanide 0.25 mg 05/31/19 09:00 05/31/19 09:48 Bumetanide PO Not Given DAILY MYNOR Calcitriol 0.25 mcg 05/31/19 09:00 05/31/19 09:53 Rocaltrol PO 0.25 mcg TUTHSA MYNOR Administration Cholecalciferol 1,000 unit 05/31/19 09:00 05/31/19 09:53 Vitamin D3 (25 Mcg = 1000 Iu) PO 1,000 unit DAILY MYNOR Administration Donepezil HCl 10 mg 05/30/19 21:00 05/30/19 22:53 Aricept PO 10 mg HS MYNOR Administration Heparin Sodium (Porcine) 0 unit 05/31/19 15:07 Heparin IV PER PROTOCOL PRN Low PTT Protocol Heparin Sodium/Sodium Chloride 250 mls @ 9.096 mls/hr 06/01/19 15:15 25,000 unit/ Sodium Chloride IV .Q24H MYNOR Protocol 12 UNITS/KG/HR Midodrine 5 mg 05/30/19 17:30 05/31/19 17:10 Proamatine PO 5 mg AC-TID MYNOR Administration Naloxone HCl 0.2 mg 05/30/19 15:08 Narcan IV Q2M PRN Opioid Reversal Nitroglycerin 0.4 mg 05/30/19 17:07 Nitrostat SUBLINGUAL Q5M PRN Chest Pain Intake and Output 05/31/19 05/31/19 05/31/19 06:59 14:59 22:59 Intake Total 490 240 Output Total 210 50 325 Balance -210 440 -85 Intake: Oral 490 240 Output: Urine 210 50 325 Other: Voiding Method Urinal Diaper # Voids 1 1 Weight 75.8 kg 05/31/19 15:27 05/31/19 05:52
[2019-05-31] MEDS ORDERED: RIVAROXABAN 15 MG TAB PO STA (17:55)
[2019-05-31 19:26] LABS: T4, Free (Free Thyroxine) 1.46 ng/dL (0.78-2.19)
[2019-05-31] MEDS: DONEPEZIL 10 MG TAB PO SCH (21:32)
[2019-05-31] MEDS: ASPIRIN 81 MG PO SCH (21:32)
[2019-06-01] MEDS: MIDODRINE 5 MG TAB PO SCH ×3 (06:37→16:08)
[2019-06-01 07:07] LABS: Anisocytosis Slight; Basophils # (A) 0.1 k/uL (0-0.2); Basophils % (A) 1 %; Eosinophils # (A) 0.3 k/uL (0-0.7); Eosinophils % (A) 4 %; HCT 36.3 % (39.0-53.0); HGB 11.4 gm/dL (13.0-17.5); Hypochromasia Slight; Lymphocytes % (A) 15 %; MCH 29.8 pg (25.0-35.0); MCHC 31.3 g/dL (31.0-37.0); MCV 95.1 fL (80.0-100.0); Mean Platelet Volume 8.9; Monocytes # (A) 0.4 k/uL (0-1.0); Monocytes % (A) 6 %; Neutrophils # (A) 5.1 k/uL (1.3-7.7); Neutrophils % (A) 73 %; Platelet Count 133 k/uL (150-450); RBC 3.82 m/uL (4.30-5.90); WBC 7.1 k/uL (3.8-10.6)
[2019-06-01 07:12] LABS: Potassium 4.7 mmol/L (3.5-5.1)
[2019-06-01] MEDS ORDERED: SODIUM CHLORIDE 0.9% 1,000 ML IV SCH ×4 (08:00→09:00)
[2019-06-01] MEDS: CHOLECALCIFEROL 1,000 UNIT TAB PO SCH (08:03)
[2019-06-01] MEDS: ALLOPURINOL 100 MG TAB PO SCH (08:03)
[2019-06-01] MEDS: BUMETANIDE 0.5 MG TABLET PO SCH (08:03)
--- NOTE | 2019-06-01 09:23 | P.PN ---
Subjective Patient is seen in follow-up for acute kidney injury on chronic kidney disease. Renal function better. Complains of dizziness with movement. No vomiting or diarrhea. Vital signs are stable. General: The patient appeared well nourished and normally developed. HEENT: Head exam is unremarkable. Neck is without jugular venous distension. LUNGS: Lungs are clear to auscultation and percussion. Breath sounds decreased. HEART: Rate and Rhythm are regular. First and second heart sounds normal. No murmurs, rubs or gallops. ABDOMEN: Abdominal exam reveals normal bowel sounds. Non-tender and non- distended. No evidence of peritonitis. EXTREMITITES: No clubbing, cyanosis, or edema. Objective - Vital Signs Vital signs: Vital Signs Temp 98.3 F 06/01/19 08:00 Pulse 61 06/01/19 08:00 Resp 18 06/01/19 08:00 BP 128/87 06/01/19 08:00 Pulse Ox 96 06/01/19 08:00 Intake & Output 05/31/19 06/01/19 06/01/19 18:59 06:59 18:59 Intake Total 730 Output Total 375 180 Balance 355 -180 Weight 80 kg Intake: Oral 730 Output: Urine 375 180 Other: Voiding Method Urinal Urinal Diaper Diaper Incontinent # Voids 1 1 - Labs CBC & Chem 7: 06/01/19 06:01 06/01/19 06:01 Labs: Abnormal Lab Results - Last 24 Hours (Table) 05/31/19 05/31/19 05/31/19 Range/Units 05:52 15:27 15:27 RBC 3.88 L (4.30-5.90) m/uL Hgb 11.2 L (13.0-17.5) gm/dL Hct 36.9 L (39.0-53.0) % MCHC 30.3 L (31.0-37.0) g/dL RDW 15.9 H (11.5-15.5) % Plt Count 149 L (150-450) k/uL PT 13.7 H (9.0-12.0) sec INR 1.4 H (<1.2) APTT 34.4 H (22.0-30.0) sec Chloride (98-107) mmol/L BUN (9-20) mg/dL Creatinine (0.66-1.25) mg/dL TSH 6.030 H (0.465-4.680) mIU/L 06/01/19 06/01/19 Range/Units 06:01 06:01 RBC 3.82 L (4.30-5.90) m/uL Hgb 11.4 L (13.0-17.5) gm/dL Hct 36.3 L (39.0-53.0) % MCHC (31.0-37.0) g/dL RDW 16.0 H (11.5-15.5) % Plt Count 133 L (150-450) k/uL PT (9.0-12.0) sec INR (<1.2) APTT (22.0-30.0) sec Chloride 109 H (98-107) mmol/L BUN 35 H (9-20) mg/dL Creatinine 1.57 H (0.66-1.25) mg/dL TSH (0.465-4.680) mIU/L Assessment and Plan Plan: Assessment: 1. Acute kidney injury mostly prerenal secondary to bradycardia and diuresis. Creatinine 1.87 on admission and is 1.57 today. No proteinuria on UA. 2. Chronic kidney disease stage III Baseline creatinine in the range of 1.3-1.6 secondary to nephrosclerosis. 3. Syncopal episode. Possibly related to bradycardia vs hypotension. Cardiology following. Potential pacemaker this admission. 4. Chronic hypotension maintained on midodrine. 5. Chronic kidney disease mineral bone disease maintained on calcitriol. 6. Chronic systolic CHF with ejection fraction of 45-50%. Plan: Hep-Lock IV fluids. Discontinue Bumex. Continue to monitor orthostatics. Avoid nephrotoxins. Continue to monitor renal function and urine output.
--- NOTE | 2019-06-01 10:51 | P.CNNES ---
History of Present Illness Consult date: 05/31/19 Reason for Consult: Syncopal episode History of Present Illness: HISTORY OF PRESENT ILLNESS: Thank you for allowing me to evaluate Ms. Liudmila Lara. Ms. Lara is an 88 year-old man with PMhx of a.fib, CAD, chest pain, dementia, hearing deficit, HLD, VT, osteoarthritis, presented to [facility] for a syncopal episode. Patient was at a table, waiting for breakfast, when patient suddenly lost consciousness and fell forward. Patient came back to baseline mental status within a couple of minutes. is at bedside. States that there was no tongue biting, urinary/bowel incontinence. Patient does have some shakine ss after these episodes, but goes away. During these shaking episodes, patient is able to answer questions appropriately. Denies any recent sickness, nausea, vomiting, vision changes, weakness, numbness or tingling. states that patient has had similar episodes before, patient fell while he was walking with his walker. is not sure if he lost consciousness, but even if he did, he may have lost consciousness for a few seconds. Patient has had issues with blood pressure. On the day he fell forwards at the table, measured his blood pressure and it was in the 60s-70s. Denies any history of stroke. Patient has been on anticoagulation for many years. lost consciousness while walking with his walker. Patient endorsing some chest discomfort for the past week and increased fatigue. PAST MEDICAL HISTORY: a.fib, CAD, chest pain, dementia, hearing deficit, HLD, VT, osteoarthritis PAST SURGICAL HISTORY: Heart cath with stent, L knee replacement, b/l cataract surgery HOME MEDICATIONS: Allopurinol, Bumex, Vitamin D, donepezil, Xarelto, amiodarone, calcitriol, ASA, midodrine ALLERGIES: Flecainide, steroids SOCIAL HISTORY: Never smoker. FAMILY HISTORY: Mother with "heart problems" REVIEW OF SYSTEMS: The 14 systems are reviewed and no additional points are identified compared to the review of systems documented history and physical PHYSICAL EXAMINATION: VITAL SIGNS: T 97.5 HR 57 RR 16 BP 101/61 O2 sat 96% on RA (when patient first arrived, BP was 79/53) GEN.: NAD, pleasant and cooperative HEENT: NCAT, sclera without icterus NECK: Supple SKIN AND EXTREMITIES: Warm to touch, no edema NEURO: MENTAL STATUS: Patient alert and oriented to self, place, time. Able to name the current president. Speech fluent, able to name and repeat, following all commands readily. No right and left disorientation, neglect. CRANIAL NERVES II THROUGH XII: II: Pupils are equal and reactive to light symmetrically. No afferent pupillary defect. Visual callejas are intact. III, IV, : No ptosis. Extraocular movements full. No nystagmus. V: Facial sensation intact from V1-3. VII. Mild facial asymmetry. VIII: Hearing intact to finger rub bilaterally. IX, X: Symmetric palate elevation. XI: Shoulder shrug intact. XII: Tongue midline without fasciculation or atrophy. MOTOR: Normal bulk/tone. No pronator drift or tremor. Strength is 5/5 throughout all 4 extremities. SENSORY: Intact to light touch in all 4 extremities. REFLEXES: 2+ throughout. Toes are downgoing. COORDINATION: Finger to nose intact. No dysmetria. GAIT: not assessed DIAGNOSTIC TESTING: LABORATORY: WBC 5.3 Hgb 11.3 Platelet 154 Na 140 K 4.3 Cl 105 CO2 29 BUN 38 Cr 1.70 AST 44 ALT 34 AlkPhos 146 Troponin 0.107->0.092->0.099 urinalysis negative IMAGING: CT Head w/o contrast 10/25/2018: Cerebral atrophy. No acute intracranial abnormality ASSESSMENT: 88 year-old man with PMhx of a.fib, CAD, chest pain, dementia, hearing deficit, HLD, VT, osteoarthritis, presented to [facility] for a syncopal episode. Patient with positive orthostatic pressure and was found with very low blood pressure. Pt's episodes likely cardiac in etiology. However, patient had the episodes that was followed by some "shakiness," although not exactly rhythmic like. Cannot rule out seizure. RECOMMENDATIONS: 1. will obtain routine EEG 2. will follow up final EEG read; if negative, Neurology will sign off. Please call with additional questions or concerns. Past Medical History Past Medical History: Atrial Fibrillation, Coronary Artery Disease (CAD), Chest Pain / Angina, Dementia, Hearing Disorder / Deafness, Hyperlipidemia, Myocardial Infarction (VT), Osteoarthritis (OA), Renal Disease, Syncope Additional Past Medical History / Comment(s): DJD, AAA-NOT SURE OF SIZE, "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 Low blood pressure. Does get confused @ times. Last Myocardial Infarction Date:: 2000 History of Any Multi-Drug Resistant Organisms: None Reported Past Surgical History: Heart Catheterization With Stent, Joint Replacement, Orthopedic Surgery Additional Past Surgical History / Comment(s): LEFT KNEE REPLACED, YOSELIN CATARACTS, CARDIAC STENTS X2, 3rd stent placed 03/31/2017"LT KIDNEY BX-NEG", colonoscopy. Past Anesthesia/Blood Transfusion Reactions: Motion Sickness Date of Last Stent Placement:: 2016 Past Psychological History: No Psychological Hx Reported Smoking Status: Never smoker Past Alcohol Use History: None Reported Past Drug Use History: None Reported - Past Family History Mother Additional Family Medical History / Comment(s): "HEART PROBLEMS" Father Family Medical History: Pneumonia Medications and Allergies Home Medications Medication Instructions Recorded Confirmed Type Nitroglycerin Sl Tabs [Nitrostat] 0.4 mg SUBLINGUAL Q5M PRN #100 tab 07/18/16 05/30/19 Rx Allopurinol [Zyloprim] 100 mg PO DAILY 03/27/17 05/30/19 History Rivaroxaban [Xarelto] 15 mg PO W/SUPPER #90 tab 04/01/17 05/30/19 Rx Bumetanide [BUMEX] 0.25 mg PO DAILY 10/25/18 05/30/19 History Cholecalciferol [Vitamin D3 (25 1,000 unit PO DAILY 10/25/18 05/30/19 History Mcg = 1000 Iu)] Donepezil [Aricept] 10 mg PO HS 10/25/18 05/30/19 History Amiodarone [Cordarone] 100 mg PO DAILY 05/30/19 05/30/19 History Aspirin EC [Ecotrin Low Dose] 81 mg PO HS 05/30/19 05/30/19 History Calcitriol [Rocaltrol] 0.25 mcg PO TUTHSA 05/30/19 05/30/19 History Midodrine [ProAmatine] 5 mg PO TID 05/30/19 05/30/19 History Allergies Allergy/AdvReac Type Severity Reaction Status Date / Time flecainide Allergy Swelling Verified 05/30/19 16:55 steroids Allergy Rapid Uncoded 05/30/19 12:18 Heart Rate Physical Examination - Vital Signs Vital Signs: Vital Signs Temp Pulse Pulse Pulse Resp BP BP 05/31/19 08:00 97.5 F L 57 L 16 101/61 05/31/19 04:00 97.3 F L 57 L 18 135/88 05/31/19 00:00 98.5 F 61 18 137/86 05/30/19 20:00 97.3 F L 57 L 57 L 18 154/87 05/30/19 16:00 97.5 F L 66 16 159/74 05/30/19 14:39 53 L 18 143/93 05/30/19 12:18 97.4 F L 64 18 79/53 BP BP Pulse Ox 05/31/19 08:00 96 05/31/19 04:00 97 05/31/19 00:00 98 05/30/19 20:00 97 05/30/19 16:00 152/69 176/92 98 05/30/19 14:39 96 05/30/19 12:18 97 Intake and Output 05/30/19 05/31/19 05/31/19 22:59 06:59 14:59 Intake Total 120 240 Output Total 210 Balance 120 -210 240 Intake: Oral 120 240 Output: Urine 210 Other: # Voids 0 1 1 Weight 78.471 kg 75.8 kg Results - Laboratory Findings CBC and BMP: 06/01/19 06:01 06/01/19 06:01 Abnormal Lab Findings: Abnormal Labs 05/30/19 05/30/19 05/30/19 12:48 12:48 12:48 RBC 4.06 L Hgb 11.8 L Hct 38.6 L MCHC 30.7 L RDW 16.0 H Lymphocytes # 0.9 L PT 14.1 H INR 1.4 H APTT 33.9 H BUN 44 H Creatinine 1.87 H Glucose 148 H Alkaline Phosphatase 146 H Troponin I Urine Blood Urine Mucus 05/30/19 05/30/19 05/30/19 12:48 15:15 18:43 RBC Hgb Hct MCHC RDW Lymphocytes # PT INR APTT BUN Creatinine Glucose Alkaline Phosphatase Troponin I 0.107 H* 0.092 H* Urine Blood Small H Urine Mucus Rare H 05/31/19 05/31/19 05/31/19 00:24 05:52 05:52 RBC 3.87 L Hgb 11.3 L Hct 36.6 L MCHC 30.8 L RDW 15.9 H Lymphocytes # PT INR APTT BUN 38 H Creatinine 1.70 H Glucose Alkaline Phosphatase Troponin I 0.099 H* Urine Blood Urine Mucus
--- NOTE | 2019-06-01 11:26 | P.PN ---
Subjective Progress Note Date: 06/01/19 This is an 88-year-old gentleman with past medical history significant for persistent atrial fibrillation, abdominal aortic aneurysm, coronary artery disease with prior stent placement, hypertension, hyperlipidemia, presented to the hospital after experiencing a syncopal episode. Patient has had several s yncopal episodes. It was believed initially to be due to low blood pressure and the patient's being treated with midodrine. Patient was also noted to have significant pauses with associated bradycardia. Patient was seen in consultation yesterday evening by Dr. Kyle, adjustments were made on the timing of when the patient states his midodrine, he is also scheduled to undergo implantation of a permanent pacemaker tomorrow morning at 7 AM. The risks and benefits of the procedure were explained to the patient and his in detail. Objective - Vital Signs Vital signs: Vital Signs Temp 98.3 F 06/01/19 08:00 Pulse 61 06/01/19 11:10 Resp 18 06/01/19 08:00 BP 128/87 06/01/19 08:00 Pulse Ox 96 06/01/19 08:00 Intake & Output 05/31/19 06/01/19 06/01/19 18:59 06:59 18:59 Intake Total 730 Output Total 375 180 Balance 355 -180 Weight 80 kg Intake: Oral 730 Output: Urine 375 180 Other: Voiding Method Urinal Urinal Diaper Diaper Incontinent # Voids 1 1 - Exam PHYSICAL EXAMINATION: GENERAL: 88-year-old gentleman, lying in bed, comfortable at present, in no acute distress HEENT: Head is atraumatic, normocephalic. Pupils equal, round. Sclera anicteric. Conjunctiva are clear. Mucous membranes of the mouth are moist. Neck is supple. There is no elevated jugular venous pressure. No carotid bruit is heard. HEART EXAMINATION: S1 and S2 irregularly irregular CHEST EXAMINATION: Lungs are clear to auscultation and precussion. No chest wall tenderness is noted on palpation or with deep breathing. ABDOMEN: Soft, nontender. Bowel sounds are heard. No organomegaly noted. EXTREMITIES: 2+ peripheral pulses with no evidence of peripheral edema and no calf tenderness noted. NEUROLOGIC patient is awake, alert and oriented 2 . . - Labs CBC & Chem 7: 06/01/19 06:01 02/05/20 06:01 Labs: Abnormal Lab Results - Last 24 Hours (Table) 05/31/19 05/31/19 05/31/19 Range/Units 05:52 15:27 15:27 RBC 3.88 L (4.30-5.90) m/uL Hgb 11.2 L (13.0-17.5) gm/dL Hct 36.9 L (39.0-53.0) % MCHC 30.3 L (31.0-37.0) g/dL RDW 15.9 H (11.5-15.5) % Plt Count 149 L (150-450) k/uL PT 13.7 H (9.0-12.0) sec INR 1.4 H (<1.2) APTT 34.4 H (22.0-30.0) sec Chloride (98-107) mmol/L BUN (9-20) mg/dL Creatinine (0.66-1.25) mg/dL TSH 6.030 H (0.465-4.680) mIU/L 06/01/19 06/01/19 Range/Units 06:01 06:01 RBC 3.82 L (4.30-5.90) m/uL Hgb 11.4 L (13.0-17.5) gm/dL Hct 36.3 L (39.0-53.0) % MCHC (31.0-37.0) g/dL RDW 16.0 H (11.5-15.5) % Plt Count 133 L (150-450) k/uL PT (9.0-12.0) sec INR (<1.2) APTT (22.0-30.0) sec Chloride 109 H (98-107) mmol/L BUN 35 H (9-20) mg/dL Creatinine 1.57 H (0.66-1.25) mg/dL TSH (0.465-4.680) mIU/L Assessment and Plan Plan: IMPRESSION / ASSESSMENT: #1Recurrent syncopal episodes, likely secondary to 2 different etiologies, one is orthostatic hypotension, likely dysautonomia, and the second is sudden bradycardia and pauses, which is likely what caused his most recent episode of syncope that occurred while he was sitting #2Persistent atrial fibrillation, anticoagulated with Xarelto #3History of CAD status post stenting #4Abdominal aortic aneurysm #5 hypertension #6 hyperlipidemia Plan Patient is scheduled to undergo implantation of a permanent pacemaker tomorrow morning at [address] Kyle. The risks and benefits of the procedure were explained to the patient in detail. DNP note has been reviewed, I agree with a documented findings and plan of care. Patient was seen and examined.
--- NOTE | 2019-06-01 11:29 | P.PN ---
Subjective Recent resting in bed without complaint family at bedside. Patient was evaluated by cardiology and decision was made to insert pacemaker in the mor vikki. Patient was evaluated by neurology EEG ordered if negative neurology was signed off. Awaiting on results of echo. Patient has been followed by nephrology Objective - Vital Signs Vital signs: Vital Signs Temp 98.3 F 06/01/19 08:00 Pulse 61 06/01/19 11:10 Resp 18 06/01/19 08:00 BP 128/87 06/01/19 08:00 Pulse Ox 96 06/01/19 08:00 Intake & Output 05/31/19 06/01/19 06/01/19 18:59 06:59 18:59 Intake Total 730 Output Total 375 180 Balance 355 -180 Weight 80 kg Intake: Oral 730 Output: Urine 375 180 Other: Voiding Method Urinal Urinal Diaper Diaper Incontinent # Voids 1 1 - Constitutional General appearance: Present: mild distress - EENT Eyes: Present: PERRLA Ears: bilateral: normal - Neck Neck: Present: normal ROM - Respiratory Respiratory: bilateral: CTA - Cardiovascular Rhythm: irregularly irregular - Gastrointestinal General gastrointestinal: Present: normal bowel sounds, soft - Integumentary Integumentary: Present: normal - Neurologic Neurologic: Present: CNII-XII intact - Musculoskeletal Musculoskeletal: Present: generalized weakness - Psychiatric Psychiatric: Present: A&O x's 3 - Labs CBC & Chem 7: 06/01/19 06:01 06/01/19 06:01 Labs: Abnormal Lab Results - Last 24 Hours (Table) 05/31/19 05/31/19 05/31/19 Range/Units 05:52 15:27 15:27 RBC 3.88 L (4.30-5.90) m/uL Hgb 11.2 L (13.0-17.5) gm/dL Hct 36.9 L (39.0-53.0) % MCHC 30.3 L (31.0-37.0) g/dL RDW 15.9 H (11.5-15.5) % Plt Count 149 L (150-450) k/uL PT 13.7 H (9.0-12.0) sec INR 1.4 H (<1.2) APTT 34.4 H (22.0-30.0) sec Chloride (98-107) mmol/L BUN (9-20) mg/dL Creatinine (0.66-1.25) mg/dL TSH 6.030 H (0.465-4.680) mIU/L 06/01/19 06/01/19 Range/Units 06:01 06:01 RBC 3.82 L (4.30-5.90) m/uL Hgb 11.4 L (13.0-17.5) gm/dL Hct 36.3 L (39.0-53.0) % MCHC (31.0-37.0) g/dL RDW 16.0 H (11.5-15.5) % Plt Count 133 L (150-450) k/uL PT (9.0-12.0) sec INR (<1.2) APTT (22.0-30.0) sec Chloride 109 H (98-107) mmol/L BUN 35 H (9-20) mg/dL Creatinine 1.57 H (0.66-1.25) mg/dL TSH (0.465-4.680) mIU/L Assessment and Plan Plan: Assessment Syncope secondary to bradycardia hypotension Chest pain troponins positive 3 explained as renal insufficiency Atrial fibrillation persistent Coronary artery disease with DC and stents Dementia Hard of hearing Hyperlipidemia Osteoarthritis Chronic renal disease stage III Plan EEG ordered neurology will sign off if negative Continue consultation with cardiology Continue consultation with nephrology Pacemaker scheduled for morning patient to hold Xarelto and aspirin
[2019-06-01] MEDS ORDERED: HEPARIN SOD,PORK IN 0.45% NACL 25,000 UNIT in 0.45% NACL 1 250ML.BAG IV SCH (15:15)
[2019-06-01] MEDS ORDERED: RIVAROXABAN 15 MG TAB PO SCH (17:30)
[2019-06-01] MEDS: DONEPEZIL 10 MG TAB PO SCH (20:27)
[2019-06-01] MEDS: ASPIRIN 81 MG PO SCH (20:27)
--- NOTE | 2019-06-01 22:02 | EEG ---
ELECTROENCEPHALOGRAM REPORT DATE OF PROCEDURE: 06/01/2019 ELECTROENCEPHALOGRAM (EEG) REPORT: TECHNIQUE: A routine 18-channel EEG was performed with video using the 10/20 international electrode placement system. HISTORY: Atrial fibrillation, coronary artery disease, dementia. Patient had a witnessed syncopal episode. Patient was sitting at the table and had a sudden loss of consciousness. Patient came back to baseline within a couple of minutes. In addition, patient had some shaking. CURRENT MEDICATIONS: Zyloprim, Xarelto, ProAmatine, Aricept, aspirin, Rocaltrol. STUDY DURATION: 21 minutes. FINDINGS: Please note that interpretation was performed at 5-microvolt sensitivity. BACKGROUND: The background activity consisted of unsustained 6-7 Hz rhythmic waveforms. ACTIVATION: Hyperventilation: Not performed. Photic stimulation: No driving seen. Sleep: Drowsy. ABNORMALITIES: 1. Frequent frontally predominant delta range slowing was seen. 2. Diffuse 4-6 Hz theta range slowing was seen. IMPRESSION: Abnormal EEG. The frontally predominant delta range slowing mentioned above and the diffuse theta range slowing mentioned above are not epileptiform in nature. In combination with the slow background, these findings indicate moderate diffuse cerebral dysfunction as may be seen in a toxometabolic encephalopathy. No seizures were recorded. No epileptiform activity was present. Please note that one channel of this EEG was dedicated to EKG, at times it did not demonstrate a sinus rhythm. MMODL / IJN: [id number] / MTDD
[2019-06-02 06:29] LABS: Anisocytosis Slight; HCT 35.5 % (39.0-53.0); HGB 11.9 gm/dL (13.0-17.5); Hypochromasia Slight; MCH 31.7 pg (25.0-35.0); MCHC 33.6 g/dL (31.0-37.0); MCV 94.4 fL (80.0-100.0); Mean Platelet Volume 8.3; Platelet Count 159 k/uL (150-450); RBC 3.76 m/uL (4.30-5.90); RDW 16.1 % (11.5-15.5); WBC 9.5 k/uL (3.8-10.6)
[2019-06-02] MEDS: MIDODRINE 5 MG TAB PO SCH ×3 (06:42→17:00)
[2019-06-02] MEDS ORDERED: ceFAZolin 1,000 MG in SODIUM CHLORIDE 0.9% IRRIGATIO 250 ML IRRIGATION ONE ×2 (06:45→12:56)
[2019-06-02] MEDS ORDERED: SODIUM CHLORIDE 0.9% 500 ML 500 ML IV ONE (06:45)
[2019-06-02 06:47] LABS: Band Neutrophils % 1 %; Eosinophils # (M) 0.38 k/uL (0-0.7); Lymphocytes # (M) 1.81 k/uL (1.0-4.8); Monocytes # (M) 0.67 k/uL (0-1.0); Neutrophils % (M) 69 %; Nucleated Red Blood Cells 0 /100 WBC (0-0); Total Cells Counted 100
[2019-06-02] MEDS ORDERED: IOPAMIDOL-370 50ML BTL INJ ONE (06:59)
[2019-06-02] MEDS ORDERED: ACETAMINOPHEN TAB 325 MG TAB PO PRN (07:12)
[2019-06-02] MEDS ORDERED: ACETAMINOPHEN IV (For NPO) 1,000 MG in EMPTY BAG 1 BAG IVPB ONE (07:12)
[2019-06-02] MEDS ORDERED: HYDROcodone/APAP 5-325MG 1 EACH TAB PO PRN (07:12)
[2019-06-02] MEDS ORDERED: LIDOCAINE 1% INJ 10MG/ML (20 ML MDV) ONE ×2 (07:18)
[2019-06-02] MEDS ORDERED: fentaNYL (PF) 50 MCG/ML 2 ML AMP ONE (07:23)
[2019-06-02] MEDS ORDERED: MIDAZOLAM 2 MG/2 ML VIAL IVP ONE (07:29)
[2019-06-02] MEDS ORDERED: LIDOCAINE 1% INJ 10MG/ML (20 ML MDV) SQ ONE (07:36)
--- NOTE | 2019-06-02 08:16 | P.PCN ---
Preoperative Diagnosis: Left upper extremity venogram 50 mL of IV dye was injected in the left upper extremity Cinefluoroscopy was performed Patent left axillary subclavian innominate system Conscious sedation Patient underwent EP procedure under conscious sedation/moderate sedation, monitoring of the level of consciousness and physiologic parameters including but not limited to vital signs and oxygenation. Patient tolerated the procedure well without any acute complications. Start time: 736 Stop time: 813 37 minutes
--- NOTE | 2019-06-02 08:39 | CE ---
CARDIAC ELECTROPHYSIOLOGY REPORT Mr. Liudmila Lara is an 88-year-old male patient who has a history of recurrent syncope. Most of his episodes are secondary to dysautonomia and drop in blood pressure. However, he has had one episode where he was sitting and he suddenly lost consciousness which was very different according to his from his prior episodes. This was a prolonged episode. In the hospital, he has experienced bradycardia. He has persistent atrial fibrillation. Amiodarone has been discontinued permanently. He is brought in for single-chamber pacemaker implantation for prevention of bradycardia and syncope. Patient was brought to the EP lab in a fasting state. Written informed consent was obtained prior to the procedure. The left shoulder area was prepped and draped as per protocol and 1% lidocaine was used for local anesthesia. A 4 cm incision was made parallel to the deltopectoral groove, about 1.5 cm medial to it the incision was carried down to the level of the pectoralis muscle. A subfascial pocket was made. Hemostasis was assured. The left axillary vein was accessed at a single point and via an appropriately-sized introducer sheath a Medtronic lead was positioned in the RV. Initially, the lead was positioned in the RV apex. However, the thresholds were suboptimal and therefore this lead was repositioned in the RV septum using a Mond stylet. R-waves 5.1 mV, pacing impedance 760 ohms, pacing threshold 1 V at 0.5 milliseconds. The lead was secured to the underlying pectoralis fascia using 2 nonabsorbable sutures. Pocket was irrigated with antibiotic solution. Lead was connected to the generator (Medtronic Centennial SR MRI model number W3SR01, serial #[id number]). The lead and generator were then placed in subfascial pocket and the wound was closed in 3 layers and dressed per protocol. The device was then programmed to VVI 50 beats per minute to prevent bradycardia that would result in syncope. PLAN: Hold Xarelto for 24 hours and if hemodynamically stable, then start Xarelto tomorrow once again for stroke prevention. Stop amiodarone completely. The patient is intrinsically rate controlled and has intermittent severe bradycardia. MMODL / IJN: [id number] /
--- NOTE | 2019-06-02 09:29 | P.PN ---
Subjective Patient is seen in follow-up for acute kidney injury on chronic kidney disease. Renal function improved. Patient just returned from pacemaker placement. No pain. No active complaints at this time. Vital signs are stable. General: The patient appeared well nourished and normally developed. HEENT: Head exam is unremarkable. Neck is without jugular venous distension. LUNGS: Lungs are clear to auscultation and percussion. Breath sounds decreased. HEART: Rate and Rhythm are regular. First and second heart sounds normal. No murmurs, rubs or gallops. ABDOMEN: Abdominal exam reveals normal bowel sounds. Non-tender and non- distended. No evidence of peritonitis. EXTREMITITES: No clubbing, cyanosis, or edema. Objective - Vital Signs Vital signs: Vital Signs Temp 97.9 F 06/02/19 04:00 Pulse 97 06/02/19 04:00 Resp 18 06/02/19 04:00 BP 107/74 06/02/19 04:00 Pulse Ox 95 06/02/19 04:00 Intake & Output 06/01/19 06/02/19 06/02/19 18:59 06:59 18:59 Intake Total 240 50 50 Output Total 200 650 Balance 40 -600 50 Weight 79.5 kg Intake: IV 50 50 Oral 240 Output: Urine 200 650 Other: Voiding Method Urinal Diaper Incontinent # Voids 3 # Bowel Movements 1 1 - Labs CBC & Chem 7: 06/02/19 05:52 06/01/19 06:01 Labs: Abnormal Lab Results - Last 24 Hours (Table) 06/02/19 Range/Units 05:52 RBC 3.76 L (4.30-5.90) m/uL Hgb 11.9 L (13.0-17.5) gm/dL Hct 35.5 L (39.0-53.0) % RDW 16.1 H (11.5-15.5) % Assessment and Plan Plan: Assessment: 1. Acute kidney injury mostly prerenal secondary to bradycardia and diuresis. Creatinine 1.87 on admission and was down to 1.57 as of yesterday. No proteinuria on UA. 2. Chronic kidney disease stage III Baseline creatinine in the range of 1.3-1.6 secondary to nephrosclerosis. 3. Syncopal episode. Possibly related to bradycardia vs hypotension. Cardiology following. Status post pacemaker placement this morning. 4. Chronic hypotension maintained on midodrine. 5. Chronic kidney disease mineral bone disease maintained on calcitriol. 6. Chronic systolic CHF with ejection fraction of 45-50%. Plan: Continue to hold Bumex. Avoid nephrotoxins. Continue to monitor renal function and urine output.
[2019-06-02] MEDS: ALLOPURINOL 100 MG TAB PO SCH (11:11)
[2019-06-02] MEDS: CHOLECALCIFEROL 1,000 UNIT TAB PO SCH (11:11)
[2019-06-02] MEDS: CALCITRIOL 0.25 MCG CAP PO SCH (11:12)
--- NOTE | 2019-06-02 11:39 | P.PN ---
Subjective Patient resting in bed sedated from of procedure pacemaker insertion. Family at bedside questions answered. Patient had an EEG showed no seizure activity but metabolic encephalopathy Objective - Vital Signs Vital signs: Vital Signs Temp 97.5 F L 06/02/19 08:20 Pulse 97 06/02/19 04:00 Resp 16 06/02/19 08:20 BP 100/60 06/02/19 10:00 Pulse Ox 98 06/02/19 08:20 Intake & Output 06/01/19 06/02/19 06/02/19 18:59 06:59 18:59 Intake Total 240 50 50 Output Total 200 650 125 Balance 40 -600 -75 Weight 79.5 kg Intake: IV 50 50 Oral 240 Output: Urine 200 650 125 Other: Voiding Method Urinal Urinal Diaper Incontinent # Voids 3 1 # Bowel Movements 1 1 - Constitutional General appearance: Present: mild distress - EENT Eyes: Present: PERRLA ENT: Present: hard of hearing Ears: bilateral: normal - Neck Neck: Present: normal ROM - Respiratory Respiratory: bilateral: CTA - Cardiovascular Rhythm: irregularly irregular - Gastrointestinal General gastrointestinal: Present: normal bowel sounds, soft - Integumentary Integumentary: Present: normal - Neurologic Neurologic: Present: CNII-XII intact - Musculoskeletal Musculoskeletal: Present: generalized weakness - Psychiatric Psychiatric Comment(s): Patient sedated from procedure IV sedation but easily awakened - Labs CBC & Chem 7: 06/02/19 05:52 06/01/19 06:01 Labs: Abnormal Lab Results - Last 24 Hours (Table) 06/02/19 Range/Units 05:52 RBC 3.76 L (4.30-5.90) m/uL Hgb 11.9 L (13.0-17.5) gm/dL Hct 35.5 L (39.0-53.0) % RDW 16.1 H (11.5-15.5) % Assessment and Plan Plan: Assessment Syncope related hyportension/ bradycardia Post pacemaker insertion Hypotension Atrial fibrillation persistent History of coronary disease with GA and stents Dementia Chest pain troponins positive 3 diagnosed with renal insufficiency Heart of hearing Hyperlipidemia Osteoarthritis Chronic kidney disease stage III Seizure activity ruled out Plan Continue consultation with cardiology and nephrology
--- NOTE | 2019-06-02 14:03 | CT ---
EXAMINATION TYPE: CT brain wo con DATE OF EXAM: 06/02/2019 COMPARISON: 10/25/2018 CT HISTORY: Syncope CT DLP: 1200.5 mGycm Automated exposure control for dose reduction was used. TECHNIQUE: CT scan of the head is performed without contrast. FINDINGS: There is no acute intracranial hemorrhage or midline shift identified. There is diffuse v entricular and sulcal prominence consistent with diffuse age-related cerebral atrophy. There are bila teral basal ganglia calcifications. There is low-attenuation in the periventricular white matter most commonly related to chronic small vessel ischemic change. The globes are intact. There is small siz e of the left maxillary sinus that may be congenital, postsurgical or posttraumatic in nature. Old fr acture deformities are seen in the medial orbital hines. Cerumen is incidentally seen within the left external auditory canal. IMPRESSION: 1. No acute intracranial hemorrhage or midline shift. 2. Diffuse age-related cerebral atrophy. 3. Mild burden nonspecific white matter change, most commonly on the basis of chronic microangiopathy .
[2019-06-02 19:49] VITALS: RESP 16
[2019-06-02] MEDS: DONEPEZIL 10 MG TAB PO SCH (20:04)
[2019-06-02] MEDS: ASPIRIN 81 MG PO SCH (20:04)
[2019-06-03] MEDS: MIDODRINE 5 MG TAB PO SCH ×3 (06:06→16:48)
[2019-06-03 07:24] LABS: Basophils % (A) 0 %; Eosinophils # (A) 0.3 k/uL (0-0.7); Eosinophils % (A) 4 %; HCT 36.7 % (39.0-53.0); HGB 11.4 gm/dL (13.0-17.5); Hypochromasia Slight; Lymphocytes # (A) 1.1 k/uL (1.0-4.8); Lymphocytes % (A) 14 %; MCH 29.6 pg (25.0-35.0); MCV 95.4 fL (80.0-100.0); Mean Platelet Volume 8.5; Monocytes # (A) 0.5 k/uL (0-1.0); Monocytes % (A) 6 %; Neutrophils # (A) 5.7 k/uL (1.3-7.7); Neutrophils % (A) 74 %; Platelet Count 137 k/uL (150-450); RBC 3.85 m/uL (4.30-5.90); WBC 7.8 k/uL (3.8-10.6)
[2019-06-03] MEDS: CHOLECALCIFEROL 1,000 UNIT TAB PO SCH (08:05)
[2019-06-03] MEDS: ALLOPURINOL 100 MG TAB PO SCH (08:05)
--- NOTE | 2019-06-03 08:47 | XR ---
EXAMINATION TYPE: XR chest 2V DATE OF EXAM: 06/03/2019 COMPARISON: 05/30/2019 INDICATION: Lead placement TECHNIQUE: Frontal and lateral views of the chest are obtained. FINDINGS: The heart size is normal. The pulmonary vasculature is normal. The lungs are clear. Pacemaker overlies left chest. Single lead pacemaker is present. No pneumothora x is evident. IMPRESSION: 1. No pneumothorax post pacemaker placement.
--- NOTE | 2019-06-03 11:13 | P.PN ---
Subjective Patient is seen in follow-up for acute kidney injury on chronic kidney disease. Renal function improved. He underwent pacemaker placement yesterday. Heart rate is controlled. Hemodynamically stable. No pain. No active complaints at this time. Vital signs are stable. General: The patient appeared well nourished and normally developed. HEENT: Head exam is unremarkable. Neck is without jugular venous distension. LUNGS: Lungs are clear to auscultation and percussion. Breath sounds decreased. HEART: Rate and Rhythm are regular. First and second heart sounds normal. No murmurs, rubs or gallops. ABDOMEN: Abdominal exam reveals normal bowel sounds. Non-tender and non- distended. No evidence of peritonitis. EXTREMITITES: No clubbing, cyanosis, or edema. Objective - Vital Signs Vital signs: Vital Signs Temp 98.3 F 06/03/19 08:00 Pulse 63 06/03/19 08:00 Resp 16 06/03/19 08:00 BP 134/84 06/03/19 08:00 Pulse Ox 96 06/03/19 08:00 Intake & Output 06/02/19 06/03/19 06/03/19 18:59 06:59 18:59 Intake Total 750 Output Total 325 Balance 425 Weight 77.9 kg Intake: IV 50 Intake, IV Titration 100 Amount ceFAZolin 2 gm In Sodium 100 Chloride 0.9% 50 ml @ 100 mls/hr IVPB ONCE ONE Rx# :[id number] Oral 600 Output: Urine 325 Other: Voiding Method Urinal Urinal Urinal # Voids 1 - Labs CBC & Chem 7: 06/03/19 06:55 06/01/19 06:01 Labs: Abnormal Lab Results - Last 24 Hours (Table) 06/03/19 Range/Units 06:55 RBC 3.85 L (4.30-5.90) m/uL Hgb 11.4 L (13.0-17.5) gm/dL Hct 36.7 L (39.0-53.0) % RDW 16.0 H (11.5-15.5) % Plt Count 137 L (150-450) k/uL Assessment and Plan Plan: Assessment: 1. Acute kidney injury mostly prerenal secondary to bradycardia and diuresis. Creatinine 1.87 on admission and was down to 1.57 as of June 01. No proteinuria on UA. 2. Chronic kidney disease stage III Baseline creatinine in the range of 1.3-1.6 secondary to nephrosclerosis. 3. Syncopal episode. Possibly related to bradycardia vs hypotension. Cardiology following. Status post pacemaker placement on June 02. 4. Chronic hypotension maintained on midodrine. 5. Chronic kidney disease mineral bone disease maintained on calcitriol. 6. Chronic systolic CHF with ejection fraction of 45-50%. Plan: Continue to hold Bumex. Avoid nephrotoxins. Continue to monitor renal function and urine output.
[2019-06-03 12:41] VITALS: BP 114/72; PULSE 72; TEMP 98.2
--- NOTE | 2019-06-03 13:08 | P.PN ---
Subjective Progress Note Date: 06/03/19 This is an 88-year-old gentleman with past medical history significant for persistent atrial fibrillation, abdominal aortic aneurysm, coronary artery disease with prior stent placement, hypertension, hyperlipidemia, presented to the hospital after experiencing a syncopal episode. Patient has had several s yncopal episodes. It was believed initially to be due to low blood pressure and the patient's being treated with midodrine. Patient was also noted to have significant pauses with associated bradycardia. Patient was seen in consultation yesterday evening by Dr. Kyle, adjustments were made on the timing of when the patient states his midodrine, he is also scheduled to undergo implantation of a permanent pacemaker tomorrow morning at 7 AM. The risks and benefits of the procedure were explained to the patient and his in detail. 06/03/2019 was seen and examined this morning, sitting up in his chair at bedside, family present. He underwent implantation of a permanent pacemaker yesterday by Dr. Kyle. The device was interrogated this morning and is functioning appropriately. Chest x-ray did not reveal any evidence for pneumothorax. Blood pressure 114/70 with a heart rate in the 70s, 93% on room air. White blood cell count 7.8, hemoglobin 11.4, platelet count 137. Objective - Vital Signs Vital signs: Vital Signs Temp 98.2 F 06/03/19 12:00 Pulse 72 06/03/19 12:00 Resp 16 06/03/19 12:00 BP 114/72 06/03/19 12:00 Pulse Ox 93 L 06/03/19 12:00 Intake & Output 06/02/19 06/03/19 06/03/19 18:59 06:59 18:59 Intake Total 750 Output Total 325 Balance 425 Weight 77.9 kg Intake: IV 50 Intake, IV Titration 100 Amount ceFAZolin 2 gm In Sodium 100 Chloride 0.9% 50 ml @ 100 mls/hr IVPB ONCE ONE Rx# :[id number] Oral 600 Output: Urine 325 Other: Voiding Method Urinal Urinal Urinal # Voids 1 - Exam PHYSICAL EXAMINATION: GENERAL: 88-year-old gentleman, lying in bed, comfortable at present, in no acute distress HEENT: Head is atraumatic, normocephalic. Pupils equal, round. Sclera anicteric. Conjunctiva are clear. Mucous membranes of the mouth are moist. Neck is supple. There is no elevated jugular venous pressure. No carotid bruit is heard. HEART EXAMINATION: S1 and S2 irregularly irregular CHEST EXAMINATION: Lungs are clear to auscultation and precussion. No chest wall tenderness is noted on palpation or with deep breathing. ABDOMEN: Soft, nontender. Bowel sounds are heard. No organomegaly noted. EXTREMITIES: 2+ peripheral pulses with no evidence of peripheral edema and no calf tenderness noted. NEUROLOGIC patient is awake, alert and oriented 2 . . 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 We'll make a follow-up appointment in the office and in the device clinic post discharge. DNP note has been reviewed, I agree with a documented findings and plan of care. Patient was seen and examined.
--- NOTE | 2019-06-03 14:34 | P.CONS ---
History of Present Illness - Chief Complaint Medical debility - History of Present Illness I had the opportunity to see patient for inpatient rehab consultation with regard to cardiac debility. He was admitted to [facility] May 30 with cardiac syncope. This apparently been a problem for the last year including atrial fibrillation, cardiac stents and repeated syncope. Patient to value by Dr. Martini for syncope. Seen by Dr. Painter for acute on chronic kidney disease. Seen by cardiology who did place permanent pacemaker. Chest x-rays followed. Head CT with age-related change. PT reports minimal assistance for transfers and gait 60-70 feet with hemiwalker or elbow be Q see. OT reports moderate assistance for upper dressing, bathing and transfers and maximal assistance for lower dressing and toileting. Previous functional history as elicited patient and corroborated by and daughter: 89-year-old right-handed white male who is lives in one floor home with . Both retired. does cooking, laundry, driving. His been physically assisting patient with sitdown shower and dressing for the last year due to his cardiac condition and syncope. Using [address] for gait[address] Lilliam Lara is PMD. Denies tobacco or alcohol. Family history of cardiac disease in mother and multiple siblings. Review of Systems Review of systems: ENT: Denies sneezes or discharge. Eyes: Denies discharge or photophobia. Cardiac: Denies chest pain or palpitation. Pulmonary: Denies cough or shortness of breath. Gastrointestinal: Denies nausea, emesis, constipation, diarrhea. Genitourinary: Denies discharge or frequency. Musculoskeletal: Denies muscle or bone aches. Neurologic: At least mild lightheadedness. Endocrine: Denies shakes or sweats. Oncology: Denies cancers. Dermatologic: Denies rash, itching, pruritus. ALLERGY/immunology: Denies sneezes, rashes. Past Medical History Past Medical History: Atrial Fibrillation, Coronary Artery Disease (CAD), Chest Pain / Angina, Dementia, Hearing Disorder / Deafness, Hyperlipidemia, Myocardial Infarction (IL), Osteoarthritis (OA), Renal Disease, Syncope Additional Past Medical History / Comment(s): DJD, AAA-NOT SURE OF SIZE, "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 Low blood pressure. Does get confused @ times. Last Myocardial Infarction Date:: 2000 History of Any Multi-Drug Resistant Organisms: None Reported Past Surgical History: Heart Catheterization With Stent, Joint Replacement, Orthopedic Surgery Additional Past Surgical History / Comment(s): LEFT KNEE REPLACED, YOSELIN CATARACTS, CARDIAC STENTS X2, 3rd stent placed 03/31/2017"LT KIDNEY BX-NEG", colonoscopy. Past Anesthesia/Blood Transfusion Reactions: Motion Sickness Date of Last Stent Placement:: 2016 Past Psychological History: No Psychological Hx Reported Smoking Status: Never smoker Past Alcohol Use History: None Reported Past Drug Use History: None Reported - Past Family History Mother Additional Family Medical History / Comment(s): "HEART PROBLEMS" Father Family Medical History: Pneumonia Medications and Allergies Home Medications Medication Instructions Recorded Confirmed Type Nitroglycerin Sl Tabs [Nitrostat] 0.4 mg SUBLINGUAL Q5M PRN #100 tab 07/18/16 05/30/19 Rx Allopurinol [Zyloprim] 100 mg PO DAILY 03/27/17 05/30/19 History Rivaroxaban [Xarelto] 15 mg PO W/SUPPER #90 tab 04/01/17 05/30/19 Rx Bumetanide [BUMEX] 0.25 mg PO DAILY 10/25/18 05/30/19 History Cholecalciferol [Vitamin D3 (25 1,000 unit PO DAILY 10/25/18 05/30/19 History Mcg = 1000 Iu)] Donepezil [Aricept] 10 mg PO HS 10/25/18 05/30/19 History Amiodarone [Cordarone] 100 mg PO DAILY 05/30/19 05/30/19 History Aspirin EC [Ecotrin Low Dose] 81 mg PO HS 05/30/19 05/30/19 History Calcitriol [Rocaltrol] 0.25 mcg PO TUTHSA 05/30/19 05/30/19 History Midodrine [ProAmatine] 5 mg PO TID 05/30/19 05/30/19 History Allergies Allergy/AdvReac Type Severity Reaction Status Date / Time flecainide Allergy Swelling Verified 05/30/19 16:55 steroids Allergy Rapid Uncoded 05/30/19 12:18 Heart Rate Physical Exam Vitals: Vital Signs Temp Pulse Resp BP BP BP Pulse Ox 06/03/19 12:00 98.2 F 72 16 114/72 93 L 06/03/19 08:00 98.3 F 63 16 134/84 96 06/03/19 03:10 97.7 F 65 16 121/75 93 L 06/02/19 23:15 97.7 F 52 L 16 129/78 98 06/02/19 19:20 97.9 F 55 L 16 143/76 97 06/02/19 16:20 97.7 F 61 18 99/63 98 Intake and Output 06/02/19 06/03/19 06/03/19 22:59 06:59 14:59 Intake Total 340 Output Total 200 Balance 140 Intake: Intake, IV Titration 100 Amount ceFAZolin 2 gm In Sodium 100 Chloride 0.9% 50 ml @ 100 mls/hr IVPB ONCE ONE Rx# :[id number] Oral 240 Output: Urine 200 Other: Voiding Method Urinal Urinal Urinal Weight 77.9 kg Skin: Atrophic, intact. General: Medium build and comfortable appearance. Head: Normocephalic, atraumatic. Eyes: Symmetric. Pupils equal round. Ears: Symmetric. Hearing within normal limits. Mouth: Clear. Neck: Supple. Carotid without bruit. Cardiac: Regular rate and rhythm. Lungs: Clear anteriorly and posteriorly. Abdomen: Soft active nontender. Extremities: Normal tone. Neurological: Mental status: Alert, cooperative, pleasant. Cranial nerves: Symmetric facial tone and trapezius. Motor: Active movement and isolation all 4 limbs. Sensation: Intact throughout. DTRs: Symmetric and equal throughout. Mobility: Requires minimal to moderate assist for functional mobility per PT and OT. Results CBC & Chem 7: 06/03/19 06:55 06/01/19 06:01 Labs: Abnormal Lab Results - Last 24 Hours (Table) 06/03/19 Range/Units 06:55 RBC 3.85 L (4.30-5.90) m/uL Hgb 11.4 L (13.0-17.5) gm/dL Hct 36.7 L (39.0-53.0) % RDW 16.0 H (11.5-15.5) % Plt Count 137 L (150-450) k/uL Assessment and Plan (1) Syncope Current Visit: Yes Status: Acute Code(s): R55 - SYNCOPE AND COLLAPSE SNOMED Code(s): 271044355 (2) Atrial fibrillation with rapid ventricular response Current Visit: No Status: Acute Code(s): I48.91 - UNSPECIFIED ATRIAL FIBRILLATION SNOMED Code(s): 441733874401196 Plan: Impression: 1. Cardiac debility. 2. A. fib with RVR. 3. Cardiac disease with Syncope, IL. 4. Acute on chronic kidney disease. 5. Osteoarthritis. 6. Dementia. 7. Dyslipidemia. 8. Deafness. Comments and plan: At this time PT and OT are ongoing and safety concerns noted. Have discussed possible inpatient rehab with patient and family and all seem agreeable.
--- NOTE | 2019-06-03 14:42 | P.DS ---
Providers Date of admission: 05/31/19 16:24 Attending physician: Rusty Lara Consults: 05/30/19 15:10 Consult Physician Urgent Consulting Provider: Leeanna Martini Consult Reason/Comments: syncope Do you want consulting provider notified?: Yes Consult Physician Urgent Consulting Provider: Tao Flores Consult Reason/Comments: syncope Do you want consulting provider notified?: Yes 05/31/19 15:11 Consult Physician Routine Consulting Provider: Jaya Kyle Consult Reason/Comments: pauses, need for permanent pacemaker Do you want consulting provider notified?: Already Contacted 06/03/19 12:52 Consult Physician Urgent Consulting Provider: See Gutierrez Consult Reason/Comments: rehab Do you want consulting provider notified?: Yes Primary care physician: Rusty Lara Hospital Course: Final diagnosis Syncope multifactorial orthostatic hypotension and as well as dysautonomia as well as tachybradycardia syndrome Status post pacemaker implantation Persistent atrial fibrillation CAD stent a history Abdominal aortic aneurysm Hypertension Hyperlipidemia DJD Heart of hearing Dementia Chronic kidney disease stage III Seizure activity ruled out Full code Discharge disposition The patient be discharged in a stable pressure the guarded prognosis to inpatient rehab under Dr. Gibson to [facility]. Total time taken 35 minutes. History of present illness This 88-year-old gentleman with a past medical history multiple medical problems being followed by Dr. Lara in the outpatient setting was admitted syncope. Patient was thought to have orthostatic hypotension as well as dysautonomia. Patient also had a tachycardic syndrome. Patient was evaluated by cardiology. Pacemaker was implanted. Patient improved significantly. Patient had gait dysfunction and generalized weakness. Dr. Gibson evaluated the patient. Patient be transferred to inpatient rehab for further evaluation and treatment at this time. On exam vitals are stable. Cardio S1 and S2 normal. Respirator system few rhonchi. Abdomen soft nontender. Nervous system diffusely weak. Please review the medication reconciliation sheet for discharge medications. Plan - Discharge Summary Discharge Rx Participant: Yes New Discharge Prescriptions: New Folic Acid 1 mg PO DAILY #30 tablet Multivitamins, Thera [Multivitamin] 1 tab PO DAILY #30 tablet HYDROcodone/APAP 5-325MG [[place] 5-325] 1 each PO Q4HR PRN tab PRN Reason: Pain Acetaminophen Tab [Tylenol] 650 mg PO Q6HR PRN tab PRN Reason: Mild Pain Thiamine [Vitamin B-1] 100 mg PO DAILY #30 tablet Continue Nitroglycerin Sl Tabs [Nitrostat] 0.4 mg SUBLINGUAL Q5M PRN #100 tab PRN Reason: Chest Pain Allopurinol [Zyloprim] 100 mg PO DAILY Rivaroxaban [Xarelto] 15 mg PO W/SUPPER #90 tab Donepezil [Aricept] 10 mg PO HS Cholecalciferol [Vitamin D3 (25 Mcg = 1000 Iu)] 1,000 unit PO DAILY Bumetanide [BUMEX] 0.25 mg PO DAILY Amiodarone [Cordarone] 100 mg PO DAILY Calcitriol [Rocaltrol] 0.25 mcg PO TUTHSA Aspirin EC [Ecotrin Low Dose] 81 mg PO HS Midodrine [ProAmatine] 5 mg PO TID Discharge Medication List Nitroglycerin Sl Tabs [Nitrostat] 0.4 mg SUBLINGUAL Q5M PRN #100 tab 07/18/16 [Rx] Allopurinol [Zyloprim] 100 mg PO DAILY 03/27/17 [History] Rivaroxaban [Xarelto] 15 mg PO W/SUPPER #90 tab 04/01/17 [Rx] Bumetanide [BUMEX] 0.25 mg PO DAILY 10/25/18 [History] Cholecalciferol [Vitamin D3 (25 Mcg = 1000 Iu)] 1,000 unit PO DAILY 10/25/18 [History] Donepezil [Aricept] 10 mg PO HS 10/25/18 [History] Amiodarone [Cordarone] 100 mg PO DAILY 05/30/19 [History] Aspirin EC [Ecotrin Low Dose] 81 mg PO HS 05/30/19 [History] Calcitriol [Rocaltrol] 0.25 mcg PO TUTHSA 05/30/19 [History] Midodrine [ProAmatine] 5 mg PO TID 05/30/19 [History] Acetaminophen Tab [Tylenol] 650 mg PO Q6HR PRN tab 06/03/19 [Rx] Folic Acid 1 mg PO DAILY #30 tablet 06/03/19 [Rx] HYDROcodone/APAP 5-325MG [[place] 5-325] 1 each PO Q4HR PRN tab 06/03/19 [Rx] Multivitamins, Thera [Multivitamin] 1 tab PO DAILY #30 tablet 06/03/19 [Rx] Thiamine [Vitamin B-1] 100 mg PO DAILY #30 tablet 06/03/19 [Rx] Follow up Appointment(s)/Referral(s): [facility] [Provider Group] - 06/07/19 9:30 am (Device clinic for pacemaker check and dressing removal.) Rusty Lara MD [Primary Care Provider] - 06/08/19 10:40 am [facility] [NON-STAFF] - Ben De Leon MD [STAFF PHYSICIAN] - 06/14/19 3:15 pm Bebeto Painter DO [STAFF PHYSICIAN] - 1 Week (Kidney specialist.) Patient Instructions/Handouts: Syncope (DC), Bradycardia (DC), Pacemaker (DC) Activity/Diet/Wound Care/Special Instructions: PACEMAKER INSERTION PRECAUTIONS: 1. Keep dressing dry and intact for 5 days. You may cover the area with saran or cling wrap, prior to a shower. 2. The dressing will be removed in the Device Clinic at [facility]. Absorbable sutures were used to close the wound. 3. Avoid raising the left arm above the shoulder level. (4-week restriction). 4. Avoid arm movements, like backscratching, rubbing your head, or pulling on a cord with your left arm. (4-week restriction). 5. Gentle range of motion movements of the left shoulder should be performed to avoid a frozen shoulder. (Pendulum exercises). 6. The opposite arm may be used freely. 7. Avoid driving for 7 days. 8. Avoid activities such as golfing, swimming, week whacking, lifting more than 10 pounds of weight, bowling, gymnastics and weight training/lifting. (6-week restriction). 9. Activities such as chopping wood, pull-ups, power lifting, welding, and being around an induction cooktop will always be a problem and can interfere with your pacemaker. 10.Your arm sling is only a reminder to not lift your arm above your head. You do not need to keep the arm completely immobilized. You are free to move your arm and use it for normal activities. In case of any problems, please call [facility], [place] @ [phone].
[2019-06-03] MEDS ORDERED: RIVAROXABAN 15 MG TAB PO SCH (17:30)
== END 2019-06-03 17:50 | DRG 40 ==
LOC: EC 12:08 → 3SCARD 15:20 → OBSVTOIN 05-31 16:24
PROVIDERS: ADMIT Family Medicine; ATTEND Family Medicine
PROC: B51N1ZZ Fluoroscopy of Left Upper Extremity Veins using Low Osmolar Contrast (ICD-10-PCS; 2019-06-02)
PROC: 02HK3JZ Insertion of Pacemaker Lead into Right Ventricle, Percutaneous Approach (ICD-10-PCS; principal; 2019-06-02 07:00)
PROC: 0JH604Z Insertion of Pacemaker, Single Chamber into Chest Subcutaneous Tissue and Fascia, Open Approach (ICD-10-PCS; principal; 2019-06-02 07:00)
DX: G90.9 Disorder of the autonomic nervous system, unspecified (principal); G93.41 Metabolic encephalopathy; I13.0 Hypertensive heart and chronic kidney disease with heart failure and stage 1 through stage 4 chronic kidney disease, or unspecified chronic kidney disease; I48.19 Other persistent atrial fibrillation; I50.22 Chronic systolic (congestive) heart failure; N17.9 Acute kidney failure, unspecified; I49.5 Sick sinus syndrome; F03.90 Unspecified dementia, unspecified severity, without behavioral disturbance, psychotic disturbance, mood disturbance, and anxiety; N18.3 Chronic kidney disease, stage 3 (moderate); I95.1 Orthostatic hypotension; E78.5 Hyperlipidemia, unspecified; H91.90 Unspecified hearing loss, unspecified ear; I25.10 Atherosclerotic heart disease of native coronary artery without angina pectoris; I25.2 Old myocardial infarction; I71.4 Abdominal aortic aneurysm, without rupture; M19.90 Unspecified osteoarthritis, unspecified site; M89.8X9 Other specified disorders of bone, unspecified site; R26.9 Unspecified abnormalities of gait and mobility; N28.1 Cyst of kidney, acquired; R79.89 Other specified abnormal findings of blood chemistry; R32 Unspecified urinary incontinence; R29.6 Repeated falls; T50.2X5A Adverse effect of carbonic-anhydrase inhibitors, benzothiadiazides and other diuretics, initial encounter; Z79.01 Long term (current) use of anticoagulants; Z79.02 Long term (current) use of antithrombotics/antiplatelets; Z79.899 Other long term (current) drug therapy; Z98.42 Cataract extraction status, left eye; Z98.41 Cataract extraction status, right eye; Z96.1 Presence of intraocular lens; Z96.652 Presence of left artificial knee joint; Z95.5 Presence of coronary angioplasty implant and graft; Z88.8 Allergy status to other drugs, medicaments and biological substances; Z82.49 Family history of ischemic heart disease and other diseases of the circulatory system; W19.XXXA Unspecified fall, initial encounter
CPT/HCPCS: 33207; 36415; 70450; 71046; 80048; 80053; 81001; 83735; 84439; 84443; 84484; 85025; 85379; 85610; 85730; 93005; 95819; 96360; 96361; 99285